=== PATIENT | female | born 1970 | race Caucasian/White ===

== ENCOUNTER 2023-04-13 11:31 | Outpatient (OUT) | payer OTHER, SELFPAY ==
[2023-04-13 12:09] LABS: Bilirubin Urine NEGATIVE (NEGATIVE); Blood Urine NEGATIVE (NEGATIVE); Clarity Urine CLEAR (CLEAR); Color Urine LT. YELLOW (YELLOW); Glucose Urine UA NEGATIVE (NEGATIVE); Ketones Urine NEGATIVE (NEGATIVE); Leukocyte Esterase Urine NEGATIVE (NEGATIVE); Nitrite Urine NEGATIVE (NEGATIVE); Protein Urine NEGATIVE (NEG/TRACE); Specific Gravity Urine 1.015 (1.005-1.025); Urobilinogen Urine 0.2 EU/dL (0.2-1.0); pH Urine 5.5 (5.0-9.0)
[2023-04-13 12:10] LABS: Basophils Absolute Auto 0.2 10^3/uL (0.0-0.1); Basophils Percent Auto 1.1 % (0.2-2.0); Eosinophils Absolute Auto 0.3 10^3/uL (0.0-0.7); Eosinophils Percent Auto 2.2 % (0.9-7.0); Hemoglobin 17.7 g/dL (12.0-16.0); Immature Granulocytes Abs Auto 0.06 10^3/uL (0.00-0.03); Immature Granulocytes Pct Auto 0.4 % (0.0-0.5); Lymphocytes Absolute Auto 4.2 10^3/uL (1.2-3.8); Mean Corpuscular HGB Conc 33.4 g/dL (29.9-35.2); Mean Corpuscular Hemoglobin 28.9 pg (26.7-34.0); Mean Corpuscular Volume 86.6 fL (81.0-99.0); Mean Platelet Volume 11.9 fL (9.5-13.5); Monocytes Absolute Auto 0.9 10^3/uL (0.3-0.8); Monocytes Percent Auto 6.5 % (1.7-12.0); Neutrophils Absolute Auto 8.3 10^3/uL (1.4-6.5); Neutrophils Percent Auto 59.8 % (43.0-75.0); Platelet Count 252 10^3/uL (150-450); Red Blood Count 6.12 10^6/uL (4.20-5.40); Red Cell Distribution Width 13.8 % (11.0-15.0); White Blood Count 13.9 10^3/uL (4.0-11.0)
[2023-04-13 12:15] LABS: Bacteria Urine NONE SEEN #/HPF (NONE SEEN); Mucus Urine NONE SEEN (NONE SEEN); RBC Urine NONE SEEN #/HPF (0-2); Squamous Epithelial Cell Urine FEW #/LPF (NONE/RARE); WBC Urine NONE SEEN #/HPF (NONE SEEN)
[2023-04-13 12:17] LABS: Cast Seen? NONE SEEN #/LPF (NONE SEEN); Crystals Seen? None Seen #/HPF (None Seen)
[2023-04-13 12:52] LABS: Estimated Average Glucose 275 mg/dL; Glycohemoglobin A1C 11.2 % (4.5-6.2)
[2023-04-13 12:59] LABS: Alanine Aminotransferase 30 U/L (14-59); Albumin Globulin Ratio 0.9; Albumin Level 3.7 g/dL (3.4-5.0); Alkaline Phosphatase 88 U/L (46-116); Anion Gap 14.4; Aspartate Amino Transferase 27 U/L (15-37); BUN Creatinine Ratio 10.1; Bilirubin Total 0.5 mg/dL (0.2-1.0); Calcium 9.8 mg/dL (8.5-10.1); Chloride 99 mmol/L (98-107); Cholesterol 175 mg/dL (<=200); Estimated GFR (African America >60 (>=60); Estimated GFR (Non-African Ame >60 (>=60); Globulin 4.2 g/dL; Glucose 131 mg/dL (74-106); HDL Cholesterol 58 mg/dL (40-60); LDL Cholesterol Calculated 97.2 mg/dL; Potassium 4.4 mmol/L (3.5-5.1); Sodium 138 mmol/L (136-145); Total Protein 7.9 g/dL (6.4-8.2); Triglycerides 99 mg/dL (<=150); VLDL CHOLESTEROL 19.8 mg/dL
[2023-04-13 13:35] LABS: Microalbumin Urine Random <1.3 mg/dL (<=30.0)
== END 2023-04-13 11:32 | disposition home or self-care (01) ==
LOC: LAB 11:34
PROVIDERS: PCP Nurse Practitioner; Visit Provider Nurse Practitioner
DX: E78.5 Hyperlipidemia, unspecified (principal); I10 Essential (primary) hypertension; E11.9 Type 2 diabetes mellitus without complications; Z79.4 Long term (current) use of insulin
CPT/HCPCS: 36415; 80053; 80061; 81001; 82043; 83036; 85025

== ENCOUNTER 2023-05-11 12:58 | Outpatient (OUT) | payer OTHER, SELFPAY ==
--- NOTE | 2023-05-11 13:02 | MM_ITS ---
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 MG MAMM SCREEN FARAZ W CAD, 02/14/2018. MG MAMM SCREEN FARAZ W CAD, 02/08/2017. MG MAMM FARAZ SCRN W CAD DIG, 05/16/2014. INDICATIONS: Z12.31 Calculator Name NCI Breast Cancer Risk Assessment Tool 5 Year Breast Cancer Risk 1.00% Lifetime Breast Cancer Risk 7.50% Personal Breast Cancer No Personal Ovarian Cancer No Treatments None Family Cancers None LOCATION: [facility] BREAST COMPOSITION: Scattered areas fibroglandular density. FINDINGS: DIAGNOSTIC CATEGORY 2--BENIGN FINDING: RIGHT BREAST: No significant suspicious finding. Scattered benign-appearing calcifications are present. No significant change has occurred. LEFT BREAST: No significant suspicious finding. Scattered benign-appearing calcifications are present. No significant change has occurred. RECOMMENDATIONS: ROUTINE MAMMOGRAM AND CLINICAL EVALUATION IN 12 MONTHS. PLEASE NOTE: A NORMAL MAMMOGRAM DOES NOT EXCLUDE THE POSSIBILITY OF BREAST CANCER. A CLINICALLY SUSPICIOUS PALPABLE LUMP SHOULD BE BIOPSIED. Dictated by: Juan Francisco Harvey M.D. on 05/13/2023 at 10:44 Approved by: Juan Francisco Harvey M.D. on 05/13/2023 at 10:47
== END 2023-05-11 12:59 | disposition home or self-care (01) ==
LOC: MAMMO 12:58
PROVIDERS: PCP Nurse Practitioner; Visit Provider Nurse Practitioner
DX: Z12.31 Encounter for screening mammogram for malignant neoplasm of breast (principal)
CPT/HCPCS: 77063; 77067

== ENCOUNTER 2024-01-01 15:50 | Emergency (ER) | payer OTHER, SELFPAY ==
[2024-01-01 15:56] VITALS: BP 170/97; PULSE 98; TEMP 36.4; O2SAT 96; BMI 71.8
--- NOTE | 2024-01-01 16:02 | XR_ITS ---
The [address] [address] Patient Name: CAROLE GUTIÉRREZ MRN: [id number] date: 1970 Sex: F Assigned Patient Location: ER Current Patient Location: Accession/Order Number: [id number] Exam Date: 01/01/2024 16:30 Report Date: 01/01/2024 17:13 At the request of: CARLOS ATWOOD Procedure: XR ankle LT min 3V EXAM: XR ankle LT min 3V HISTORY: Fall COMPARISON: None. TECHNIQUE: 3 views of the left ankle FINDINGS: No acute fracture of the left ankle is seen. Acute minimally displaced fracture of the base of the fifth metatarsal is seen. Joint alignment is normal. Ankle mortise is intact. Soft tissue swelling is seen about the lateral ankle. XR/XR ankle LT min 3V IMPRESSION: Acute minimally displaced fracture of the base of the fifth metatarsal is seen. Electronically authenticated by: MILEY MASTERS Date: 01/01/2024 17:13
--- NOTE | 2024-01-01 16:02 | XR_ITS ---
The [address] [address] Patient Name: CAROLE GUTIÉRREZ MRN: [id number] date: 1970 Sex: F Assigned Patient Location: ER Current Patient Location: Accession/Order Number: [id number] Exam Date: 01/01/2024 16:30 Report Date: 01/01/2024 17:12 At the request of: CARLOS ATWOOD Procedure: XR foot LT min 3V EXAM: XR foot LT min 3V HISTORY: fall COMPARISON: None. TECHNIQUE: 3 views of the left foot FINDINGS: Acute minimally displaced fracture of the base of the fifth metatarsal is seen. Joint alignment is normal. Joint spaces are preserved. Soft tissues appear unremarkable. XR/XR foot LT min 3V IMPRESSION: Acute fracture of the base of the fifth metatarsal. Electronically authenticated by: MILEY MASTERS Date: 01/01/2024 17:12
--- NOTE | 2024-01-01 16:02 | ED.LOWEXI1 ---
HPI HPI - Extremity Injury (Lower) General Chief Complaint: Extremity Injury, Lower Stated Complaint: FALL, LOWER EXTREMITY PAIN, LEFT Time Seen by Provider: 01/01/24 15:52 Source: patient Mode of arrival: Wheelchair Limitations: no limitations History of Present Illness HPI Narrative: Patient is a 53-year-old female who presents to the emergency department for injury to the left foot and ankle. She states she was walking about 4 hours ago when she twisted her left ankle in a hole in the ground. She complains of pain diffusely over the left lateral foot and left lateral malleolus. She had no other associated injuries. She states the pain is causing spasms to go up her leg. She took ibuprofen about 4 hours ago without improvement. Her son drove her to the ER. She states initially she was able to bear weight and was able to walk herself into the home but is no longer able to bear weight due to pain. Related Data Previous Rx's ?Medication ?Instructions ?Recorded hydrocodone 5 mg-acetaminophen 325 1 tab PO Q6H PRN pain #12 tabs 01/01/24 mg tablet methocarbamol 750 mg tablet 750 mg PO TID PRN pain #20 tabs 01/01/24 Allergies Allergy/AdvReac Type Severity Reaction Status Date / Time bupropion [From Wellbutrin] Allergy Severe Swelling Verified 01/01/24 15:56 of Lip/Tongue/Throat Opioid HPI Opioid Management Most Recent Pain and Opioid Data: Last Pain Scale 8 01/01/24 16:11 Last MAR Pain Assessment 01/01/24 16:11 Review of Systems ROS Constitutional Denies: fever or chills Ears, nose, mouth, and throat Denies: throat pain Cardiovascular Denies: chest pain Respiratory Denies: shortness of breath or cough Gastrointestinal Denies: nausea or vomiting Musculoskeletal Reports: muscle cramps Integumentary/Breast Denies: rash Hematologic/Lymphatic Denies: easy bruising or easy bleeding Exam Narrative Exam Narrative: Gen.: Awake, alert, in no distress Head: Normocephalic, atraumatic ENT: Moist mucous membranes Respiratory: No respiratory distress Extremities: Tenderness and swelling to the left fifth metatarsal and left lateral malleolus with moderate edema of the ankle. No bony tenderness of the medial or posterior left ankle. No tenderness of the left tibia. Psych: Normal mood and affect Neuro: No focal neuro deficit Skin: Warm, dry, intact Constitutional Vital Signs, click to edit/add: Last Vital Signs Temp 97.6 F 01/01/24 15:56 Pulse 98 H 01/01/24 15:56 Resp 20 01/01/24 15:56 BP 170/97 H 01/01/24 15:56 Pulse Ox 96 01/01/24 15:56 O2 Del Method Room Air 01/01/24 15:56 Course Vital Signs Vital signs: Vital Signs Temperature 97.6 F 01/01/24 15:56 Pulse Rate 98 H 01/01/24 15:56 Respiratory Rate 20 01/01/24 15:56 Blood Pressure 170/97 H 01/01/24 15:56 Pulse Oximetry 96 01/01/24 15:56 Oxygen Delivery Method Room Air 01/01/24 15:56 Temperature 97.6 F 01/01/24 15:56 Pulse Rate 98 H 01/01/24 15:56 Respiratory Rate 20 01/01/24 15:56 Blood Pressure 170/97 H 01/01/24 15:56 Pulse Oximetry 96 01/01/24 15:56 Oxygen Delivery Method Room Air 01/01/24 15:56 MDM - Extremity Injury (Lower) MDM Narrative Medical decision making narrative: X-rays show a minimally displaced fracture of the left fifth metatarsal, proximal aspect. There is also an avulsion of the left distal fibula, the edges of this fracture are smooth and appear old, the patient has no focal tenderness over the left distal fibula on reevaluation by attending physician. She is placed in an Shahab wrap and walking boot. Rest, ice, elevate. Pain medication and muscle relaxant given for home. Follow-up with podiatry and return to the ER if symptoms change or worsen Patient is neurovascularly intact pre and post hardware application. Medical Records Attestation: I reviewed the patient's medical records. Imaging Data xr foot: Attestation: I have reviewed the pertinent imaging results. Discharge Plan Discharge Stand Alone Forms: Portal Instructions Chief Complaint: Extremity Injury, Lower Clinical Impression: Fracture of fifth metatarsal bone of left foot, Left ankle sprain Patient Disposition: Home, Self-Care Time of Disposition Decision: 16:40 Condition: Good Prescriptions / Home Meds: New hydrocodone-acetaminophen 5-325 mg tablet 1 tab PO Q6H PRN (Reason: pain) Qty: 12 0RF Rx Instructions: DX: M79.672 methocarbamol 750 mg tablet 750 mg PO TID PRN (Reason: pain) Qty: 20 0RF Print Language: [place] Citizen Instructions: Foot Fracture in Adults (ED) Referrals: Renee Blount NP [Primary Care Provider] - 1 week Orville Akers DPM [Physician] - 1 week
[2024-01-01] MEDS: HYDROCODONE/ACET 5-325 MG TABLET 1 TAB PO (16:11)
[2024-01-01] MEDS: METHOCARBAMOL 500 MG TABLET PO (16:11)
[2024-01-01 16:58] VITALS: BP 124/68; PULSE 64; O2SAT 96
== END 2024-01-01 16:59 | disposition home or self-care (01) ==
PROVIDERS: Emergency Provider Emergency Medicine; PCP Nurse Practitioner
DX: S92.352A Displaced fracture of fifth metatarsal bone, left foot, initial encounter for closed fracture (principal); S93.402A Sprain of unspecified ligament of left ankle, initial encounter; X50.1XXA Overexertion from prolonged static or awkward postures, initial encounter
CPT/HCPCS: 73610; 73630; 99284

== ENCOUNTER 2024-07-18 10:18 | Outpatient (OUT) | payer OTHER, SELFPAY ==
--- NOTE | 2024-07-18 10:21 | MM_ITS ---
Patient Name: CAROLE GUTIÉRREZ MR#: [id number] : 1970 Exam Date: 07/18/2024 Ordering Doctor: SAMANTHA Blount CNP RADIOLOGY REPORT PROCEDURE: MM TOMOSYNTHESIS SCREENING BI COMPARISON: MM TOMOSYNTHESIS SCREENING BI, 05/11/2023. MG MAMM SCREEN 3D FAR[place] CAD, 04/13/2022. MG MAMM SCREEN FARAZ W CAD, 02/14/2018. MG MAMM [facility] SCRN W CAD DIG, 05/16/2014. INDICATIONS: Screening Calculator Name NCI Breast Cancer Risk Assessment Tool 5 Year Breast Cancer Risk 1.10% Lifetime Breast Cancer Risk 7.40% Personal Breast Cancer No Personal Ovarian Cancer No Treatments None Family Cancers None LOCATION: [facility] BREAST COMPOSITION: There are scattered areas of fibroglandular density. FINDINGS: DIAGNOSTIC CATEGORY 2--BENIGN FINDING: RIGHT BREAST: No significant suspicious finding. Scattered benign-appearing calcifications are present. No significant change has occurred. LEFT BREAST: No significant suspicious finding. Scattered benign-appearing calcifications are present. No significant change has occurred. RECOMMENDATIONS: ROUTINE MAMMOGRAM AND CLINICAL EVALUATION IN 12 MONTHS. PLEASE NOTE: A NORMAL MAMMOGRAM DOES NOT EXCLUDE THE POSSIBILITY OF BREAST CANCER. A CLINICALLY SUSPICIOUS PALPABLE LUMP SHOULD BE BIOPSIED. Dictated by: Juan Francisco Harvey M.D. on 07/18/2024 at 11:15 Approved by: Juan Francisco Harvey M.D. on 07/18/2024 at 11:20
--- OUTSIDE RECORDS SUMMARY | 2024-07-18 10:21 | XMS_ITS | CCD ---
Author Organization [facility] Care Team Providers Care Manager Fund Name Role Phone AICHHOLZ, FUNERAL SALES MANAGER RENEE Primary Care Unavailable DR WYATT EDOUARD V Consulting Unavailable AICHHOLZ, FUNERAL SALES MANAGER RENEE Admitting Unavailable AICHHOLZ, FUNERAL SALES MANAGER RENEE Attending Unavailable AICHHOLZ, FUNERAL SALES MANAGER RENEE Consulting Unavailable AICHHOLZ, FUNERAL SALES MANAGER RENEE Primary Care Unavailable AICHHOLZ, FUNERAL SALES MANAGER RENEE Admitting Unavailable AICHHOLZ, FUNERAL SALES MANAGER RENEE Attending Unavailable AICHHOLZ, FUNERAL SALES MANAGER RENEE Consulting Unavailable Aichholz ROTARY DRYER OPERATOR, Renee Unavailable Mg Moyer MD Primary Care Provider [phone] SHAIKH BAH Attending Unavailable Aichholz FUNERAL SALES MANAGER, Renee Primary Care Provider [phone] Aichholz ROTARY DRYER OPERATOR, Renee Unavailable Mg Moyer MD Primary Care Provider Aichholz ROTARY DRYER OPERATOR, Renee Unavailable Aichholz ROTARY DRYER OPERATOR, Renee Unavailable AICHHOLZ, RENEE Attending Unavailable AICHHOLZ, RENEE Primary Care Unavailable SELF, SELF Referring Unavailable SELF, SELF Referring Unavailable AICHHOLZ, RENEE Attending Unavailable AICHHOLZ, RENEE Primary Care Unavailable AICHHOLZ, RENEE Primary Care Unavailable SELF, SELF Referring Unavailable OLEG BRYSON Attending Unavailable AICHHOLZ, RENEE Primary Care Unavailable RIEHM, RAY L Attending Unavailable SELF, SELF Referring Unavailable RIEHM, RAY L Referring Unavailable AICHHOLZ, RENEE Primary Care Unavailable RIEHM, RAY L Attending Unavailable AICHHOLZ, RENEE Primary Care Unavailable RIEHM, RAY L Attending Unavailable RIEHM, RAY L Referring Unavailable AICHHOLZ, RENEE Primary Care Unavailable AICHHOLZ, RENEE Attending Unavailable SELF, SELF Referring Unavailable RIEHM, RAY L Attending Unavailable AICHHOLZ, RENEE Primary Care Unavailable SELF, SELF Referring Unavailable AICHHOLZ, RENEE Primary Care Unavailable AICHHOLZ, RENEE Attending Unavailable SELF, SELF Referring Unavailable RIEHM, RAY L Referring Unavailable AICHHOLZ, RENEE Primary Care Unavailable RIEHM, RAY L Attending Unavailable RIEHM, RAY L Referring Unavailable AICHHOLZ, RENEE Primary Care Unavailable RIEHM, RAY L Attending Unavailable RIEHM, RAY L Attending Unavailable AICHHOLZ, RENEE Primary Care Unavailable SELF, SELF Referring Unavailable RIEHM, RAY L Referring Unavailable RIEHM, RAY L Attending Unavailable AICHHOLZ, RENEE Primary Care Unavailable Comfort WOODWARD, Mg Primary Care Provider [phone] Allergies Allergy Classification Reported Allergen(s) Allergy Type Date of Onset Reaction(s) Facility (1 source) buPROPion Drug Allergy 04-27-2003 [facility] Repository (18 sources) buPROPion Drug Allergy 07-20-2023 [facility] Medications Current Medications Medication Drug Class(es) Dates Sig (Normalized) Sig (Original) [id number] 200 actuat albuterol 0.09 mg/actuat metered dose inhaler (20 sources) beta2-Adrenergic Agonist Start: 11-14-2023 take 2 puff(s) by inhalation every six hours for wheezing albuterol HFA 90 mcg/act inhaler Indications: Chronic obstructive pulmonary disease, unspecified COPD type ([facility]) , Asthma, unspecified asthma severity, unspecified whether complicated, unspecified whether persistent ([facility]) Inhale 2 puffs every 6 (six) hours if needed for wheezing 18 g 1 11/14/2023 Active Start: 11-14-2023 take 2 puff(s) by in halation every six hours as needed Albuterol 108 (90 Base) MCG/ACT Aero Soln inhaler Inhale 2 puffs Every 6 hours as needed. 11/14/2023 Active Start: 09-28-2023 End: 10-28-2023 albuterol HFA 90 mcg/act inh aler Indications: Chronic obstructive pulmonary disease, unspecified COPD type ([facility]) , Asthma, unspecified asthma severity, unspecified whether complicated, unspecified whether persistent ([facility]) Inhale 2 puffs in the morning and 2 puffs at noon and 2 puffs in the evening and 2 puffs before bedtime. 18 g 1 09/28/2023 10/28/2023 Active albuterol (2.5 M G/3ML) 0.083% nebulizer solution Take 2.5 mg by nebulization every 6 (six) hours if needed for wheezing. Active aspirin 81 mg chewable tablet (4 sources) Platelet Aggregation Inhibitor, Nonsteroidal Anti-inflammatory Drug Start: 07-18-2024 End: 10-16-2024 aspirin 81 MG chewable tablet Indications: Primary hypertension ([facility]) , Type 2 diabetes mellitus without complication, with long-term current use of insulin ([facility]) Chew 1 tablet (81 mg) Daily 90 tablet 3 07/18/2024 10/16/2024 Active atorvastatin 40 mg oral tablet (15 sources) HMG-CoA Reductase Inhibitor Start: 06-12-2024 End: 09-10-2024 take 1 tablet by mouth at bedtime atorvastatin (Lipitor) 40 MG tablet Indications: Mixed hyperlipidemia ([facility]) Take 1 tablet (40 mg) by mouth at bedtime 90 tablet 06/12/2024 09/10/2024 Active Blood Glucose Monitoring Suppl (Blood Glucose Monitor System) w/Device kit (8 sources) End: 07-18-2024 Blood Glucose Monitoring Suppl (Blood Glucose Monitor System) w/Device kit 1 Device in the morning and 1 Device before bedtime. 07/18/2024 Discontinued (Therapy completed) Blood Glucose Mo nitoring Suppl (Blood Glucose Monitor System) w/Device kit 1 Device in the morning and 1 Device before bedtime. Active Blood Glucose Mo nitoring Suppl (Blood Glucose Monitor System) w/Device kit 1 Device in the morning and 1 Device before bedtime. 0 Active Continuous Glucose Global Professional (Dexcom G7 Global Professional) device (8 sources) Start: 06-12-2024 End: 06-12-2025 Continuous Glucose Global Professional (Dexcom G7 Global Professional) device Indications: Type 2 diabetes mellitus without complication, with long-term current use of insulin ([facility]) 1 each Daily 1 each 06/12/2024 06/12/2025 Active End: 06-12-2024 Continuous Glucose Global Professional (Dexcom G7 Global Professional) device 1 each Daily 06/12/2024 Discontinued (Reorder) Continuous Glucose Sensor (Dexcom G7 Sensor) mis (12 sources) Start: 07-18-2024 End: 08-17-2024 Continuous Glucose Sensor (D excom G7 Sensor) mis Indications: Type 2 diabetes mellitus without complication, with long-term current use of insulin (CMS/HCC) 1 each Daily 3 each 07/18/2024 08/17/2024 Active Start: 07-10-2024 End: 07-18-2024 Continuous Glucose Sensor (D excom G7 Sensor) [facility] USE DIRECTED FOR CONTINUOUS GLUCOSE MONITORING. CHANGE SENSOR EVERY 10 DAYS 07/10/2024 07/18/2024 Discontinued (Therapy completed) Start: 06-12-2024 End: 07-18-2024 Continuous Glucose Sensor (D excom G7 Sensor) [facility] Indications: Type 2 diabetes mellitus without complication, with long-term current use of insulin (CMS/HCC) 1 each Daily 3 each 06/12/2024 07/18/2024 Discontinued (Reorder) Start: 06-12-2024 End: 07-12-2024 Continuous Glucose Sensor (D excom G7 Sensor) [facility] Indications: Type 2 diabetes mellitus without complication, with long-term current use of insulin (CMS/HCC) 1 each Daily 3 each 06/12/2024 07/12/2024 Start: 06-12-2024 End: 07-12-2024 Continuous Glucose Sensor (D excom G7 Sensor) [facility] Indications: Type 2 diabetes mellitus without complication, with long-term current use of insulin (CMS/HCC) 1 each Daily 3 each 11 06/12/2024 07/12/2024 Active End: 06-12-2024 Continuous Glucose Sensor (D excom G7 Sensor) [facility] 1 each Daily 06/12/2024 Discontinued (Reorder) dapagliflozin 10 mg oral tablet (16 sources) Sodium-Glucose Cotransporter 2 Inhibitor Start: 11-03-2023 End: 11-02-2024 take 1 tablet by mouth once daily dapagliflozin (Farxiga) 10 MG Indications: Type 2 diabetes mellitus without complication, with long-term current use of insulin (CMS/HCC) Take 1 tablet (10 mg) by mouth Daily 90 tablet 06/12/2024 09/10/2024 Active Start: 07-27-2023 End: 10-28-2023 take 1 tablet by mouth in the morning dapagliflozin (Farxiga) 5 MG Indications: Type 2 diabetes mellitus without complication, with long-term current use of insulin (CMS/HCC) Take 1 tablet (5 mg) by mouth in the morning. 30 tablet 1 09/28/2023 10/28/2023 Active FLUoxetine 20 mg oral capsule (20 sources) Serotonin Reuptake Inhibitor Start: 11-03-2023 End: 09-10-2024 take 1 capsule by mouth once daily FLUoxetine (PROzac) 20 MG capsule Indications: Episode of recurrent major depressive disorder, unspecified depression episode severity (CMS/HCC) Take 1 capsule (20 mg) by mouth Daily 90 capsule 06/12/2024 09/10/2024 Active Start: 09-28-2023 End: 10-28-2023 take 1 capsule by mouth in the morning FLUoxetine (PROzac) 20 MG capsule Indications: Episode of recurrent major depressive disorder, unspecified depression episode severity (CMS/HCC) Take 1 capsule (20 mg) by mouth in the morning. 30 capsule 1 09/28/2023 10/28/2023 Active take 1 capsule by mo [facility] once daily FLUoxetine 10 MG capsule Take 1 capsule by mouth daily. Active 60 actuat fluticasone propionate 0.25 mg/actuat / salmeterol 0.05 mg/actuat dry powder inhaler (13 sources) Corticosteroid, beta2-Adrenergic Agonist Start: 02-13-2024 End: 08-17-2024 Fluticasone-Salmeterol (Advair Diskus) 250-50 MCG/ACT aerosol powder Indications: Chronic obstructive pulmonary disease, unspecified COPD type (CMS/HCC) , Asthma, unspecified asthma severity, unspecified whether complicated, unspecified whether persistent (CMS/HCC) Inhale 1 Inhalation in the morning and 1 Inhalation before bedtime. Rinse mouth after use. 1 each 3 07/18/2024 08/17/2024 Active Fluticasone-Salm eterol (Advair Diskus) 250-50 MCG/ACT aerosol powder Inhale 1 Inhalation in the morning and 1 Inhalation before bedtime. 0 Active insulin glargine 100 unt/ml injectable solution (20 sources) Insulin Analog Start: 07-18-2024 End: 10-16-2024 inject 30 [IU] by subcutaneous injection at bedtime insulin glargine (Lantus) 100 UNIT/ML injection Indications: Type 2 diabetes mellitus without complication, with long-term current use of insulin (CMS/HCC) Inject 30 Units under the skin at bedtime 36 mL 1 07/18/2024 10/16/2024 Active Start: 06-13-2024 End: 07-18-2024 Lantus SoloStar 100 UNIT/ML pen Inject 40 Units under the skin at bedtime 06/13/2024 07/18/2024 Discontinued Start: 06-12-2024 End: 10-16-2024 inject 40 [IU] by subcutaneous injection at bedtime insulin glargine (Lantus) 100 UNIT/ML injection Indications: Type 2 diabetes mellitus without complication, with long-term current use of insulin (CMS/HCC) Inject 40 Units under the skin at bedtime 36 mL 1 07/18/2024 07/18/2024 Discontinued (Reorder) Start: 03-07-2024 End: 06-12-2024 Lantus SoloStar 100 UNIT/ML pen Inject 30 Units under the skin Daily 03/07/2024 06/12/2024 Discontinued (Therapy completed) End: 06-12-2024 inject 40 [IU] by subcutaneous injection once daily Insulin glargine 100 UNIT/ML vial Inject 40 Units under the skin daily. Active isopropyl alcohol 0.7 ml/ml medicated pad (9 sources) Alcohol Swabs pa ds 1 Pad in the morning and 1 Pad before bedtime. Active lisinopril 20 mg oral tablet (15 sources) Angiotensin Converting Enzyme Inhibitor Start: 06-12-20 End: 09-10-19 take 1 tablet by mouth once daily lisinopril 20 MG tablet Indications: Primary hypertension (CMS/HCC) Take 1 tablet (20 mg) by mouth Daily 90 tablet 06/12/2024 09/10/2024 Active meloxicam 7.5 mg oral tablet (14 sources) Nonsteroidal Anti-inflammatory Drug Start: 03-28-20 take 1 tablet by mouth in the morning meloxicam (Mobic) 7.5 MG tablet Take 7.5 mg by mouth in the morning. 03/28/2024 Active metFORMIN hydrochloride 1000 mg oral tablet (20 sources) Biguanide Start: 10-20-19 End: 09-10-19 take 1 tablet by mouth in the morning metFORMIN (Glucophage) 1000 MG tablet Indications: Type 2 diabetes mellitus without complication, with long-term current use of insulin (CMS/HCC) Take 1 tablet (1,000 mg) by mouth in the morning and 1 tablet (1,000 mg) in the evening. Take with meals. 180 tablet 06/12/2024 09/10/2024 Active End: 06-12-2024 take 1 tablet by mouth in the morning, then take 1 tablet by mouth every twenty-four hours at mealtime metFORMIN, OSM, (Fortamet) 1000 MG 24 hr tablet Take 1,000 mg by mouth in the morning and 1,000 mg in the evening. Take with meals. Do not crush, chew, or split. . 06/12/2024 Discontinued (Therapy completed) montelukast 10 mg oral tablet (11 sources) Leukotriene Receptor Antagonist Start: 06-12-2024 End: 09-10-2024 take 1 tablet by mouth at bedtime montelukast (Singulair) 10 MG tablet Indications: Chronic obstructive pulmonary disease, unspecified COPD type (CMS/HCC) Take 1 tablet (10 mg) by mouth at bedtime 90 tablet 06/12/2024 09/10/2024 Active tiZANidine 2 mg oral tablet (10 sources) Central alpha-2 Adrenergic Agonist Start: 02-08-2024 End: 04-10-2024 take 1 tablet by mouth three times daily as needed for muscle spasms Tizanidine 2 MG tablet Take 1 tablet by mouth 3 times daily as needed for Muscle spasms. 21 tablet 04/10/2024 Active traZODone hydrochloride 150 mg oral tablet (11 sources) Serotonin Reuptake Inhibitor Start: 06-12-2024 End: 09-10-2024 take 1 tablet by mouth at bedtime traZODone (Desyrel) 150 MG tablet Indications: Insomnia, unspecified type Take 1 tablet (150 mg) by mouth at bedtime 90 tablet 06/12/2024 09/10/2024 Active Completed/Discontinued Medications Medication Drug Class(es) Dates Sig (Normalized) Sig (Original) 1 ml ketorolac tromethamine 30 mg/ml cartridge (2 sources) Nonsteroidal Anti-inflammatory Drug, Cyclooxygenase Inhibitor Start: 04-10-2024 End: 04-10-2024 Ketorolac (TORADOL) injection 30 mg Start: 04-10-2024 End: 04-10-2024 inject 1 dose by intramuscular injection once 30 mg, Intramuscular, ONCE (IN CLINIC), 1 dose, On Tue04/10/24 at 1530 Problems Active Problems Problem Classification Problem Date Documented Date Episodic/Chronic Asthma (18 sources) Asthma; Translations: [Unspecified asthma, uncomplicated] Onset: 09-28-2023 09-28-2023 Chronic Chronic obstructive pulmonary disease and bronchiectasis (18 sources) Chronic obstructive lung disease; Translations: [Chronic obstructive pulmonary disease, unspecified] Onset: 09-28-2023 09-28-2023 Chronic Diabetes mellitus with complications (12 sources) Hyperglycemia due to type 2 diabetes mellitus; Translations: [Type 2 diabetes mellitus with hyperglycemia] Onset: 04-10-2024 04-10-2024 Chronic Diabetes mellitus without complication (20 sources) Type 2 diabetes mellitus without complications; Translations: [Type 2 diabetes mellitus without complication] Onset: 03-10-2022 Chronic Disorders of lipid metabolism (12 sources) Hyperlipidemia; Translations: [Hyperlipidemia, unspecified] Onset: 09-28-2023 09-28-2023 Chronic Esophageal disorders (9 sources) Gastroesophageal reflux disease; Translations: [Gastro-esophageal reflux disease without esophagitis] Onset: 09-28-2023 09-28-2023 Chronic Essential hypertension (14 sources) Hypertensive disorder; Translations: [Essential (primary) hypertension] Onset: 09-28-2023 09-28-2023 Chronic Genitourinary symptoms and ill-defined conditions (2 sources) Microalbuminuria; Translations: [Proteinuria, unspecified] Onset: 07-18-2024 07-18-2024 Episodic Immunizations and screening for infectious disease (4 sources) Needs influenza immunization; Translations: [Encounter for immunization] Onset: 06-12-2024 06-12-2024 Episodic Mood disorders (12 sources) Recurrent major depressive episodes; Translations: [Major depressive disorder, recurrent, unspecified] Onset: 09-28-2023 09-28-2023 Chronic Other connective tissue disease (5 sources) Pain in left foot; Translations: [Pain in left foot] 02-07-2024 Episodic Other connective tissue disease (1 source) Muscle spasm of cervical muscle of neck; Translations: [Other muscle spasm] 04-10-2024 Episodic Other connective tissue disease (2 sources) Pain in left foot; Translations: [Pain in left foot] Onset: 05-02-2024 Episodic Other connective tissue disease (2 sources) Other muscle spasm; Translations: [Other muscle spasm] Onset: 04-10-2024 Episodic Other nervous system disorders (1 source) Paresthesia of right upper limb; Translations: [Paresthesia of skin] 05-02-2024 Episodic Other non-traumatic joint disorders (1 source) Pain in left knee; Translations: [Pain in joint, lower leg] 06-13-2024 Episodic Other nutritional; endocrine; and metabolic disorders (5 sources) Obese class I; Translations: [Obesity, unspecified] Onset: 04-10-2024 04-10-2024 Chronic Other nutritional; endocrine; and metabolic disorders (13 sources) Body mass index 30+ - obesity; Translations: [Obesity, unspecified] Onset: 05-28-2024 05-28-2024 Chronic Other screening for suspected conditions (not mental disorders or infectious disease) (13 sources) Encounter for screening mammogram for malignant neoplasm of breast; Translations: [Patient encounter status] Onset: 04-13-2022 Episodic Residual codes; unclassified (14 sources) Tobacco user; Translations: [Tobacco use] Onset: 09-28-2023 09-28-2023 Episodic Spondylosis; intervertebral disc disorders; other back problems (1 source) Neck pain; Translations: [Cervicalgia] 05-02-2024 Episodic Unclassified (2 sources) Labs Only; Translations: [Labs Only] Onset: 06-07-2024 Past or Other Problems Problem Classification Problem Date Documented Da te Episodic/Chronic Fracture of lower limb (13 sources) Closed fracture of fifth metatarsal bone; Translations: [Nondisplaced fracture of fifth metatarsal bone, left foot, initial encounter for closed fracture] Onset: 01-09-2024 02-08-2024 Episodic Pathological fracture (8 sources) Pathological fracture due to osteoporosis; Translations: [Age-related osteoporosis with current pathological fracture, unspecified site, subsequent encounter for fracture with routine healing] Onset: 01-09-2024 01-09-2024 Episodic Residual codes; unclassified (11 sources) Insomnia; Translations: [Insomnia, unspecified] Onset: 09-28-2023 09-28-2023 Episodic Results Test Name Value Interpretation Reference Range Facility CBCon 06-07-2024 ABSOLUTE BAS 0.1 10*3/uL Normal 0.0-0.2 [facility] Comment on above: Result Comment: Test ing performed at [place] [address] Performed By: #### B MPF, FX, PHY #### [place] [address] ABSOLUTE EOS 0.4 10*3/uL Normal 0.0-0.7 [facility] Comment on above: Performed By: #### B MPF, FX, PHY #### [place] [address] ABSOLUTE NEUTROPHIL COUNT 7.0 10*3/uL High 1.4-6.[address] [facility] Comment on above: Performed By: #### B MPF, FX, PHY #### [place] [address] Basophils/100 WBC (Bld) 1.2 % Normal 0.0-2.[address] [facility] Comment on above: Performed By: #### B MPF, FX, PHY #### [place] [address] DTYPE AUTO DIFF Normal [facility] Comment on above: Performed By: #### B MPF, FX, PHY #### [place] [address] Eosinophils/100 WBC (Bld) 3.4 % Normal 0.0-11.[address] [facility] Comment on above: Performed By: #### B MPF, FX, PHY #### [place] [address] Lymphocytes (Bld) [#/Vol] 3.2 10*3/uL Normal 1.2-3.[address] [facility] Comment on above: Performed By: #### B MPF, FX, PHY #### Testing performed at [place] [id number] Lymphocytes/100 WBC (Bld) 27.6 % Normal 20.0-55.[address] [facility] Comment on above: Performed By: #### B MPF, FX, PHY #### [place] [address] Monocytes (Bld) [#/Vol] 0.9 10*3/uL High 0.0-0.[address] [facility] Comment on above: Performed By: #### B MPF, FX, PHY #### [place] [address] Monocytes/100 WBC (Bld) 8.1 % Normal 0.0-10.[address] [facility] Comment on above: Performed By: #### B MPF, FX, PHY #### [place] [address] Neutrophils/100 WBC (Bld) 59.7 % Normal 37.0-75.[address] [facility] Comment on above: Performed By: #### B MPF, FX, PHY #### [place] [address] Erythrocyte distribution width (RBC) [Ratio] 17.0 % High 11.5-14.[address] [facility] Comment on above: Performed By: #### B MPF, FX, PHY #### [place] [address] Hematocrit (Bld) [Volume fraction] 47.2 % Normal 36.0-48.[address] [facility] Comment on above: Performed By: #### B MPF, FX, PHY #### [place] [address] Hemoglobin (Bld) [Mass/Vol] 15.4 g/dL Normal 12.0-16.[address] [facility] Comment on above: Performed By: #### B MPF, FX, PHY #### [place] [address] MCH (RBC) [Entitic mass] 27.8 pg Normal 26.0-35.[address] [facility] Comment on above: Performed By: #### B MPF, FX, PHY #### [place] [address] MCHC (RBC) [Mass/Vol] 32.6 g/dL Normal 27.0-37.0 [facility] Comment on above: Performed By: #### B MPF, FX, PHY #### [place] [address] MCV (RBC) [Entitic vol] 85.4 fL Normal 80.0-100.[address] [facility] Comment on above: Performed By: #### B MPF, FX, PHY #### [place] [address] Platelet mean volume (Bld) [Entitic vol] 10.8 fL Normal 7.4-11.[address] [facility] Comment on above: Performed By: #### B MPF, FX, PHY #### [place] [address] Platelets (Bld) [#/Vol] 204 10*3/uL Normal 130-[address] [facility] Comment on above: Performed By: #### B MPF, FX, PHY #### [place] [address] RBC (Bld) [#/Vol] 5.53 10*6/uL High 4.0-5.[address] [facility] Comment on above: Performed By: #### B MPF, FX, PHY #### [place] [address] WBC (Bld) [#/Vol] 11.7 10*3/uL High 3.6-11.[address] [facility] Comment on above: Performed By: #### B MPF, FX, PHY #### [place] [address] CMP FASTINGon 06-07-2024 A:G RATIO 1.3 RATIO Normal 1.3-2.[address] [facility] Comment on above: Performed By: #### B MPF, FX, PHY #### Testing performed at [address] [address] ALBUMIN 4.1 G/dl Normal 3.5-5.[address] [facility] Comment on above: Performed By: #### B MPF, FX, PHY #### Testing performed at [place] [id number] ALP [Catalytic activity/Vol] 97 U/L Normal 38-[address] [facility] Comment on above: Performed By: #### B MPF, FX, PHY #### Testing performed at [address] [address] ALT [Catalytic activity/Vol] 29 U/L Normal <[address] [facility] Comment on above: Performed By: #### B MPF, FX, PHY #### Testing performed at [place] [id number] AST [Catalytic activity/Vol] 25 U/L Normal 14-[address] [facility] Comment on above: Performed By: #### B MPF, FX, PHY #### Testing performed at [address] [address] Bilirubin [Mass/Vol] 0.6 mg/dL Normal 0.2-1.3 [facility] Comment on above: Performed By: #### B MPF, FX, PHY #### Testing performed at [address] [address] Calcium [Mass/Vol] 9.2 mg/dL Normal 8.4-10.[address] [facility] Comment on above: Performed By: #### B MPF, FX, PHY #### Testing performed at [address] [address] Chloride [Moles/Vol] 97 mmol/L Low 98-107 [facility] Comment on above: Result Comment: Pleradha peña note: Triglyceride levels of 600mg/dL or higher may positively bias chloride results by approximately 2.1 mmol Performed By: #### B MPF, FX, PHY #### [place] [address] CO2 [Moles/Vol] 25 mmol/L Normal 22-30 [facility] Comment on above: Performed By: #### B MPF, FX, PHY #### [place] [address] Creatinine [Mass/Vol] 0.50 mg/dL Low 0.7-1.2 [facility] Comment on above: Performed By: #### B MPF, FX, PHY #### [place] [address] EST. GFR, 165 ml/min/1.73sq.m [facility] Comment on above: Performed By: #### B MPF, FX, PHY #### [place] [address] EST. GFR,Non 136 ml/min/1.73sq.m [facility] Comment on above: Performed By: #### B MPF, FX, PHY #### [place] [address] GFR Information Average GFR for 50-5 9 years old = 93. Normal [facility] Comment on above: Result Comment: Complex Human Resources Manager juan alberto Kidney disease, GFR = <60. Kidney failure, GFR = <15. The GFR estimate is not adjusted for extreme body surface area or acute process, nor has it been validated for women or ethnic groups other than and . Testing performed at [place] [address] Performed By: #### B MPF, FX, PHY #### [place] [address] Glucose [Mass/Vol] 336 mg/dL High 70-[address] [facility] Comment on above: Result Comment: NORMAL <100 mg/dL PREDIABETES 101-126 mg/dL DIABETES 126 mg/dL or higher Performed By: #### B MPF, FX, PHY #### Testing performed at [address] [address] Potassium [Moles/Vol] 4.8 mmol/L Normal 3.5-5.1 [facility] Comment on above: Performed By: #### B MPF, FX, PHY #### Testing performed at [address] [address] Protein [Mass/Vol] 7.2 g/dL Normal 6.3-8.[address] [facility] Comment on above: Performed By: #### B MPF, FX, PHY #### Testing performed at [address] [address] Sodium [Moles/Vol] 132 mmol/L Low 137-[address] [facility] Comment on above: Performed By: #### B MPF, FX, PHY #### Testing performed at [place] [id number] Urea nitrogen [Mass/Vol] 16 mg/dL Normal 7-[address] [facility] Comment on above: Performed By: #### B MPF, FX, PHY #### Testing performed at [place] [id number] FAX REQUESTon 06-07-2024 FAX TO [phone] [facility] Comment on above: Performed By: #### B MPF, FX, PHY #### Testing performed at [address] [address] FAX TO [phone] [facility] Comment on above: Performed By: #### B MPF, FX, PHY #### Testing performed at [address] [address] FAX TO [phone] [facility] Comment on above: Performed By: #### P HY, HA1CT, FX #### Testing performed at [address] [address] FAX TO [phone] [facility] Comment on above: Performed By: #### B MPF, FX, PHY #### [place] [address] FAX TO [phone] [facility] Comment on above: Performed By: #### P HY, FX, TSH2 #### [place] [address] FAX TO [phone] [facility] Comment on above: Performed By: #### A CBC, FX, LIP2, PHY, CMPF #### [place] [address] FREE T4on 06-07-2024 Free T4 [Mass/Vol] 1.07 ng/dL Normal 0.78-2.[address] [facility] Comment on above: Result Comment: Test ing performed at [place] [address] Performed By: #### B MPF, FX, PHY #### Testing performed at [address] 06-07-20 24 [facility] Comment on above: Performed By: #### B MPF, FX, PHY #### Testing performed at [address] Comment on above: Performed By: #### B MPF, FX, PHY #### Testing performed at [address] Comment on above: Performed By: #### P HY, HA1CT, FX #### Testing performed at [address] Comment on above: Performed By: #### B MPF, FX, PHY #### [place] [address] [facility] Comment on above: Performed By: #### P HY, FX, TSH2 #### Testing performed at [address] [address] GAL [facility] PH[facility] Renee Blount Normal [facility] Comment on above: Performed By: #### B MPF, FX, PHY #### Testing performed at [address] [address] HEMOGLOBIN A1Con 06-07-2024 Glucose [Mass/Vol] 260 mg/dL Normal [facility] Comment on above: Result Comment: Test ing performed at [place] [address] Performed By: #### P HY, HA1CT, FX #### [place] [address] HbA1c (Bld) [Mass fraction] 10.7 % High 0-[address] [facility] Comment on above: Result Comment: NORMAL <5.7% PREDIABETES 5.7-6.4% DIABETES 6.5% OR HIGHER Performed By: #### P HY, HA1CT, FX #### Testing performed at [address] [address] LIPID PROFILEon 06-07-2024 Cholesterol [Mass/Vol] 220 mg/dL High 107-[address] [facility] Comment on above: Performed By: #### B MPF, FX, PHY #### Testing performed at [address] [address] Cholesterol in HDL [Mass/Vol] 74 mg/dL Normal 33-[address] [facility] Comment on above: Performed By: #### B MPF, FX, PHY #### Testing performed at [address] [address] Cholesterol in LDL [Mass/Vol] 104 mg/dL High <[address] [facility] Comment on above: Performed By: #### B MPF, FX, PHY #### Testing performed at [address] [address] Cholesterol in VLDL [Mass/Vol] 42 mg/dL High 5.0-[address] [facility] Comment on above: Performed By: #### B MPF, FX, PHY #### [place] [address] Cholesterol.total/Cho lesterol in HDL [Mass ratio] 2.97 {ratio} Normal [facility] Comment on above: Result Comment: RISK TOTAL/HDL RATIO MEN WOMEN 1/2 AVERAGE 3.43 3.27 AVERAGE 4.97 4.44 2X AVERAGE 9.55 7.05 3X AVERAGE 23.99 11.04 Testing performed at [place] [address] Performed By: #### B MPF, FX, PHY #### [place] [address] Triglyceride [Mass/Vol] 209 mg/dL High 0-[address] [facility] Comment on above: Performed By: #### B MPF, FX, PHY #### [place] [address] MALB/CREAT RATIO,URINEon MALB/CREAT RATIO,URINE 29.0 mg MALB/g CREAT Normal 1.3-30.0 [facility] Comment on above: Result Comment: Test ing performed at [place] [address] Performed By: #### B MPF, FX, PHY #### [place] [address] MICROALBUMIN,RANDOM URINE 17.9 mg/L High 0-16.[address] [facility] Comment on above: Performed By: #### B MPF, FX, PHY #### [place] [address] URINE CREATININE RANDOM 61.8 MG/DL Normal [facility] Comment on above: Result Comment: NO N ORMAL VALUES ESTABLISHED FOR RANDOM SPECIMENS Performed By: #### B MPF, FX, PHY #### [place] [address] TSHon 06-07-2024 TSH 2.230 uIU/ML Normal 0.46-4.[address] [facility] Comment on above: Result Comment: Test ing performed at [place] [address] Performed By: #### P HY, FX, TSH2 #### [place] [address] URINE MACROSCOPICon 06-07-20 24 Bilirubin Ql (U) Negative Normal NEGATIVE [facility] Comment on above: Performed By: #### B MPF, FX, PHY #### [place] [address] Clarity (U) CLEAR Normal CLEAR [facility] Comment on above: Performed By: #### B MPF, FX, PHY #### [place] [address] Color (U) YELLOW Normal YELLOW [facility] Comment on above: Performed By: #### B MPF, FX, PHY #### [place] [address] Glucose Ql (U) 500 mg/dl Abnormal NEGAT[facility] Comment on above: Performed By: #### B MPF, FX, PHY #### [place] [address] pH (U) 5.5 [pH] Normal 5.0-7.[address] [facility] Comment on above: Performed By: #### B MPF, FX, PHY #### [place] [address] URINE HEMOGLOBIN Negative Normal NEGATIVE [facility] Comment on above: Performed By: #### B MPF, FX, PHY #### [place] [address] URINE KETONE TRACE Abnormal NEGATIVE [facility] Comment on above: Performed By: #### B MPF, FX, PHY #### [place] [address] URINE LEUKOTEST Negative Normal NEGATIVE [facility] Comment on above: Performed By: #### B MPF, FX, PHY #### [place] [address] URINE NITRATES Negative Normal NEGATIVE [facility] Comment on above: Performed By: #### B MPF, FX, PHY #### [place] [address] URINE SPEC GRAVITY 1.015 Normal 1.010-1.[address] [facility] Comment on above: Performed By: #### B MPF, FX, PHY #### [place] [address] URINE TOTAL PROTEIN Negative Normal NEGATIVE [facility] Comment on above: Performed By: #### B MPF, FX, PHY #### [place] [address] Urobilinogen Qn (U) 0.2 {Zuhair'U}/dL Normal 0.2-1.[address] [facility] Comment on above: Performed By: #### B MPF, FX, PHY #### [place] [address] URINE MICROSCOPICon 06-07-20 24 BACTERIA TRACE Abnormal NEGATIVE [facility] Comment on above: Performed By: #### B MPF, FX, PHY #### [place] [address] CASTS NONE Normal [facility] Comment on above: Performed By: #### B MPF, FX, PHY #### [place] [address] CRYSTAL NONE Normal NONE [facility] Comment on above: Performed By: #### B MPF, FX, PHY #### [place] [address] Epithelial cells LM Ql (Urine sed) 1 TO [address] [facility] Comment on above: Performed By: #### B MPF, FX, PHY #### [place] [address] Mucus Ql (Urine sed) Negative Normal NEGATIVE [facility] Comment on above: Performed By: #### B MPF, FX, PHY #### Testing performed at [place] [address] [place] [address] URINE COMMENT CULTURE CRITERIA NOT MET, NO CULTURE PERFORMED. Normal [facility] Comment on above: Performed By: #### B MPF, FX, PHY #### Testing performed at [facility] [address] [place] [address] URINE RBC'S Negative Normal NEGATIVE [facility] Comment on above: Performed By: #### B MPF, FX, PHY #### Testing performed at [address] [address] URINE WBC'S 1 TO [address] [facility] Comment on above: Performed By: #### B MPF, FX, PHY #### Testing performed at [place] [id number] MRI FOOT LEFT WITHOUT CONTRA STon 06-06-2024 MRI FOOT LEFT WITHOUT CONTRAST EXAM: MRI FOOT LEFT WITHOUT CONTRAST REASON FOR EXAM: Left foot pain, concerns for non-union fx at 5th MT left. TECHNIQUE: Multiplanar, multisequence imaging of the left foot was performed without contrast COMPARISON: Radiographs 05/02/2024. FINDINGS: Bone marrow signal is without acute fracture. There is a subacute incompletely healed fifth metatarsal base fracture, which appears somewhat comminuted. The margins on the T1 sequences appears somewhat corticated and likely reflect malunited fracture. The remaining bone marrow signal is without acute or aggressive osseous abnormality. The midfoot appears congruent. The Lisfranc ligament is intact. Mild midfoot osteoarthritis. The tibiotalar and subtalar joints appear congruent. Mild to moderate osteoarthritis of the posterior subtalar joint. Mildly edematous sinus tarsi. The visualized ankle tendons are grossly intact. There is mild to moderate first through third intermetatarsal web space bursitis. A discrete neuroma is not identified. Remaining soft tissues are unremarkable. IMPRESSION: 1. Comminuted incompletely healed fifth metatarsal base fracture. Fracture margins appear partially corticated and potentially reflect nonunion. 2. Mild mid and hindfoot osteoarthritis. Normal [facility] [place] [facility] FAX REQUESTon 10-18-2023 FAX TO [phone] [facility] Comment on above: Result Comment: SUSANNAH ECTED ON 10/18 AT 1456: PREVIOUSLY REPORTED UNKNOWN AT THIS TIME. LEFT VOICEMAIL AT OFFICE ASKING FOR FAX NUMBER Performed By: #### B MPF, FX, PHY #### [place] [address] FAX TO [phone] [facility] Comment on above: Result Comment: SUSANNAH ECTED ON 10/18 AT 1456: PREVIOUSLY REPORTED UNKNOWN AT THIS TIME Performed By: #### B MPF, FX, PHY #### [place] [address] BMP FASTINGon 10-17-2023 Anion gap [Moles/Vol] 8 mmol/L Normal 8-16 [facility] Comment on above: Performed By: #### B MPF, FX, PHY #### [place] [address] Calcium [Mass/Vol] 9.2 mg/dL Normal 8.4-10.[address] [facility] Comment on above: Performed By: #### B MPF, FX, PHY #### [place] [address] Chloride [Moles/Vol] 104 mmol/L Normal 98-107 [facility] Comment on above: Result Comment: Plea se note: Triglyceride levels of 600mg/dL or higher may positively bias chloride results by approximately 2.1 mmol Performed By: #### B MPF, FX, PHY #### [place] [address] CO2 [Moles/Vol] 23 mmol/L Normal 22-30 [facility] Comment on above: Performed By: #### B MPF, FX, PHY #### [place] [address] Creatinine [Mass/Vol] 0.60 mg/dL Low 0.7-1.2 [facility] Comment on above: Performed By: #### B MPF, FX, PHY #### [place] [address] EST. GFR, 134 ml/min/1.73sq.m [facility] Comment on above: Performed By: #### B MPF, FX, PHY #### [place] [address] EST. GFR,Non 110 ml/min/1.73sq.m [facility] Comment on above: Performed By: #### B MPF, FX, PHY #### [place] [address] GFR Information Average GFR for 50-5 9 years old = 93. Normal [facility] Comment on above: Result Comment: Complex Human Resources Manager juan alberto Kidney disease, GFR = <60. Kidney failure, GFR = <15. The GFR estimate is not adjusted for extreme body surface area or acute process, nor has it been validated for women or ethnic groups other than and . Testing performed at [place] [address] Performed By: #### B MPF, FX, PHY #### [place] [address] Glucose [Mass/Vol] 152 mg/dL High 70-[address] [facility] Comment on above: Result Comment: NORMAL <100 mg/dL PREDIABETES 101-126 mg/dL DIABETES 126 mg/dL or higher Performed By: #### B MPF, FX, PHY #### [place] [address] Potassium [Moles/Vol] 4.2 mmol/L Normal 3.5-5.1 [facility] Comment on above: Performed By: #### B MPF, FX, PHY #### [place] [address] Sodium [Moles/Vol] 135 mmol/L Low 137-[address] [facility] Comment on above: Performed By: #### B MPF, FX, PHY #### [place] [address] Urea nitrogen [Mass/Vol] 9 mg/dL Normal 7-[address] [facility] Comment on above: Performed By: #### B MPF, FX, PHY #### [place] [address] GAL NEW PHYSICIANon 10-17-19 [facility] PHYS[facility] RENEE BLOUNT, IMER Normal [facility] Comment on above: Performed By: #### B MPF, FX, PHY #### Testing performed at [address] PHYSICIAN RENEE BLOUNT, IMER Normal [facility] Comment on above: Performed By: #### B MPF, FX, PHY #### [place] [address] HEMOGLOBIN A1Con 10-17-2023 Glucose [Mass/Vol] 197 mg/dL Normal [facility] Comment on above: Result Comment: Test ing performed at [place] [address] Performed By: #### B MPF, FX, PHY #### [place] [address] HbA1c (Bld) [Mass fraction] 8.5 % High 0-[address] [facility] Comment on above: Result Comment: NORMAL <5.7% PREDIABETES 5.7-6.4% DIABETES 6.5% OR HIGHER Performed By: #### B MPF, FX, PHY #### [place] [address] MG MAMM SCREEN 3D FARAZ CADon 04-13-2022 MG MAMM SCREEN 3D FARAZ CAD Patient: JANICE NUGENT Exam Date: 04/13/2022 : 1970 Gender:F 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 MG MAMM SCREEN FARAZ W CAD, 02/14/2018. INDICATIONS: Screening mammography Calculator Name NCI Breast Cancer Risk Assessment Tool 5 Year Breast Cancer Risk 1.00% Lifetime Breast Cancer Risk 7.70% Personal Breast Cancer No Personal Ovarian Cancer No Treatments None Family Cancers None LOCATION: [facility] BREAST COMPOSITION: Scattered areas fibroglandular density. FINDINGS: DIAGNOSTIC CATEGORY 2--BENIGN FINDING: Scattered benign-appearing calcifications are present. Scattered benign-appearing lymph nodes are present. RIGHT BREAST: No significant suspicious finding. LEFT BREAST: No significant suspicious finding. RECOMMENDATIONS: ROUTINE MAMMOGRAM AND CLINICAL EVALUATION IN 12 MONTHS. PLEASE NOTE: A NORMAL MAMMOGRAM DOES NOT EXCLUDE THE POSSIBILITY OF BREAST CANCER. A CLINICALLY SUSPICIOUS PALPABLE LUMP SHOULD BE BIOPSIED. Dictated by: Wyatt Edouard MD on 04/13/2022 at 14:36 Approved by: Wyatt Edouard MD on 04/13/2022 at 14:38 Normal [facility] CBC AUTO DIFFon 03-10-2022 BASO # 0.1 103/ul Normal 0.0-0.1 [facility] Comment on above: Performed By: #### C BC #### [facility] [address] [place] [address] Dr. Jean Zabala Basophils/100 WBC (Bld) 1.1 % Normal 0.2-2.0 [facility] Comment on above: Performed By: #### C BC #### [facility] [address] [place] [address] Dr. Jean Zabala EO # 0.3 103/ul Normal 0.0-0.7 [facility] Comment on above: Performed By: #### C BC #### [facility] [address] [place] [address] Dr. Jean Zabala Eosinophils/100 WBC (Bld) 2.3 % Normal 0.9-7.0 [facility] Comment on above: Performed By: #### C BC #### [facility] [address] [place] [address] Dr. Jean Zabala Erythrocyte distribution width (RBC) [Ratio] 14.1 % Normal 11.0-15.0 [facility] Comment on above: Performed By: #### C BC #### [facility] [address] [place] [address] Dr. Jean Zabala Hematocrit (Bld) [Volume fraction] 53.8 % Critically high 36.0-48.0 [facility] Comment on above: Performed By: #### C BC #### [facility] [address] [place] [address] Dr. Jean Zabala Hemoglobin (Bld) [Mass/Vol] 17.7 g/dL Critically high 12.0-16.0 [facility] Comment on above: Performed By: #### C BC #### [facility] [address] [place] [address] Dr. Jean Zabala IG # 0.08 10e3/ul Critically high 0.00-0.03 [facility] Comment on above: Performed By: #### C BC #### [facility] [address] [place] [address] Dr. Jean Zabala IG % 0.7 % Critically high 0.0-0.5 [facility] Comment on above: Performed By: #### C BC #### [facility] [address] [place] [address] Dr. Jean Zabala LYMPH # 4.6 103/ul Critically high 1.2-3.8 [facility] Comment on above: Performed By: #### C BC #### [facility] [address] [place] [address] Dr. Jean Zabala Lymphocytes/100 WBC (Bld) 37.2 % Normal 20.5-60.0 [facility] Comment on above: Performed By: #### C BC #### [facility] [address] [place] [address] Dr. Jean Zabala MANUAL DIFF REQ NO Normal [facility] Comment on above: Performed By: #### C BC #### [facility] [address] [place] [address] Dr. Jean Zabala MCH (RBC) [Entitic mass] 28.4 pg Normal 26.7-34.0 [facility] Comment on above: Performed By: #### C BC #### [facility] [address] [place] [address] Dr. Jean Zabala MCHC (RBC) [Mass/Vol] 32.9 g/dL Normal 29.9-35.2 [facility] Comment on above: Performed By: #### C BC #### [facility] [address] [place] [address] [address] Jean Zabala MCV (RBC) [Entitic vol] 86.2 fL Normal 81.0-99.0 [facility] Comment on above: Performed By: #### C BC #### [facility] [address] [place] [address] [address] Jean Zabala MONO # 0.8 103/ul Normal 0.3-0.8 [facility] Comment on above: Performed By: #### C BC #### [facility] [address] [place] [address] [address] Jean Zabala Monocytes/100 WBC (Bld) 6.1 % Normal 1.7-12.0 [facility] Comment on above: Performed By: #### C BC #### [facility] [address] [place] [address] Dr. Jean Zabala NEUT # 6.5 103/ul Normal 1.4-6.5 [facility] Comment on above: Performed By: #### C BC #### [facility] [address] [place] [address] Dr. Jean Zabala Neutrophils/100 WBC (Bld) 52.6 % Normal 43.0-75.0 [facility] Comment on above: Performed By: #### C BC #### [facility] [address] [place] [address] Dr. Jean Zabala Platelet mean volume (Bld) [Entitic vol] 13.1 fL Normal 9.5-13.5 [facility] Comment on above: Performed By: #### C BC #### [facility] [address] [place] [address] Dr. Jean Zabala PLT 187 103/ul Normal 150-450 [facility] Comment on above: Performed By: #### C BC #### [facility] [address] [place] [address] Dr. Jean Zabala RBC 6.24 106/ul Critically high 4.20-5.40 [facility] Comment on above: Performed By: #### C BC #### [facility] [address] [place] [address] Dr. Jean Zabala WBC 12.2 103/ul Critically high 4.0-11.0 [facility] Comment on above: Performed By: #### C BC #### [facility] [address] [place] [address] [address] Jean Zabala GLYCOHEMOGLOBIN A1Con 2021 ADA RECOMMENDATION SEE BELOW Normal [facility] Comment on above: Result Comment: ADA RECOMMENDED LIMIT 4.0 - 6.0 ADA THERAPEUTIC TARGET < 7.0 ACTION SUGGESTED > 7.0 Performed By: #### A 1C #### [facility] [address] [place] [address] [address] Jean Zabala Glucose [Mass/Vol] 269 mg/dL Normal [facility] Comment on above: Performed By: #### A 1C #### [facility] [address] [place] [address] Dr. Jean Zabala HbA1c (Bld) [Mass fraction] 11.0 % Critically high 4.5-6.2 [facility] Comment on above: Performed By: #### A 1C #### [facility] [address] [place] [address] Dr. Jean Zabala LIPID PROFILEon 03-10-2022 CHOL-HDL RATIO NORM SEE BELOW Normal [facility] Comment on above: Result Comment: 3.3 - 4.4 LOW RISK 4.4 - 7.1 AVERAGE RISK 7.1 - 11.0 MODERATE RISK >11.0 HIGH RISK Performed By: #### L IPID, CMP #### [facility] [address] [place] [address] Dr. Jean Zabala Cholesterol [Mass/Vol] 282 mg/dL Critically high <=200 [facility] Comment on above: Performed By: #### L IPID, CMP #### [facility] [address] [place] [address] Dr. Jean Zabala Cholesterol in HDL [Mass/Vol] 58 mg/dL Normal 40-60 [facility] Comment on above: Performed By: #### L IPID, CMP #### [facility] [address] [place] [address] [address] Jean Zabala Cholesterol in LDL [Mass/Vol] 199.2 mg/dL Normal [facility] Comment on above: Performed By: #### L IPID, CMP #### [facility] [address] [place] [address] [address] Jean Zabala Cholesterol.total/Cho lesterol in HDL [Mass ratio] 4.9 {ratio} Normal [facility] Comment on above: Performed By: #### L IPID, CMP #### [facility] [address] [place] [address] [address] Jean Zabala HDL NORMAL > or = 60 mg/dl - LO W CARDIOVASCULAR RISK <40 mg/dl - HIGH CARDIOVASCULAR RISK Normal [facility] Comment on above: Performed By: #### L IPID, CMP #### [facility] [address] [place] [address] [address] Jean Zabala LDL CALC NORMAL SEE BELOW Normal [facility] Comment on above: Result Comment: <100 mg/dl OPTIMAL 100 - 129 mg/dl NEAR OR ABOVE OPTIMAL 130 - 159 mg/dl BORDERLINE HIGH 160 - 189 mg/dl HIGH >190 mg/dl VERY HIGH Performed By: #### L IPID, CMP #### [facility] [address] [place] [address] [address] Jean Zabala Triglyceride [Mass/Vol] 124 mg/dL Normal <=150 [facility] Comment on above: Performed By: #### L IPID, CMP #### [facility] [address] [place] [address] [address] Jean Zabala VLDL CALC 24.8 mg/dL Normal [facility] Comment on above: Performed By: #### L IPID, CMP #### [facility] [address] [place] [address] [address] Jean Zabala MICROALBUMIN, RAND URon 02-20 mALB 5.8 mg/L Normal <=30.0 [facility] Comment on above: Performed By: #### M ALBR #### [facility] [address] [place] [address] [address] Jean Zabala PROF 14(COMP METB)on 022 Albumin [Mass/Vol] 3.6 g/dL Normal 3.4-5.0 [facility] Comment on above: Performed By: #### L IPID, CMP #### [facility] [address] [place] [address] [address] Jean Zabala Albumin/Globulin [Mass ratio] 0.9 {ratio} Normal [facility] Comment on above: Performed By: #### L IPID, CMP #### [facility] [address] [address] [address] Jean Zabala ALP [Catalytic activity/Vol] 98 U/L Normal 46-116 [facility] Comment on above: Performed By: #### L IPID, CMP #### [facility] [address] [address] [address] Jean Zabala ALT [Catalytic activity/Vol] 25 U/L Normal 14-59 [facility] Comment on above: Performed By: #### L IPID, CMP #### [facility] [address] [address] [address] Jean Zabala Anion gap [Moles/Vol] 12.8 mmol/L Normal [facility] Comment on above: Performed By: #### L IPID, CMP #### [facility] [address] [address] [address] Jean Zabala AST [Catalytic activity/Vol] 17 U/L Normal 15-37 [facility] Comment on above: Performed By: #### L IPID, CMP #### [facility] [address] [address] [address] Jean Zabala Bilirubin [Mass/Vol] 0.4 mg/dL Normal 0.2-1.0 [facility] Comment on above: Performed By: #### L IPID, CMP #### [facility] [address] [address] [address] Jean Zabala Calcium [Mass/Vol] 9.1 mg/dL Normal 8.5-10.1 [facility] Comment on above: Performed By: #### L IPID, CMP #### [facility] [address] [address] [address] Jean Zabala Chloride [Moles/Vol] 100 mmol/L Normal 98-107 [facility] Comment on above: Performed By: #### L IPID, CMP #### [facility] [address] [place] [address] Dr. Jean Zabala CO2 [Moles/Vol] 27.2 mmol/L Normal 21.0-32.0 [facility] Comment on above: Performed By: #### L IPID, CMP #### [facility] [address] [place] [address] Dr. Jean Zabala Creatinine [Mass/Vol] 0.74 mg/dL Normal 0.55-1.02 [facility] Comment on above: Performed By: #### L IPID, CMP #### [facility] [address] [place] [address] Dr. Jean Zabala EGFR-AF BARBADIAN >60 Normal >=60 [facility] Comment on above: Performed By: #### L IPID, CMP #### [facility] [address] [place] [address] Dr. Jean Zabala EGFR-NON AF BARBADIAN >60 Normal >=60 [facility] Comment on above: Performed By: #### L IPID, CMP #### [facility] [address] [place] [address] Dr. Jean Zabala Globulin (S) [Mass/Vol] 3.8 g/dL Normal [facility] Comment on above: Performed By: #### L IPID, CMP #### [facility] [address] [place] [address] Dr. Jean Zabala Glucose [Mass/Vol] 279 mg/dL Critically high 74-106 [facility] Comment on above: Performed By: #### L IPID, CMP #### [facility] [address] [place] [address] Dr. Jean Zabala Potassium [Moles/Vol] 4.0 mmol/L Normal 3.5-5.1 [facility] Comment on above: Performed By: #### L IPID, CMP #### [facility] [address] [place] [address] Dr. Jean Zabala Protein [Mass/Vol] 7.4 g/dL Normal 6.4-8.2 [facility] Comment on above: Performed By: #### L IPID, CMP #### [facility] [address] [place] [address] Dr. Jean Zabala Sodium [Moles/Vol] 136 mmol/L Normal 136-145 [facility] Comment on above: Performed By: #### L IPID, CMP #### [facility] [address] [place] [address] Dr. Jean Zabala Urea nitrogen [Mass/Vol] 12.0 mg/dL Normal 7.0-18.0 [facility] Comment on above: Performed By: #### L IPID, CMP #### [facility] [address] [place] [address] Dr. Jean Zabala Urea nitrogen/Creatinine [Mass ratio] 16.2 mg/mg Normal [facility] Comment on above: Performed By: #### L IPID, CMP #### [facility] [address] [place] [address] Dr. Jean Zabala UA RANDOM W/MICROSCOPICon BACTERIA NONE SEEN Normal NONE SEEN [facility] Comment on above: Performed By: #### U AMIC #### [facility] [address] [place] [address] Dr. Jean Zabala Bilirubin Ql (U) Negative Normal NEGATIVE [facility] Comment on above: Performed By: #### U AMIC #### [facility] [address] [place] [address] Dr. Jean Zabala CAST NONE SEEN Normal NONE SEEN [facility] Comment on above: Performed By: #### U AMIC #### [facility] [address] [place] [address] Dr. Jean Zabala Clarity (U) SL CLOUDY Abnormal CLEAR [facility] Comment on above: Performed By: #### U AMIC #### [facility] [address] [place] [address] Dr. Jean Zabala Color (U) YELLOW Normal YELLOW [facility] Comment on above: Performed By: #### U AMIC #### [facility] [address] [address] [address] Jean Zabala Crystals LM Nom (Urine sed) NONE SEEN Normal NONE SEEN [facility] Comment on above: Performed By: #### U AMIC #### [facility] [address] [place] [address] Dr. Jean Zabala Epithelial cells LM Ql (Urine sed) FEW Abnormal NONE SEEN /RARE [facility] Comment on above: Performed By: #### U AMIC #### [facility] [address] [address] [address] Jean Zabala Glucose Ql (U) 500 mg/dl Abnormal NEGATIVE [facility] Comment on above: Performed By: #### U AMIC #### [facility] [address] [place] [address] Dr. Jean Zabala Hemoglobin Ql (U) Negative Normal NEGATIVE [facility] Comment on above: Performed By: #### U AMIC #### [facility] [address] [place] [address] Dr. Jean Zabala Ketones Ql (U) Negative Normal NEGATIVE [facility] Comment on above: Performed By: #### U AMIC #### [facility] [address] [place] [address] Dr. Jean Zabala LEUKOCYTES Negative Normal NEGATIVE [facility] Comment on above: Performed By: #### U AMIC #### [facility] [address] [place] [address] Dr. Jaen Zabala MUCOUS NONE SEEN Normal NONE SEEN [facility] Comment on above: Performed By: #### U AMIC #### [facility] [address] [place] [address] Dr. Jean Zabala Nitrite Ql (U) Negative Normal NEGATIVE [facility] Comment on above: Performed By: #### U AMIC #### [facility] [address] [place] [address] Dr. Jean Zabala pH (U) 6.0 [pH] Normal 5-9 [facility] Comment on above: Performed By: #### U AMIC #### [facility] [address] [place] [address] Dr. Jean Zabala RBC NONE SEEN Abnormal 0-2 [facility] Comment on above: Performed By: #### U AMIC #### [facility] [address] [address] [address] Jean Zabala SPEC GRAVITY 1.025 Normal 1.005-<=1.025 [facility] Comment on above: Performed By: #### U AMIC #### [facility] [address] [address] [address] Jean Zabala UA PROTEIN TRACE Normal NEGATIVE/ TRACE [facility] Comment on above: Performed By: #### U AMIC #### [facility] [address] [address] [address] Jean Zabala Urobilinogen Qn (U) 0.2 {Zuhair'U}/dL Normal 0.2 - 1. 0 [facility] Comment on above: Performed By: #### U AMIC #### [facility] [address] [address] [address] Jean Zabala WBC 0-2 Abnormal NONE SEEN [facility] Comment on above: Performed By: #### U AMIC #### [facility] [address] [address] [address] Jean Zabala Vital Signs Date Time Vital Sign Value Performing Clinician Facility 07-18-2024 09:28-0500 Body height 160 cm Renee Blount ROTARY DRYER OPERATOR Work Phone: [facility] 07-18-2024 09:28-0500 Body mass index (BMI) [Ratio] 31.14 kg/m2 Renee Blount ROTARY DRYER OPERATOR Work Phone: [facility] 07-18-2024 09:28-0500 Body temperature 98.6 [degF] Renee Blount ROTARY DRYER OPERATOR Work Phone: [facility] 07-18-2024 09:28-0500 Body weight 79.74 kg Renee Blount ROTARY DRYER OPERATOR Work Phone: [facility] 07-18-2024 09:28-0500 Diastolic blood pressure 78 mm[Hg] Renee Blount ROTARY DRYER OPERATOR Work Phone: [facility] 07-18-2024 09:28-0500 Heart rate 88 /min Renee Blount ROTARY DRYER OPERATOR Work Phone: [facility] 07-18-2024 09:28-0500 Respiratory rate 18 /min Renee Blount ROTARY DRYER OPERATOR Work Phone: [facility] 07-18-2024 09:28-0500 SaO2% (BldA) [Mass fraction] 93 % Renee Blount ROTARY DRYER OPERATOR Work Phone: [facility] 07-18-2024 09:28-0500 Systolic blood pressure 104 mm[Hg] Renee Maryz ROTARY DRYER OPERATOR Work Phone: [facility] 06-13-2024 14:19-0400 Body height 157.5 cm Ray Cedeñom DO Work Phone: [facility] 06-13-2024 14:19-0400 Body mass index (BMI) [Ratio] 34.5 kg/m2 Ray Cedeñom DO Work Phone: [facility] 06-13-2024 14:19-0400 Body temperature 97.9 [degF] Ray Cedeñom DO Work Phone: [facility] 06-13-2024 14:19-0400 Body weight 85.55 kg Ray Cedeñom DO Work Phone: [facility] 06-12-2024 14:18-0400 Body height 160 cm Renee Blount ROTARY DRYER OPERATOR Work Phone: [facility] 06-12-2024 14:18-0400 Body mass index (BMI) [Ratio] 32.91 kg/m2 Renee Maryz ROTARY DRYER OPERATOR Work Phone: [facility] 06-12-2024 14:18-0400 Body temperature 97.2 [degF] Renee Maryz ROTARY DRYER OPERATOR Work Phone: [facility] 06-12-2024 14:18-0400 Body weight 84.28 kg Renee Blount ROTARY DRYER OPERATOR Work Phone: [facility] 06-12-2024 14:18-0400 Diastolic blood pressure 76 mm[Hg] Renee Blount ROTARY DRYER OPERATOR Work Phone: [facility] 06-12-2024 14:18-0400 Heart rate 105 /min Renee Blount ROTARY DRYER OPERATOR Work Phone: [facility] 06-12-2024 14:18-0400 Respiratory rate 18 /min Renee Blount ROTARY DRYER OPERATOR Work Phone: [facility] 06-12-2024 14:18-0400 SaO2% (BldA) [Mass fraction] 93 % Renee Blount ROTARY DRYER OPERATOR Work Phone: [facility] 06-12-2024 14:18-0400 Systolic blood pressure 130 mm[Hg] Renee Blount ROTARY DRYER OPERATOR Work Phone: [facility] 05-02-2024 09:01-0400 Body height 157.5 cm Ray Mello DO Work Phone: [facility] 05-02-2024 09:01-0400 Body mass index (BMI) [Ratio] 33.87 kg/m2 Ray Mello DO Work Phone: [facility] 05-02-2024 09:01-0400 Body temperature 97.59 [degF] Ray Mello DO Work Phone: [facility] 05-02-2024 09:01-0400 Body weight 84.01 kg Ray Mello DO Work Phone: [facility] 04-10-2024 15:09-0400 Body height 157.5 cm Oleg LUNDBERG Work Phone: [facility] 04-10-2024 15:09-0400 Body mass index (BMI) [Ratio] 33.65 kg/m2 Oleg LUNDBERG Work Phone: [facility] 04-10-2024 15:09-0400 Body temperature 96.91 [degF] Oleg Matthewner PA Work Phone: [facility] 04-10-2024 15:09-0400 Body weight 83.46 kg Oleg Matthewner PA Work Phone: [facility] 04-10-2024 15:09-0400 Diastolic blood pressure 72 mm[Hg] Oleg Bryson PA Work Phone: [facility] 04-10-2024 15:09-0400 Heart rate 96 /min Oleg Bryson PA Work Phone: [facility] 04-10-2024 15:09-0400 Respiratory rate 20 /min Oleg Bryson PA Work Phone: [facility] 04-10-2024 15:09-0400 SaO2% (BldA) [Mass fraction] 96 % Oleg Bryson PA Work Phone: [facility] 04-10-2024 15:09-0400 Systolic blood pressure 144 mm[Hg] Oleg Matthewner PA Work Phone: [facility] 03-28-2024 10:31-0400 Body height 157.5 cm Ray Cedeñom DO Work Phone: [facility] 03-28-2024 10:31-0400 Body mass index (BMI) [Ratio] 34.57 kg/m2 Ray Riehm DO Work Phone: [facility] 03-28-2024 10:31-0400 Body weight 85.73 kg Ray Philehm DO Work Phone: [facility] 02-08-2024 09:52-0400 Body height 157.5 cm Ray Riehm DO Work Phone: [facility] 02-08-2024 09:52-0400 Body mass index (BMI) [Ratio] 34.57 kg/m2 Ray Riehm DO Work Phone: [facility] 02-08-2024 09:52-0400 Body temperature 97.3 [degF] Ray Mello DO Work Phone: [facility] 02-08-2024 09:52-0400 Body weight 85.73 kg Ray Mello DO Work Phone: [facility] Encounters Encounter Date Encounter Type Care Provider Facility Start: 07-18-2024 End: 07-18-2024 Bamboo flowsheet Renee Aichholz ROTARY DRYER OPERATOR Work Phone: [facility] Start: 07-18-2024 End: 07-18-2024 Bamboo flowsheet Renee Aichholz ROTARY DRYER OPERATOR Work Phone: [facility] Start: 07-18-2024 End: 07-18-2024 Office outpatient visit 25 minutes Renee Aichhoracioz ROTARY DRYER OPERATOR Work Phone: [facility] Comment on above: Type 2 diabetes ash itus without complication, with long-term current use of insulin (CMS/[facility]) (Primary Dx); Primary hypertension (CMS/[facility]); Obesity (BMI 30-39.9); Tobacco user; Chronic obstructive pulmonary disease, unspecified COPD type (CMS/HCC); Asthma, unspecified asthma severity, unspecified whether complicated, unspecified whether persistent (CMS/HCC) Start: 07-05-2024 End: 07-05-2024 Refill Renee Aichholz ROTARY DRYER OPERATOR Work Phone: [facility] Comment on above: Type 2 diabetes ash itus without complication, with long-term current use of insulin (CMS/HCC) Start: 06-13-2024 ambulatory RAY MELLO [facility] Start: 06-13-2024 End: 06-13-2024 Office outpatient visit 25 minutes Ray Mello DO Work Phone: [facility] Comment on above: Acute pain of left k nee (Primary Dx) Start: 06-12-2024 End: 06-12-2024 Bamboo flowsheet Renee Aichholz ROTARY DRYER OPERATOR Work Phone: [facility] Start: 06-12-2024 End: 06-12-2024 Bamboo flowsheet Renee Blount NP Work Phone: [facility] Start: 06-12-2024 End: 06-12-2024 Office outpatient visit 25 minutes Renee Blount NP Work Phone: [facility] Comment on above: Type 2 diabetes ash itus without complication, with long-term current use of insulin (CMS/HCC) (Primary Dx); Encounter for screening mammogram for malignant neoplasm of breast; Episode of recurrent major depressive disorder, unspecified depression episode severity (CMS/HCC); Chronic obstructive pulmonary disease, unspecified COPD type (CMS/HCC); Asthma, unspecified asthma severity, unspecified whether complicated, unspecified whether persistent (CMS/HCC); Mixed hyperlipidemia (CMS/HCC); Tobacco user; Primary hypertension (CMS/HCC); Insomnia, unspecified type; Obesity (BMI 30-39.9) Start: 06-07-2024 [facility] Start: 06-02-2024 ambulatory RENEE MINE [facility] Start: 06-02-2024 End: 06-02-2024 Subsequent hospital visit by physician Ray Mello DO Work Phone: [facility] Comment on above: Arrived Start: 05-28-2024 End: 05-28-2024 Orders Only Renee Blount NP Work Phone: [facility] Comment on above: Primary hypertension (CMS/HCC) (Primary Dx); Type 2 diabetes mellitus without complication, with long-term current use of insulin (CMS/HCC); Mixed hyperlipidemia (CMS/HCC); Tobacco user; Obesity (BMI 30-39.9) Start: 05-02-2024 End: 05-02-2024 Office outpatient visit 25 minutes Ray Mello DO Work Phone: [facility] Comment on above: Nondisplaced fractur e of fifth metatarsal bone, left foot, initial encounter for closed fracture (Primary Dx); Left foot pain; Neck pain; Arm paresthesia, right Start: 05-02-2024 End: 05-02-2024 Subsequent hospital visit by physician Ray Mello DO Work Phone: [facility] Start: 05-02-2024 ambulatory RAY Quinterosta [facility] Start: 04-10-2024 End: 04-10-2024 Office outpatient visit 15 minutes lOeg LUNDBERG Work Phone: [facility] Comment on above: Neck muscle spasm (P rimary Dx) Start: 04-10-2024 [facility] Start: 03-28-2024 ambulatory RAY Estevez [facility] Start: 03-28-2024 End: 03-28-2024 Office outpatient visit 25 minutes Ray Mello DO Work Phone: [facility] Comment on above: Left foot pain (Prim inna Dx) Start: 03-28-2024 End: 03-28-2024 Subsequent hospital visit by physician Ray Mello DO Work Phone: [facility] Start: 02-08-2024 End: 02-08-2024 Office outpatient new 45 minutes Ray Mello DO Work Phone: [facility] Comment on above: Left foot pain (Prim inna Dx); Nondisplaced fracture of fifth metatarsal bone, left foot, initial encounter for closed fracture Start: 02-08-2024 End: 02-08-2024 Subsequent hospital visit by physician Ray Mello DO Work Phone: [facility] Start: 02-08-2024 ambulatory RAY Estevez [facility] Start: 01-09-2024 End: 01-09-2024 ambulatory SHAIKH NIURKA Not Available Start: 10-17-2023 ambulatory [facility] Start: 10-17-2023 Encounter for other specified special examinations [facility] Start: 09-28-2023 Refill Renee Shannenramanakathy ROTARY DRYER OPERATOR Work Phone: [facility] Comment on above: Type 2 diabetes ash itus without complication, with long-term current use of insulin ([facility]) (Primary Dx); Episode of recurrent major depressive disorder, unspecified depression episode severity ([facility]); Chronic obstructive pulmonary disease, unspecified COPD type ([facility]); Asthma, unspecified asthma severity, unspecified whether complicated, unspecified whether persistent ([facility]) Start: 04-13-2022 End: 04-13-2022 ambulatory [employer] RENEE HURTADOKATHY Facility:[facility] Start: 03-10-2022 End: 03-11-2022 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 Start: 06-07-2025 Lipid panel LIPIDS [facility] Start: 06-07-2025 Urine screening for protein [facility] Start: 02-18-2025 Influenza vaccination Influenza Vacc ine (#1) [facility] Comment on above: Postponed from 04/22 (Patient Refused) Start: 02-17-2025 Glaucoma screening Diabetes: R etinopathy Screening [facility] Start: 12-06-2024 Hemoglobin A1c measurement HBA1C TEST [facility] Start: 09-07-2024 Hemoglobin A1c measurement Diabetes: Hemoglobin A1C [facility] Start: 08-06-2024 End: 08-06-2024 Patient encounter procedure 08/06/2024 10:30 AM EST Office Visit [facility] [address] [place], [place] [id number] Ray Mello DO [address] [place] [id number] [facility] Start: 07-18-2024 End: 07-18-2025 Basic metabolic 1998 panel - Serum or Plasma Basic metabolic panel Lab Routine Type 2 diabetes mellitus without complication, with long-term current use of insulin (CMS/HCC) Expected: 07/18/2024 (Approximate), Expires: 07/18/2025 [facility] [employer] Work Phone: Comment on above: Expected: 07/18/2024 (Approximate), Expires: 07/18/2025 Start: 07-18-2024 End: 07-18-2024 Patient encounter procedure 07/18/2024 9:20 AM EST Office Visit [facility] [address] [place] [id number] Renee Blount NP [address] [place] [id number] [facility] Start: 06-12-2024 End: 08-12-2025 MG Breast - bilateral Screening Bilateral screening mammogram Imaging Routine Encounter for screening mammogram for malignant neoplasm of breast Expected: 06/12/2024 (Approximate), Expires: 08/12/2025 [facility] [employer] Work Phone: Comment on above: Expected: 06/12/2024 (Approximate), Expires: 08/12/2025 Start: 05-28-2024 End: 05-28-2025 CBC W Auto Differential panel - Blood CBC and differential Lab Routine Tobacco user Expected: 05/28/2024 (Approximate), Expires: 05/28/2025 [facility] [employer] Work Phone: Comment on above: Expected: 05/28/2024 (Approximate), Expires: 05/28/2025 Start: 05-28-2024 End: 05-28-2025 Comprehensive metabolic 2000 panel - Serum or Plasma Comprehensive metabolic panel Lab Routine Primary hypertension (CMS/HCC) Type 2 diabetes mellitus without complication, with long-term current use of insulin (CMS/HCC) Mixed hyperlipidemia (CMS/HCC) Expected: 05/28/2024 (Approximate), Expires: 05/28/2025 [facility] Comment on above: Expected: 05/28/2024 (Approximate), Expires: 05/28/2025 Start: 05-28-2024 End: 05-28-2025 Hemoglobin A1c/Hemoglobin.total in Blood Hemoglobin A1c Lab Routine Type 2 diabetes mellitus without complication, with long-term current use of insulin ([facility]) Expected: 05/28/2024 (Approximate), Expires: 05/28/2025 [facility] Comment on above: Expected: 05/28/2024 (Approximate), Expires: 05/28/2025 Start: 05-28-2024 End: 05-28-2025 Lipid 1996 panel - Serum or Plasma Lipid panel Lab Routine Mixed hyperlipidemia ([facility]) Expected: 05/28/2024 (Approximate), Expires: 05/28/2025 [facility] Comment on above: Expected: 05/28/2024 (Approximate), Expires: 05/28/2025 Start: 05-28-2024 End: 05-28-2025 Microalbumin/Creatinine panel in random Urine Microalbumin / creatinine, urine ratio Lab Routine Primary hypertension ([facility]) Type 2 diabetes mellitus without complication, with long-term current use of insulin ([facility]) Expected: 05/28/2024 (Approximate), Expires: 05/28/2025 [facility] Comment on above: Expected: 05/28/2024 (Approximate), Expires: 05/28/2025 Start: 05-28-2024 End: 05-28-2025 Thyrotropin [Units/volume] in Serum or Plasma TSH Lab Routine Obesity (BMI 30-39.9) Expected: 05/28/2024 (Approximate), Expires: 05/28/2025 [facility] Comment on above: Expected: 05/28/2024 (Approximate), Expires: 05/28/2025 Start: 05-28-2024 End: 05-28-2025 Thyroxine (T4) free [Mass/volume] in Serum or Plasma T4, free Lab Routine Obesity (BMI 30-39.9) Expected: 05/28/2024 (Approximate), Expires: 05/28/2025 [facility] Comment on above: Expected: 05/28/2024 (Approximate), Expires: 05/28/2025 Start: 05-28-2024 End: 05-28-2025 Urinalysis complete panel - Urine Urinalysis with reflex microscopic (clean catch) Lab Routine Primary hypertension (CMS/HCC) Type 2 diabetes mellitus without complication, with long-term current use of insulin (CMS/HCC) Expected: 05/28/2024 (Approximate), Expires: 05/28/2025 [facility] Comment on above: Expected: 05/28/2024 (Approximate), Expires: 05/28/2025 Start: 05-11-2024 Screening for malign ant neoplasm of breast [facility] [facility] Start: 05-02-2024 End: 05-02-2025 MR Foot - left WO contrast MRI FOOT LEFT WITHOUT CONTRAST Imaging Routine Nondisplaced fracture of fifth metatarsal bone, left foot, initial encounter for closed fracture Expected: 05/02/2024, Expires: 05/02/2025 [facility] Comment on above: Expected: 05/02/2024 , Expires: 05/02/2025 Start: 05-02-2024 End: 05-29-2024 XR Foot - left 3 Views [facility] Comment on above: Expected: 05/02/2024 , Expires: 05/29/2024 1 Occurrences starti ng 05/02/2024 until 05/02/2024 Start: 05-02-2024 End: 05-02-2024 Patient encounter procedure [facility] Start: 04-22-2024 COVID-19 VACCINE ( season) COVID-19 VACCINE () [facility] Start: 04-22-2024 Influenza vaccination A [facility] Start: 04-16-2024 Hemoglobin A1c measurement HBA1C TEST [facility] Start: 04-14-2024 Urine screening for protein Diabetes: Urine Protein Screening [facility] Start: 03-29-2024 Lipid panel LIPIDS [facility] Start: 03-07-2024 End: 03-07-2024 Patient encounter procedure 03/07/2024 8:15 AM EDT Office Visit [facility] [address] [place] [id number] Ray Mello, DO [address] [place] [address] [facility] Start: 02-08-2024 End: 03-06-2024 XR Foot - left 3 Views [facility] Comment on above: Expected: 02/08/2024 , Expires: 03/06/2024 1 Occurrences starti ng 02/08/2024 until 02/08/2024 Start: 01-15-2024 Hemoglobin A1c measurement Diabetes: Hemoglobin A1C [facility] Start: 09-28-2023 End: 09-28-2024 Basic metabolic 1998 panel - Serum or Plasma Basic metabolic panel Lab Routine Type 2 diabetes mellitus without complication, with long-term current use of insulin (CMS/HCC) Expected: 09/28/2023 (Approximate), Expires: 09/28/2024 [facility] Work Phone: Comment on above: Expected: 09/28/2023 (Approximate), Expires: 09/28/2024 Start: 09-28-2023 End: 09-28-2024 Hemoglobin A1c measurement Hemoglobin A1c Lab Routine Type 2 diabetes mellitus without complication, with long-term current use of insulin (CMS/HCC) Expected: 09/28/2023 (Approximate), Expires: 09/28/2024 [facility] Comment on above: Expected: 09/28/2023 (Approximate), Expires: 09/28/2024 Start: 07-14-2023 Hemoglobin A1c measurement Diabetes: Hemoglobin A1C [facility] Start: 04-22-2023 COVID-19 VACCINE ( season) COVID-19 VACCINE ( season) [facility] Start: 04-22-2023 Influenza vaccination Influenza Vacc ine (#1) [facility] Start: 11-10-2018 Screening for malign ant neoplasm of cervix [facility] Start: 2018 Screening for malign ant neoplasm of lung LUNG CANCER SCREENING [facility] Start: 2018 Zoster vaccine hzv l oren for subcutaneous use ZOSTER (SHINGLES) VACCINE (1 of 2) [facility] Start: 2013 Screening for malign ant neoplasm of colon COLORECTAL CANCER SCREENING DISCUSSION [facility] Start: 2008 Screening for malign ant neoplasm of breast MAMMOGRAM SCREENING DISCUSSION [facility] Start: 1998 Screening for malign ant neoplasm of cervix HPV/Cotest [facility] Start: 1989 Screening for malign ant neoplasm of cervix CERVICAL CANCER SCREENING DISCUSSION [facility] Start: 1987 Hepatitis B vaccination HEP B VACCINE (1 of 3 - 19+ 3-dose series) [facility] Start: 1987 Third diphtheria, tetanus and acellular pertussis (DTaP) vaccination TDAP (ADULT) [facility] Start: 1983 HIV screening HIV SCREENING DISCUSSI ON [facility] Start: 1974 PNEUMOCOCCAL VACCINE SERIES (1 of 2 - PCV) PNEUMOCOCCAL VACCINE SERIES (1 of 2 - PCV) [facility] Start: 1968 Diabetic foot examination DIABETIC FOOT EXAM [facility] Start: 1968 Glaucoma screening EYE EXAM [facility] Start: 1968 Hepatitis C screening HEPATITI S C VIRUS SCREENING [facility] Start: 1968 Tetanus vaccination TETANUS [facility] Start: 1968 Urine screening for protein URINE MICROALBUMIN TEST [facility] End: 06-02-2024 MR Foot - left WO contrast [facility] Comment on above: 1 Occurrences starti ng 06/02/2024 until 06/02/2024 XR Foot - left 3 Views XR FOOT L EFT 3+ VIEWS Imaging Routine Left foot pain 03/28/2024 10:46 AM EDT [facility] Immunizations Immunization Date Immunization Notes Care Provider Smith olmstead 06-12-2024 Influenza, injectabl e, Madin [place] Canine Kidney, preservative free, quadrivalent Renee Blount ROTARY DRYER OPERATOR Work Phone: [facility] Healthcare Payers Date Payer Category Payer Medicaid [id number] 2020 Medicaid (Managed Care) [facility] MEDICAID [id number] 2020 Unknown [facility] [id number] 2020-Present [address] [place] [address] [id number] 1968 Unknown [id number] [id number]. 593 1968 Unknown [id number] 2.16.840.1.673098.3.579.2. 593 1968 Unknown [id number] 2.16.840.1.733929.3.579.2. 1259 1968 Unknown [id number] 2.16.840.1.118795.3.579.2. 983 1968 Unknown [id number] 2.16.840.1.882434.3.579.2. 983 1968 Unknown [id number] 2.16.840.1.557328.3.579.2. 983 1968 Unknown [id number] 2.16.840.1.982528.3.579.2. 983 1968 Unknown [id number] 2.16.840.1.020051.3.579.2. 983 1968 Unknown [id number] 2.16.840.1.388085.3.579.2. 983 1968 Unknown [id number] 2.16.840.1.301493.3.579.2. 983 1968 Unknown [id number] 2.16.840.1.926624.3.579.2. 983 1968 Unknown [id number] 2.16.840.1.253358.3.579.2. 983 1968 Unknown [id number] 2.16.840.1.008332.3.579.2. 983 1968 Unknown [id number] 2.16.840.1.653702.3.579.2. 983 1968 Unknown [id number] 2.16.840.1.045539.3.579.2. 983 1968 Unknown [id number] [id number]. 983 1959 Unknown [id number] Social History Date Type Detail Facility Start: 07-20-2023 End: 01-09-2024 Tobacco smoking status ARIS Smokes tobacco daily [facility] Start: 08-22-1993 History of tobacco use Cigarette Smo ker [facility] Start: 07-20-2023 End: 06-11-2024 Cigarettes smoked current (pack per day) - Reported 1 [facility] Start: 07-20-2023 End: 06-11-2024 Tobacco use panel [facility] Start: 1970 Sex Assigned At Not on file N [facility] Start: 01-09-2024 End: 02-08-2024 Tobacco use and exposure Smokeless tobacco non-user [facility] Start: 02-08-2024 End: 06-13-2024 Alcoholic beverage intake Ex-drinker (finding) [facility] History of tobacco use Passive smoker [facility] Start: 01-09-2024 End: 07-18-2024 Alcoholic beverage intake Lifetime non-drinker (finding) [facility] How often do you nee d to have someone help you when you read instructions, pamphlets, or other written material from your doctor or pharmacy [SILS] Never [facility] Do you belong to any clubs or organizations such as advent groups, unions, fraternal or athletic groups, or school groups? No [facility] Are you now , , , , never or living with a partner? [facility] How often to you hav e a drink containing alcohol? Never [facility] How hard is it for y ou to pay for the very basics like food, housing, medical care, and heating Not very hard [facility] Do you feel stress - tense, restless, nervous, or anxious, or unable to sleep at night because your mind is troubled all the time - these days [OSQ] Rather much [facility] (I/We) worried wheth er (my/our) food would run out before (I/we) got money to buy more. Sometimes true [facility] Medical Equipment Procedure Code Equipment Code Equipment Original Text Equi pment Identifier Dates [id number] 1 Lancet in the morning and 1 Lancet before bedtime. [id number] Clinical Notes 02-08-2024 to 07-18-2024 Renee Blount NP - 07/18/2024 10:01 AM Mayra Blount, IMER - 07/18/2024 9:49 AM Mayra Blount NP - 07/18/2024 9:49 AM Mayra Blount, IMER - 07/18/2024 9:20 AM ESTPatient Instructions Note Date & Type Note Facility 07-18-2024 History of Presen t illness Narrative Associated Problem(s): Microalbuminuria Tight blood sugar control Associated Problem(s): Asthma (CMS/HCC) Stable, continue current meds Quit smoking Associated Problem(s): COPD (chronic obstructive pulmonary disease) (CMS/HCC) Continue ICS/LABA Recommend quitting smoking Images from the original note were not included. Janice Nugent is a 53 y.o. female presents with chief complaint of Diabetes HPI: Dexcom reads: 30 day Average read 108, GMI 5.9% 3% high, 88% in range, 6% low, and 3% very low 14 day: average 95, 0% very high, 2 % high, 72% in range, 14% low, and 12 % very low 7 day: average is 69, 43% in range, 30% low, and 27% very low 3 day: average is 66, 37% in range, 33% low, and 30% very low Diabetes She presents for her follow-up diabetic visit. She has type 2 diabetes mellitus. Her disease course has been improving. There are no hypoglycemic associated symptoms. Pertinent negatives for hypoglycemia include no dizziness, headaches, nervousness/anxiousness, seizures or tremors. Pertinent negatives for diabetes include no blurred vision, no chest pain, no fatigue, no foot paresthesias, no polydipsia, no polyphagia, no polyuria and no visual change. There are no hypoglycemic complications. Symptoms are improving. There are no diabetic complications. Pertinent negatives for diabetic complications include no nephropathy or peripheral neuropathy. Risk factors for coronary artery disease include diabetes mellitus, dyslipidemia, hypertension, obesity, sedentary lifestyle and tobacco exposure. Current diabetic treatment includes oral agent (dual therapy) and insulin injections. She is compliant with treatment all of the time. An JORGE inhibitor/angiotensin II receptor obie is being taken. Hypertension This is a chronic problem. The current episode started more than 1 year ago. The problem has been gradually improving since onset. The problem is controlled. Pertinent negatives include no blurred vision, chest pain, headaches, neck pain, orthopnea, palpitations, peripheral edema or shortness of breath. There are no associated agents to hypertension. Risk factors for coronary artery disease include diabetes mellitus, dyslipidemia, obesity, sedentary lifestyle and smoking/tobacco exposure. Past treatments include JORGE inhibitors. The current treatment provides significant improvement. There are no compliance problems. SUBJECTIVE: MEDICATIONS: Current Outpatient Medications Medication Instructions albuterol HFA 90 mcg/act inhaler 2 puffs, Inhalation, Every 6 hours PRN albuterol 2.5 mg, Every 6 hours PRN Alcohol Swabs pads 1 Pad, Does not apply, 2 times daily aspirin 81 mg, Oral, Daily atorvastatin (LIPITOR) 40 mg, Oral, Nightly Continuous Glucose Global Professional (Dexcom G7 Global Professional) device 1 each, Does not apply, Daily Continuous Glucose Sensor (Dexcom G7 Sensor) misc 1 each, Does not apply, Daily dapagliflozin (FARXIGA) 10 mg, Oral, Daily FLUoxetine (PROZAC) 20 mg, Oral, Daily Fluticasone-Salmeterol (Advair Diskus) 250-50 MCG/ACT aerosol powder 1 Inhalation, Inhalation, 2 times daily, Rinse mouth after use insulin glargine (LANTUS) 30 Units, Subcutaneous, Nightly Insulin Pen Needle (pen needle 11/04 ) 31G x 5 mm misc 1 each, Daily Lancets 33G misc 1 Lancet, 2 times daily lisinopril 20 mg, Oral, Daily meloxicam (MOBIC) 7.5 mg, Daily RT metFORMIN (GLUCOPHAGE) 1,000 mg, Oral, 2 times daily with meals montelukast (SINGULAIR) 10 mg, Oral, Nightly traZODone (DESYREL) 150 mg, Oral, Nightly ALLERGIES: Allergies Allergen Reactions Wellbutrin [Bupropion] REVIEW OF SYMPTOMS: Review of Systems Constitutional: Negative for appetite change, chills, fatigue and fever. HENT: Negative for congestion, ear pain and sore throat. Eyes: Negative for blurred vision, pain, discharge, redness and visual disturbance. Respiratory: Positive for cough and wheezing. Negative for shortness of breath. Cardiovascular: Negative for chest pain, palpitations, orthopnea and leg swelling. Gastrointestinal: Negative for abdominal pain, blood in stool, constipation, diarrhea, nausea and vomiting. Genitourinary: Negative for difficulty urinating, dysuria and frequency. Musculoskeletal: Negative for arthralgias, back pain, joint swelling, myalgias and neck pain. Skin: Negative for rash and wound. Neurological: Negative for dizziness, tremors, seizures, syncope and headaches. Psychiatric/Behavioral: Negative for behavioral problems, self-injury and suicidal ideas. The patient is not nervous/anxious. Hematological: Does not bruise/bleed easily. Endocrine: Negative for polydipsia, polyphagia and polyuria. Allergic/Immunologic: Negative for environmental allergies and food allergies. PAST MEDICAL HISTORY Past Medical History: Diagnosis Date Asthma ([facility]) 09/28/2023 COPD (chronic obstructive pulmonary disease) ([facility]) 09/28/2023 Depression ([facility]) 09/28/2023 Gastritis GERD (gastroesophageal reflux disease) 09/28/2023 History of hernia repair HTN (hypertension) ([facility]) 09/28/2023 Hyperlipidemia ([facility]) 09/28/2023 Hyponatremia Insomnia 09/28/2023 Non compliance w medication regimen Non-compliance RUQ pain Tobacco user 09/28/2023 Type 2 diabetes mellitus without complication, with long-term current use of insulin ([facility]) 07/27/2023 Past Surgical History: Procedure Laterality Date APPENDECTOMY 1989 SECTION, LOW TRANSVERSE COLECTOMY 1990 HERNIA REPAIR OOPHORECTOMY Right family history includes Coronary artery disease in her father; Deep vein thrombosis in her mother; Diabetes in an other family member; Hypertension in an other family member. OBJECTIVE: Visit Vitals BP 104/78 (BP Location: Left arm, Patient Position: Sitting, BP Cuff Size: Adult long) Pulse 88 Temp 98.6 F (Temporal) Resp 18 Ht 5' 3 Wt 175 lb 12.8 oz SpO2 93% BMI 31.14 kg/m Smoking Status Every Day BSA 1.88 m Physical Exam Vitals and nursing note reviewed. Constitutional: General: She is not in acute distress. Appearance: Normal appearance. She is obese. HENT: Head: Normocephalic and atraumatic. Right Ear: External ear normal. Left Ear: External ear normal. Nose: Nose normal. Mouth/Throat: Mouth: Mucous membranes are moist. Eyes: Extraocular Movements: Extraocular movements intact. Conjunctiva/sclera: Conjunctivae normal. Cardiovascular: Rate and Rhythm: Normal rate and regular rhythm. Pulses: Normal pulses. Heart sounds: Normal heart sounds. Pulmonary: Effort: Pulmonary effort is normal. Breath sounds: Normal breath sounds. No wheezing or rales. Abdominal: General: Bowel sounds are normal. There is no distension. Palpations: Abdomen is soft. There is no mass. Tenderness: There is no abdominal tenderness. Musculoskeletal: General: Normal range of motion. Cervical back: Normal range of motion and neck supple. Right lower leg: No edema. Left lower leg: No edema. Skin: General: Skin is warm and dry. Capillary Refill: Capillary refill takes 2 to 3 seconds. Findings: No rash. Neurological: General: No focal deficit present. Mental Status: She is alert and oriented to person, place, and time. Psychiatric: Mood and Affect: Mood normal. Behavior: Behavior normal. Thought Content: Thought content normal. Judgment: Judgment normal. ASSESSMENT AND PLAN: Follow up in about 6 weeks (around 08/29/2024) for Recheck. Problem List Items Addressed This Visit Type 2 diabetes mellitus without complication, with long-term current use of insulin ([facility]) - Primary Restarted meds at last visit, is compliant with use of dexcom and meds A1c test was 10.7 in 06/14 Check blood sugars daily, notify if <70 or >200. Take medications (pills or insulin) as directed. Monitor for s/s of hypoglycemia (sweaty, dizziness, nausea, vomiting, or shakiness). Watch for increase in thirst, urination, or appetite. Inspect feet frequently monitoring for open wounds , and also recommend yearly eye exam. Pt should attempt to remain as physically active as chronic conditions allow, as well as trying to follow a diet low in carbohydrates, and simple sugars. Lower insulin to 30 units daily Relevant Medications Continuous Glucose Sensor (Dexcom G7 Sensor) misc insulin glargine (Lantus) 100 UNIT/ML injection aspirin 81 MG chewable tablet Other Relevant Orders Basic metabolic panel HTN (hypertension) ([facility]) Is compliant with meds now, labs are stable Please check blood pressure daily and record DASH diet Limit caffeine Take medication as directed Contact office if chest pain, pressure, dizziness, shortness of breath, swelling legs Recommend slow position changes Relevant Medications aspirin 81 MG chewable tablet COPD (chronic obstructive pulmonary disease) ([facility]) Continue ICS/LABA Recommend quitting smoking Relevant Medications Fluticasone-Salmeterol (Advair Diskus) 250-50 MCG/ACT aerosol powder Asthma ([facility]) Stable, continue current meds Quit smoking Relevant Medications Fluticasone-Salmeterol (Advair Diskus) 250-50 MCG/ACT aerosol powder Tobacco user The patient has been advised of the risks of continued smoking: stroke, [place], all forms of cancer, lung disease, and . Options for quitting smoking include: cold turkey, hypnosis, acupuncture, nicotine replacement meds (gum, lozenges, and patches), Buproprion, and Varenicline. At this time pt is encouraged to evaluate their goals for wanting to quit smoking, and reach out to provider when ready to start this process Obesity (BMI 30-39.9) Discussed with patient their BMI (actual, verses recommended). We have also discussed lifestyle modifications: attempts to perform physical activity as chronic conditions allow, also to monitor dietary intake: increasing protein/fruits/veggies and lowering carb intake (unless contraindicated). Limit sodas, juices, and sugary drinks. Also discussed oral medications that can be utilized for weight loss, as well as surgical options for weight loss. Associated Problem(s): Tobacco user The patient has been advised of the risks of continued smoking: stroke, [place], all forms of cancer, lung disease, and . Options for quitting smoking include: cold turkey, hypnosis, acupuncture, nicotine replacement meds (gum, lozenges, and patches), Buproprion, and Varenicline. At this time pt is encouraged to evaluate their goals for wanting to quit smoking, and reach out to provider when ready to start this process Associated Problem(s): Obesity (BMI 30-39.9) Discussed with patient their BMI (actual, verses recommended). We have also discussed lifestyle modifications: attempts to perform physical activity as chronic conditions allow, also to monitor dietary intake: increasing protein/fruits/veggies and lowering carb intake (unless contraindicated). Limit sodas, juices, and sugary drinks. Also discussed oral medications that can be utilized for weight loss, as well as surgical options for weight loss. Associated Problem(s): Type 2 diabetes mellitus without complication, with long-term current use of insulin ([facility]) Restarted meds at last visit, is compliant with use of dexcom and meds A1c test was 10.7 in 06/14 Check blood sugars daily, notify if <70 or >200. Take medications (pills or insulin) as directed. Monitor for s/s of hypoglycemia (sweaty, dizziness, nausea, vomiting, or shakiness). Watch for increase in thirst, urination, or appetite. Inspect feet frequently monitoring for open wounds , and also recommend yearly eye exam. Pt should attempt to remain as physically active as chronic conditions allow, as well as trying to follow a diet low in carbohydrates, and simple sugars. Lower insulin to 30 units daily Associated Problem(s): HTN (hypertension) ([facility]) Is compliant with meds now, labs are stable Please check blood pressure daily and record DASH diet Limit caffeine Take medication as directed Contact office if chest pain, pressure, dizziness, shortness of breath, swelling legs Recommend slow position changes documented in this encounter [facility] 07-18-2024 Instructions Renee Blount NP - 07/18/2024 9:20 AM EST Lower dose of insulin to 30 units daily Labs need checked Get mammogram Schedule PAP Also check with pharmacy about getting a pneumonia shot documented in this encounter [facility] 06-13-2024 History of Presen t illness Narrative Chief Complaint Patient presents with Left Foot - Pain Follow-up Pain Radiation To: none Pain Duration: 01/01/2024 Pain Frequency: constant Pain Quality: burning, stabbing Factors That Aggravate Pain: (Walking & shoes) Factors That Relieve Pain: cold Here for office visit and re-evaluation of left foot pain. Worsening symptoms at times. IMPRESSION/PLAN: Recent MRI results reviewed and findings discussed. 1. Comminuted incompletely healed fifth metatarsal base fracture. Fracture margins appear partially corticated and potentially reflect nonunion. 2. Mild mid and hindfoot osteoarthritis. Has tried and failed several conservative measures. Medication management: Continue current medications Follow up: 6-8 weeks for office visit and re-evaluation Visit Vitals Temp 97.9 F (36.6 C) (Temporal) Ht 1.575 m (5' 2 ) Wt 85.5 kg (188 lb 9.6 oz) BMI 34.50 kg/m *Time components listed in minutes below. This data may or may not be needed for insurance reimbursement purposes. Reviewing clinical note(s) from previous visit/ER/urgent care/PCP/other specialists 4 Review of medical history 4 Review of medical customer service representative or boxing trainer note 4 Independently obtain and review medical history and history of present illness with patient 4 Other counseling and coordination of care 7 Updating patient chart, documentation of clinical encounter and signing of orders 7 *Portions of this note may have been created with [employer], other software, or a scribe, which leads to grammatical and typographical errors which are not media sales representative of the intent with my spoken words. Chief Complaint Patient presents with Left Foot - Pain Follow-up Pain Radiation To: none Pain Duration: 01/01/2024 Pain Frequency: constant Pain Quality: burning, stabbing Factors That Aggravate Pain: (Walking & shoes) Factors That Relieve Pain: cold Here for office visit and re-evaluation of left foot pain. Worsening symptoms at times. Had conservative treatment including initial immobilization. Had 6+ weeks of PT/directed HEP in last 12 weeks. Pain despite several analgesics. Persistent pain at fracture site. IMPRESSION/PLAN: Recent MRI results reviewed and findings discussed. 1. Comminuted incompletely healed fifth metatarsal base fracture. Fracture margins appear partially corticated and potentially reflect nonunion. 2. Mild mid and hindfoot osteoarthritis. 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 Medication management: Continue current medications Has discussed smoking cessation with PCP Needs bone stimulator approval from insurance for high risk fracture non-union with failed conservative treatment. Will submit. Follow up: 6-8 weeks for office visit and re-evaluation, repeat xray at that time. Visit Vitals Temp 97.9 F (36.6 C) (Temporal) Ht 1.575 m (5' 2 ) Wt 85.5 kg (188 lb 9.6 oz) BMI 34.50 kg/m *Time components listed in minutes below. This data may or may not be needed for insurance reimbursement purposes. Reviewing clinical note(s) from previous visit/ER/urgent care/PCP/other specialists 4 Review of medical history 4 Review of medical customer service representative or boxing trainer note 4 Independently obtain and review medical history and history of present illness with patient 4 Other counseling and coordination of care 7 Updating patient chart, documentation of clinical encounter and signing of orders 7 *Portions of this note may have been created with [employer], other software, or a scribe, which leads to grammatical and typographical errors which are not media sales representative of the intent with my spoken words. Clinical faculty i on call medical assistant/AT/MA was acting as a scribe today for this note. I have performed all essential components of the history, and physical exam. I have confirmed the diagnosis and developed a plan of care at this visit. I have reviewed the note following the visit and have made edits as appropriate to my evaluation and plan of care. Ray Mello DO documented in this encounter [facility] 06-12-2024 History of Presen t illness Narrative Associated Problem(s): Hyperlipidemia (CMS/HCC) Restart statin Associated Problem(s): Tobacco user The patient has been advised of the risks of continued smoking: stroke, KS, all forms of cancer, lung disease, and . Options for quitting smoking include: cold turkey, hypnosis, acupuncture, nicotine replacement meds (gum, lozenges, and patches), Buproprion, and Varenicline. At this time pt is encouraged to evaluate their goals for wanting to quit smoking, and reach out to provider when ready to start this process Associated Problem(s): Type 2 diabetes mellitus without complication, with long-term current use of insulin (CMS/HCC) Will trial DEXCOM 7 system Restart meds, metformin daily for 5 days, then increase to 1 pill twice a day Associated Problem(s): HTN (hypertension) ([facility]) Stable, out of meds for some time Restart BP pill Associated Problem(s): Asthma ([facility]) Stable, continue current meds Quit smoking Associated Problem(s): COPD (chronic obstructive pulmonary disease) ([facility]) Continue ICS/LABA Recommend quitting smoking Associated Problem(s): Insomnia Continue trazodone Pt was seen in december, she was supposed to have a referral for podiatry. Pt had never received call from referral and [facility] every month with her with and without boot before moving forward with MRI- she does still have a fracture. She sees him again tomorrow and discuss with her what the treatment would be possibly surgery Pt is needing a refill on all her medication Pt is currently having possibly a common cold, headache and a swollen left foot. Pt is asking for a new rx order for a new albuteral nebulizer the machine she had broke. Images from the original note were not included. Janice Nugent is a 53 y.o. female presents with chief complaint of No chief complaint on file. HPI: Out of meds most meds for some time, insulin about a week Diabetes She presents for her follow-up diabetic visit. She has type 2 diabetes mellitus. Her disease course has been worsening. There are no hypoglycemic associated symptoms. Pertinent negatives for hypoglycemia include no dizziness, headaches, nervousness/anxiousness, seizures or tremors. Pertinent negatives for diabetes include no blurred vision, no chest pain, no fatigue, no foot paresthesias, no polydipsia, no polyphagia, no polyuria and no visual change. There are no hypoglycemic complications. Symptoms are worsening. Pertinent negatives for diabetic complications include no nephropathy or peripheral neuropathy. Risk factors for coronary artery disease include diabetes mellitus, dyslipidemia, hypertension, obesity, sedentary lifestyle and tobacco exposure. When asked about current treatments, none were reported. She never participates in exercise. Her overall blood glucose range is >200 mg/dl. Hypertension This is a chronic problem. The current episode started more than 1 year ago. The problem is unchanged. The problem is controlled. Associated symptoms include shortness of breath. Pertinent negatives include no blurred vision, chest pain, headaches, palpitations or peripheral edema. There are no associated agents to hypertension. Risk factors for coronary artery disease include diabetes mellitus, dyslipidemia, obesity, post-menopausal state, sedentary lifestyle and smoking/tobacco exposure. Past treatments include JORGE inhibitors. The current treatment provides significant improvement. Asthma She complains of cough and shortness of breath. There is no chest tightness, difficulty breathing, sputum production or wheezing. This is a chronic problem. The current episode started more than 1 year ago. The problem occurs intermittently. The problem has been unchanged. Pertinent negatives include no appetite change, chest pain, ear pain, fever, headaches, myalgias or sore throat. Relieved by: ICS/LABA. She reports significant improvement on treatment. Her past medical history is significant for asthma and COPD. SUBJECTIVE: MEDICATIONS: Current Outpatient Medications Medication Instructions albuterol HFA 90 mcg/act inhaler 2 puffs, Inhalation, Every 6 hours PRN albuterol 2.5 mg, Nebulization, Every 6 hours PRN Alcohol Swabs pads 1 Pad, Does not apply, 2 times daily atorvastatin (LIPITOR) 40 mg, Oral, Nightly Blood Glucose Monitoring Suppl (Blood Glucose Monitor System) w/Device kit 1 Device, Does not apply, 2 times daily dapagliflozin (FARXIGA) 10 mg, Oral, Daily FLUoxetine (PROZAC) 20 mg, Oral, Daily Fluticasone-Salmeterol (Advair Diskus) 250-50 MCG/ACT aerosol powder 1 Inhalation, Inhalation, 2 times daily, Rinse mouth after use insulin glargine (LANTUS) 40 Units, Subcutaneous, Daily Insulin Pen Needle (pen needle 11/04 ) 31G x 5 mm misc 1 each, Subcutaneous, Daily, Use as instructed Lancets 33G misc 1 Lancet, Does not apply, 2 times daily Lantus SoloStar 30 Units, Daily lisinopril 20 mg, Oral, Daily meloxicam (MOBIC) 7.5 mg, Daily RT metFORMIN (GLUCOPHAGE) 1,000 mg, Oral, 2 times daily with meals montelukast (SINGULAIR) 10 mg, Oral, Nightly traZODone (DESYREL) 150 mg, Oral, Nightly ALLERGIES: Allergies Allergen Reactions Wellbutrin [Bupropion] REVIEW OF SYMPTOMS: Review of Systems Constitutional: Negative for appetite change, chills, fatigue and fever. HENT: Negative for congestion, ear pain and sore throat. Eyes: Negative for blurred vision, pain, discharge, redness and visual disturbance. Respiratory: Positive for cough and shortness of breath. Negative for sputum production and wheezing. Cardiovascular: Negative for chest pain, palpitations and leg swelling. Gastrointestinal: Negative for abdominal pain, blood in stool, constipation, diarrhea, nausea and vomiting. Genitourinary: Negative for difficulty urinating, dysuria and frequency. Musculoskeletal: Negative for arthralgias, back pain, joint swelling and myalgias. Skin: Negative for rash and wound. Neurological: Negative for dizziness, tremors, seizures, syncope and headaches. Psychiatric/Behavioral: Negative for behavioral problems, self-injury and suicidal ideas. The patient is not nervous/anxious. Hematological: Does not bruise/bleed easily. Endocrine: Negative for polydipsia, polyphagia and polyuria. Allergic/Immunologic: Negative for environmental allergies and food allergies. PAST MEDICAL HISTORY Past Medical History: Diagnosis Date Asthma ([facility]) 09/28/2023 COPD (chronic obstructive pulmonary disease) ([facility]) 09/28/2023 Depression ([facility]) 09/28/2023 Gastritis GERD (gastroesophageal reflux disease) 09/28/2023 History of hernia repair HTN (hypertension) ([facility]) 09/28/2023 Hyperlipidemia ([facility]) 09/28/2023 Hyponatremia Insomnia 09/28/2023 Non compliance w medication regimen Non-compliance RUQ pain Tobacco user 09/28/2023 Type 2 diabetes mellitus without complication, with long-term current use of insulin ([facility]) 07/27/2023 Past Surgical History: Procedure Laterality Date APPENDECTOMY 1989 SECTION, LOW TRANSVERSE COLECTOMY 1990 HERNIA REPAIR OOPHORECTOMY Right family history includes Coronary artery disease in her father; Deep vein thrombosis in her mother; Diabetes in an other family member; Hypertension in an other family member. OBJECTIVE: Visit Vitals BP 130/76 (BP Location: Left arm, Patient Position: Sitting, BP Cuff Size: Adult long) Pulse 105 Temp 97.2 F (Temporal) Resp 18 Ht 5' 3 Wt 185 lb 12.8 oz SpO2 93% BMI 32.91 kg/m Smoking Status Every Day BSA 1.94 m Physical Exam Vitals and nursing note reviewed. Constitutional: General: She is not in acute distress. Appearance: Normal appearance. HENT: Head: Normocephalic and atraumatic. Right Ear: External ear normal. Left Ear: External ear normal. Nose: Nose normal. Mouth/Throat: Mouth: Mucous membranes are moist. Eyes: Extraocular Movements: Extraocular movements intact. Conjunctiva/sclera: Conjunctivae normal. Neck: Vascular: No carotid bruit. Cardiovascular: Rate and Rhythm: Normal rate and regular rhythm. Pulses: Normal pulses. Heart sounds: Normal heart sounds. Pulmonary: Effort: Pulmonary effort is normal. Breath sounds: Wheezing (exp) present. Abdominal: General: Bowel sounds are normal. There is no distension. Palpations: Abdomen is soft. There is no mass. Tenderness: There is no abdominal tenderness. Musculoskeletal: General: Normal range of motion. Cervical back: Normal range of motion and neck supple. Right lower leg: No edema. Left lower leg: No edema. Lymphadenopathy: Cervical: No cervical adenopathy. Skin: General: Skin is warm and dry. Capillary Refill: Capillary refill takes 2 to 3 seconds. Findings: No rash. Neurological: General: No focal deficit present. Mental Status: She is alert and oriented to person, place, and time. Psychiatric: Mood and Affect: Mood normal. Behavior: Behavior normal. Thought Content: Thought content normal. Judgment: Judgment normal. ASSESSMENT AND PLAN: No follow-ups on file. Problem List Items Addressed This Visit Type 2 diabetes mellitus without complication, with long-term current use of insulin ([facility]) - Primary Will trial DEXCOM 7 system Restart meds, metformin daily for 5 days, then increase to 1 pill twice a day Relevant Medications dapagliflozin (Farxiga) 10 MG metFORMIN (Glucophage) 1000 MG tablet insulin glargine (Lantus) 100 UNIT/ML injection Continuous Glucose Global Professional (Dexcom G7 Global Professional) device Continuous Glucose Sensor (Dexcom G7 Sensor) misc HTN (hypertension) ([facility]) Stable, out of meds for some time Restart BP pill Relevant Medications lisinopril 20 MG tablet COPD (chronic obstructive pulmonary disease) ([facility]) Continue ICS/LABA Recommend quitting smoking Relevant Medications Fluticasone-Salmeterol (Advair Diskus) 250-50 MCG/ACT aerosol powder montelukast (Singulair) 10 MG tablet Insomnia Continue trazodone Relevant Medications traZODone (Desyrel) 150 MG tablet Asthma ([facility]) Stable, continue current meds Quit smoking Relevant Medications Fluticasone-Salmeterol (Advair Diskus) 250-50 MCG/ACT aerosol powder Tobacco user The patient has been advised of the risks of continued smoking: stroke, KS, all forms of cancer, lung disease, and . Options for quitting smoking include: cold turkey, hypnosis, acupuncture, nicotine replacement meds (gum, lozenges, and patches), Buproprion, and Varenicline. At this time pt is encouraged to evaluate their goals for wanting to quit smoking, and reach out to provider when ready to start this process Hyperlipidemia ([facility]) Restart statin Relevant Medications atorvastatin (Lipitor) 40 MG tablet Depression ([facility]) Relevant Medications FLUoxetine (PROzac) 20 MG capsule Obesity (BMI 30-39.9) Encounter for screening mammogram for malignant neoplasm of breast Relevant Orders Bilateral screening mammogram documented in this encounter [facility] 06-12-2024 Instructions Renee Blount NP - 06/12/2024 2:00 PM EDT Restart metfromin 1000mg once a day for 5-7 days, then increase to twice a day with meals Fu in 4 weeks documented in this encounter [facility] 05-02-2024 History of Presen t illness Narrative Chief Complaint Patient presents with Left Foot - Pain Pain Radiation To: none Pain Duration: 01/01/2024 Pain Frequency: occasional Pain Quality: dull, aching Factors That Aggravate Pain: activity (walking) Factors That Relieve Pain: rest Here for office visit for re-evaluation and with worsening symptoms at times. IMPRESSION/PLAN: Ddx discussed which includes tear or other significant derangement which could require surgical intervention or change in treatment plan. MRI needed to further direct treatment plan. This has been ordered and I will see the patient back for a [id number] encounter to review results, re-evaluate as needed and guide any further treatment. Bilateral foot and ankle examined today. INSPECTION: No swelling. No ecchymosis. No deformity. GAIT: Non-antalgic. PALPATION: Arlette tenderness at 5th Metatarsal Left. No other tenderness. ROM: Full AROM in DF, PF, eversion, inversion. STRENGTH: 12/24 Visit Vitals Temp 97.6 F (36.4 C) (Temporal) Ht 1.575 m (5' 2 ) Wt 84 kg (185 lb 3.2 oz) BMI 33.87 kg/m *Time components listed in minutes below. This data may or may not be needed for insurance reimbursement purposes. Reviewing clinical note(s) from previous visit/ER/urgent care/PCP/other specialists 4 Review of medical history 4 Review of medical customer service representative or boxing trainer note 4 Independently obtain and review medical history and history of present illness with patient 4 Other counseling and coordination of care 7 Updating patient chart, documentation of clinical encounter and signing of orders 7 *Portions of this note may have been created with [employer] or other software which leads to grammatical and typographical errors which are not media sales representative of the intent with my spoken words. Chief Complaint Patient presents with Left Foot - Pain Pain Radiation To: none Pain Duration: 01/01/2024 Pain Frequency: occasional Pain Quality: dull, aching Factors That Aggravate Pain: activity (walking) Factors That Relieve Pain: rest Here for office visit for re-evaluation and with worsening symptoms at times. Treated conservatively for 5th MT base Fx. Still painful in this area. Also having new neck pain and R UE symptoms. Recent [facility] note reviewed where she was seen for this problem. IMPRESSION/PLAN: Ddx discussed which includes tear or other significant derangement which could require surgical intervention or change in treatment plan. Concern is non-union of her MT fx which may need surgery or change in management. Was initially immobilized and tried and failed several conservative measures. Several analgesics tried. Had 6+ weeks of directed HEP/ therapy and problem continues. MRI needed to further direct treatment plan. This has been ordered and I will see the patient back for a [id number] encounter to review results, re-evaluate as needed and guide any further treatment. Will refer to Dr. Thompson RE: neck pain with R UE paresthesias. Thank you for your help Dr. Martinez. I'll see her back after the foot MRI. Bilateral foot and ankle examined today. INSPECTION: No swelling. No ecchymosis. No deformity. GAIT: Non-antalgic. PALPATION: Arlette tenderness at 5th Metatarsal Left. No other tenderness. ROM: Full AROM in DF, PF, eversion, inversion. STRENGTH: 5 Visit Vitals Temp 97.6 F (36.4 C) (Temporal) Ht 1.575 m (5' 2 ) Wt 84 kg (185 lb 3.2 oz) BMI 33.87 kg/m *Time components listed in minutes below. This data may or may not be needed for insurance reimbursement purposes. Reviewing clinical note(s) from previous visit/ER/urgent care/PCP/other specialists 4 Review of medical history 4 Review of medical customer service representative or boxing trainer note 4 Independently obtain and review medical history and history of present illness with patient 4 Other counseling and coordination of care 7 Updating patient chart, documentation of clinical encounter and signing of orders 7 *Portions of this note may have been created with [employer] or other software which leads to grammatical and typographical errors which are not media sales representative of the intent with my spoken words. Clinical faculty i on call medical assistant/AT/MA was acting as a scribe today for this note. I have performed all essential components of the history, and physical exam. I have confirmed the diagnosis and developed a plan of care at this visit. I have reviewed the note following the visit and have made edits as appropriate to my evaluation and plan of care. Ray Mello DO documented in this encounter [facility] 04-10-2024 History of Presen t illness Narrative URGENT CARE eNCOUnter CHIEF COMPLAINT Shoulder Pain (NKI right shoulder pain x6days limited ROM) HPI Janice Nugent is a 53 y.o. female who presents today for complaint of right shoulder pain for the past 5-6 days. Patient denies any known injury. She does have increased pain when she moves her neck a certain way. Denies chest pain or shortness a breath. Patient states it feels like it catches sometimes. No fever or chills. No recent illness. She has tried ibuprofen and Tylenol at home with little relief. REVIEW OF SYSTEMS Review of Systems As documented in HPI. A thorough 12 point review of systems was evaluated including Constitutional and general appearance, Head, Face, Ears, Eyes, Nose, Throat, Cardiovascular, Pulmonary, GI, , Skin, and Psychiatric and was found to be negative without symptoms or signs consistent with acute pathology with the exception of that specifically documented in the HPI section of this documentation. PAST MEDICAL HISTORY Past Medical History: Diagnosis Date Asthma Depression Diabetes mellitus SURGICAL HISTORY No past surgical history on file. CURRENT MEDICATIONS Current Outpatient Medications Medication Sig Dispense Refill FLUoxetine 10 MG capsule Take 1 capsule by mouth daily. Meloxicam 7.5 MG tablet Take 1 tablet by mouth daily. 30 tablet 1 metFORMIN 1000 MG tablet Take 1 tablet by mouth 2 times daily. Tizanidine 2 MG tablet Take 1 tablet by mouth 3 times daily as needed for Muscle spasms. 21 tablet 0 No current facility-administered medications for this visit. ALLERGIES Allergies Allergen Reactions Wellbutrin [Bupropion] Swelling FAMILY HISTORY History reviewed. No pertinent family history. SOCIAL HISTORY Social History Socioeconomic History Marital status: Spouse name: Not on file Number of children: Not on file Years of education: Not on file Highest education level: Not on file Occupational History Not on file Tobacco Use Smoking status: Every Day Current packs/day: 1.00 Average packs/day: 1 pack/day for 30.6 years (30.6 ttl pk-yrs) Types: Cigarettes Start date: 08/22/1993 Smokeless tobacco: Never Vaping Use Vaping status: Never Used Substance and Sexual Activity Alcohol use: Not Currently Drug use: Never Sexual activity: Not on file Other Topics Concern Service Not Asked Blood Transfusions Not Asked Caffeine Concern Not Asked Occupational Exposure Not Asked Hobby Hazards Not Asked Sleep Concern Not Asked Stress Concern Not Asked Weight Concern Not Asked Special Diet Not Asked Back Care Not Asked Exercise Not Asked Bike Helmet Not Asked Seat Belt Not Asked Domestic Violence No Social History Narrative Not on file Social Determinants of Health Financial Resource Strain: Not on file Food Insecurity: Not on file Transportation Needs: Not on file Physical Activity: Not on file Stress: Not on file Social Connections: Not on file Intimate Partner Violence: Not on file Housing Stability: Not on file PHYSICAL EXAM BP 144/72 (BP Location: Right arm, BP Position: Sitting) Pulse 96 Temp 96.9 F (36.1 C) (Temporal) Resp 20 Ht 1.575 m (5' 2 ) Wt 83.5 kg (184 lb) SpO2 96% BMI 33.65 kg/m Smoking Status Every Day Physical Exam General exam: Patient is well-developed and well-nourished in no distress. Patient does not appear acutely ill or toxic. Eye exam: Lids and conjunctivae are normal ENT exam: head and facial exam is normal. The neck is supple without meningeal signs. No significant adenopathy. No cervical midline tenderness. + tenderness to right trapezius muscle. Pulmonary exam: No respiratory distress. Respiratory rate is normal. No stridor. Breath sounds are equal bilaterally. There are no wheezes, rales, or rhonchi noted. Cardiac exam: The cardiac rate and rhythm are normal. No significant murmurs, rubs, or gallops. Peripheral pulses are normal. Skin and soft tissue: Skin is warm and dry, without significant abnormality. Good color. Musculoskeletal exam: normal range of motion of right shoulder. There is no peripheral edema. Musculoskeletal exam of the lower extremities is normal without significant focal tenderness or spasm. Neurologic: Patient is alert and appropriate. Normal speech. Normal symmetric strength and tone in all extremities. Psychiatric: Normal adult with appropriate demeanor and interpersonal interaction. Is oriented to person, place, and time. Diagnosis, Assessment & Plan: Janice was seen today for shoulder pain. Diagnoses and all orders for this visit: Neck muscle spasm - Ketorolac (TORADOL) injection 30 mg Other orders - Tizanidine 2 MG tablet; Take 1 tablet by mouth 3 times daily as needed for Muscle spasms. 53-year-old female presents today with what appears to be a neck muscle spasm. I have low suspicion for cardiac or pulmonary etiology. Patient given injection of Toradol in the clinic and prescribed tizanidine muscle relaxer to help with the spasms. If any new or worsening symptoms go to the ER. Otherwise follow up with the primary care provider. TOÑO Palomares 04/10/2024 documented in this encounter [facility] 03-28-2024 History of Presen t illness Narrative Chief Complaint Patient presents with Left Foot - Pain Pain Radiation To: Achilles Pain Duration: 01/01/24 Pain Frequency: intermittent Pain Quality: aching, sharp Factors That Aggravate Pain: activity Factors That Relieve Pain: rest, cold, medications, over the counter (OTC) Bilateral foot and ankle examined today. INSPECTION: Mild swelling- lateral LT foot. No ecchymosis. No deformity. GAIT: Ambulation in walking boot. PALPATION: Lateral left foot tenderness, including the base of 5th metatarsal. No other tenderness. ROM: Full AROM in DF, PF, eversion, inversion. STRENGTH: 12/24 Visit Vitals Ht 1.575 m (5' 2 ) BMI 34.57 kg/m *Time components listed in minutes below. This data may or may not be needed for insurance reimbursement purposes. Reviewing clinical note(s) from previous visit/ER/urgent care/PCP/other specialists 4 Review of medical history 4 Review of medical customer service representative or boxing trainer note 4 Independently obtain and review medical history and history of present illness with patient 4 Other counseling and coordination of care 7 Updating patient chart, documentation of clinical encounter and signing of orders 7 *Portions of this note may have been created with [employer] or other software which leads to grammatical and typographical errors which are not media sales representative of the intent with my spoken words. documented in this encounter [facility] 02-08-2024 History of Presen t illness Narrative Chief Complaint Patient presents with Left Foot - Pain Pain Frequency: constant Pain Quality: throbbing, burning, dull, aching Factors That Aggravate Pain: movement, activity, positioning, exertion, physical Factors That Relieve Pain: rest, relaxation, repositioning, immobilization, cold, medications, over the counter (OTC) Bilateral foot and ankle examined today. INSPECTION: Left-Mild swelling. No ecchymosis. No deformity. GAIT: Non-antalgic. PALPATION: Tenderness (left) 5th metatarsal. No other tenderness. ROM: Full AROM in DF, PF, eversion, inversion. STRENGTH: 12/24 Visit Vitals Temp 97.3 F (36.3 C) (Temporal) Ht 1.575 m (5' 2 ) Wt 85.7 kg (189 lb) BMI 34.57 kg/m *Time components listed in minutes below. This data may or may not be needed for insurance reimbursement purposes. Reviewing clinical note(s) from previous visit/ER/urgent care/PCP/other specialists 4 Review of medical history 4 Review of medical customer service representative or boxing trainer note 4 Independently obtain and review medical history and history of present illness with patient 4 Other counseling and coordination of care 7 Updating patient chart, documentation of clinical encounter and signing of orders 7 Medication ordering and discussion of risks, benefits and alternatives 3 PT ordering and discussion of expectations including proper progression 3 Independent review of previous imaging 4 Review of pertinent labs 3 Communicating and/or referring to other specialist 2 *Portions of this note may have been created with [employer] or other software which leads to grammatical and typographical errors which are not media sales representative of the intent with my spoken words. Chief Complaint Patient presents with Left Foot - Pain Pain Frequency: constant Pain Quality: throbbing, burning, dull, aching Factors That Aggravate Pain: movement, activity, positioning, exertion, physical Factors That Relieve Pain: rest, relaxation, repositioning, immobilization, cold, medications, over the counter (OTC) Seen at [facility] and outside records reviewed. Found to have a left foot 5th metatarsal fracture. History of diabetes and is a tobacco user. She has been in the boot since being seen in the hospital and worsening symptoms at times. Trouble sleeping at night. IMPRESSION/PLAN: Three views of the left foot were ordered and interpreted by me. X-rays demonstrate calcaneal spurring as well as an avulsion fracture at the proximal left 5th metatarsal base. Space is well preserved. 1. Left 5th metatarsal avulsion. 2. Calcaneal spurring. We discussed the findings including risk for fracture nonunion, especially given her comorbid conditions. and she does have a boot that is compromised. We will place her in a new boot today and she will wear this when up and active. Continue current analgesics. We will prescribe tizanidine for nighttime pain and spasm. Followup in 3 to 4 weeks with repeat x-ray at that time. (DOC:[id number]) Bilateral foot and ankle examined today. INSPECTION: Left-Mild swelling. No ecchymosis. No deformity. GAIT: boot PALPATION: Tenderness (left) 5th metatarsal. No other tenderness. ROM: Full AROM in DF, PF, eversion, inversion. STRENGTH: 12/24 Visit Vitals Temp 97.3 F (36.3 C) (Temporal) Ht 1.575 m (5' 2 ) Wt 85.7 kg (189 lb) BMI 34.57 kg/m *Time components listed in minutes below. This data may or may not be needed for insurance reimbursement purposes. Reviewing clinical note(s) from previous visit/ER/urgent care/PCP/other specialists 4 Review of medical history 4 Review of medical customer service representative or boxing trainer note 4 Independently obtain and review medical history and history of present illness with patient 4 Other counseling and coordination of care 7 Updating patient chart, documentation of clinical encounter and signing of orders 7 *Portions of this note may have been created with [employer] or other software which leads to grammatical and typographical errors which are not media sales representative of the intent with my spoken words. Clinical faculty i on call medical assistant/AT/ANISHA was acting as a scribe today for this note. I have performed all essential components of the history, and physical exam. I have confirmed the diagnosis and developed a plan of care at this visit. I have reviewed the note following the visit and have made edits as appropriate to my evaluation and plan of care. Ray Mello DO documented in this encounter [facility] Evaluation note Diagnosis Type 2 diabetes mellitus without complication, with long-term current use of insulin ([facility]/HCC)- Primary Episode of recurrent major depressive disorder, unspecified depression episode severity (CMS/HCC) Chronic obstructive pulmonary disease, unspecified COPD type (CMS/HCC) Asthma, unspecified asthma severity, unspecified whether complicated, unspecified whether persistent ([facility]/HCC) documented in this encounter [facility]* Diagnosis Left foot pain- Primary Pain in limb Nondisplaced fracture of fifth metatarsal bone, left foot, initial encounter for closed fracture documented [facility] this [facility]* Diagnosis Left foot pain Pain in limb documented in this [facility]* Diagnosis Left foot pain- Primary Pain in limb documented [facility]* Diagnosis Neck muscle spasm- Primary Spasm of muscle documented in this [facility]* Diagnosis Nondisplaced fracture of fifth metatarsal bone, left foot, initial encounter for closed fracture- Primary Left foot pain Pain in limb Neck pain Cervicalgia Arm paresthesia, right Disturbance of skin sensation documented in this [facility]* Diagnosis Left foot pain Pain in limb documented in this [facility]* Diagnosis Primary hypertension (CMS/HCC)- Primary Unspecified essential hypertension Type 2 diabetes mellitus without complication, with long-term current use of insulin ([facility]/HCC) Mixed hyperlipidemia ([facility]/HCC) Mixed hyperlipidemia Tobacco user Tobacco use disorder Obesity (BMI 30-39.9) documented in this encounter [facility] HealthcareEvaluation note* Diagnosis Nondisplaced fracture of fifth metatarsal bone, left foot, initial encounter for closed fracture documented [facility]* Diagnosis Type 2 diabetes mellitus without complication, with long-term current use of insulin ([facility]/HCC)- Primary Encounter for screening mammogram for malignant neoplasm of breast Episode of recurrent major depressive disorder, unspecified depression episode severity (CMS/HCC) Chronic obstructive pulmonary disease, unspecified COPD type (CMS/HCC) Asthma, unspecified asthma severity, unspecified whether complicated, unspecified whether persistent (CMS/HCC) Mixed hyperlipidemia (CMS/HCC) Mixed hyperlipidemia Tobacco user Tobacco use disorder Primary hypertension (CMS/HCC) Unspecified essential hypertension Insomnia, unspecified type Obesity (BMI 30-39.9) documented in this encounter [facility] HealthcareEvaluation note* Diagnosis Acute pain of left knee- Primary [facility] Diagnosis Type 2 diabetes mellitus without complication, with long-term current use of insulin ([facility])- Primary Encounter for screening mammogram for malignant neoplasm of breast Episode of recurrent major depressive disorder, unspecified depression episode severity (CMS/HCC) Chronic obstructive pulmonary disease, unspecified COPD type (CMS/HCC) Asthma, unspecified asthma severity, unspecified whether complicated, unspecified whether persistent (CMS/HCC) Mixed hyperlipidemia (CMS/HCC) Mixed hyperlipidemia Tobacco user Tobacco use disorder Primary hypertension (CMS/HCC) Unspecified essential hypertension Insomnia, unspecified type Obesity (BMI 30-39.9) Needs flu shot Need for prophylactic vaccination and inoculation against influenza Type 2 diabetes mellitus without complication, with long-term current use of insulin ([facility]) documented in this encounter [facility] note* Diagnosis Type 2 diabetes mellitus without complication, with long-term current use of insulin ([facility]/HCC)- Primary Encounter for screening mammogram for malignant neoplasm of breast Episode of recurrent major depressive disorder, unspecified depression episode severity (CMS/HCC) Chronic obstructive pulmonary disease, unspecified COPD type (CMS/HCC) Asthma, unspecified asthma severity, unspecified whether complicated, unspecified whether persistent (CMS/HCC) Mixed hyperlipidemia (CMS/HCC) Mixed hyperlipidemia Tobacco user Tobacco use disorder Primary hypertension (CMS/HCC) Unspecified essential hypertension Insomnia, unspecified type Obesity (BMI 30-39.9) Needs flu shot Need for prophylactic vaccination and inoculation against influenza Type 2 diabetes mellitus without complication, with long-term current use of insulin ([facility])- Primary Primary hypertension (CMS/HCC) Unspecified essential hypertension Obesity (BMI 30-39.9) Tobacco user Tobacco use disorder Chronic obstructive pulmonary disease, unspecified COPD type (CMS/HCC) Asthma, unspecified asthma severity, unspecified whether complicated, unspecified whether persistent (CMS/HCC) documented in this encounter [facility] HealthcareInstructions* Attachments The following attachments cannot be sent through Care Everywhere. * Neck Spasm (Citizen Of [place]) [facility] Purpose Family History No Family History Records FoundNo Family History Records FoundNo Family History Records FoundNo Family History Records Found Advance Directives No Advanced Directives Records FoundNo Advanced Directives Records FoundNo Advanced Directives Records FoundNo Advanced Directives Records Found Reason for Referral Specialty Diagnoses / Procedures Referred By Contac t Referred To Contact Diagnoses Nondisplaced fracture of fifth metatarsal bone, left foot, initial encounter for closed fracture Procedures MRI FOOT LEFT WITHOUT CONTRAST CHG MRI LOWER EXTREM OTH/THN JT W/O CONTR MATRL Ray Mello, DO [address] [place] [address] Referral ID Status Reason Start Date Expiration Date V isits Requested Visits Authorized [id number] New Request 05/02/2024 05/27/2025 1 1 Specialty Diagnoses / Procedures Referred By Contac t Referred To Contact Neurological Surgery / Neurologic Surgery Diagnoses Neck pain Arm paresthesia, right Ray Mello, DO [address] [place] [address] Mauri Thompson MD [address] [place] [id number] Referral ID Status Reason Start Date Expiration Date V isits Requested Visits Authorized [id number] New Request 05/02/2024 05/27/2025 1 1 Referral ID Status Reason Start Date Expiration Date Visits Re quested Visits Authorized [id number] Closed 05/02/2024 05/27/2025 1 1 Additional Source Comments INFORMATION SOURCE (unrecogn ized section and content) DATE CREATED AUTHOR 04/21/2022 [facility] DATE CREATED AUTHOR AUTHOR'S ORGANIZ ATION 01/11/2024 [facility] EPIC DATE CREATED AUTHOR AUTHOR'S ORGANIZ ATION 06/09/2024 [facility] DATE CREATED AUTHOR AUTHOR'S ORGANIZ ATION 06/15/2024 [facility] sp[facility] Care Teams (unrecognized sec tion and content) Manager Fund Relationship Specialty Start Date End Date Mg Moyer MD [address] [place] [phone] PCP - General Family Medicine 07/20/23 Renee Blount NP [address] [place] [address] Nurse Practitioner Family Medicine 08/22/22 Manager Fund Relationship Specialty Start Date End Date ShannenramanahoracioRenee choudhury CNP PCP - General Certified Nurse Practitioner 06/11/20 Manager Fund Relationship Specialty Start Date End Date ShannenramanakathyRenee FUNERAL SALES MANAGER PCP - General Certified Nurse Practitioner 06/11/20 Manager Fund Relationship Specialty Start Date End Date ShannenramanaCaity chavezradha SAMANTHA PCP - General Certified Nurse Practitioner 06/11/20 Manager Fund Relationship Specialty Start Date End Date ShannenramanahoracioRenee choudhury SAMANTHA PCP - General Certified Nurse Practitioner 06/11/20 Manager Fund Relationship Specialty Start Date End Date ShannenramanahoracioRenee choudhury CNP PCP - General Certified Nurse Practitioner 06/11/20 Manager Fund Relationship Specialty Start Date End Date ShannenramanakathyRenee CNP PCP - General Certified Nurse Practitioner 06/11/20 Manager Fund Relationship Specialty Start Date End Date Mg Moyer MD [address] [place] [address] PCP - General Family Medicine 01/09/24 Renee Blount NP [address] [place] [phone] PCP - [facility] 02/20/24 Renee Blount NP [address] [place] [address] Nurse Practitioner Family Medicine 08/22/22 Renee Blount NP [address] [place] [address] Nurse Practitioner Family Medicine 01/09/24 Manager Fund Relationship Specialty Start Date End Date Renee Blount CNP PCP - General Certified Nurse Practitioner 06/11/20 Manager Fund Relationship Specialty Start Date End Date Mg Moyer MD [address] [place] [phone] PCP - General Family Medicine 01/09/24 Renee Blount NP [address] [place] [phone] PCP - [facility] 02/20/24 Renee Blount NP [address] [place] [address] Nurse Practitioner Family Medicine 08/22/22 Renee Blount NP [address] [place] [phone] Nurse Practitioner Family Medicine 01/09/24 Manager Fund Relationship Specialty Start Date End Date Mg Moyer MD [address] [place] [phone] PCP - General [facility] 01/09/24 Renee Blount NP [address] [place] [address] PCP - [facility] 02/20/24 Renee Blount NP [address] [place] [address] Nurse Practitioner Family Medicine 08/22/22 Renee Blount NP [address] [place] [address] Nurse Practitioner Family [facility] 01/09/24 Manager Fund Relationship Specialty Start Date End Date Renee Blount CNP PCP - General Certified Nurse Practitioner 06/11/20 Manager Fund Relationship Specialty Start Date End Date Renee Blount NP [address] [place] [phone] PCP - [facility] 02/20/24 Mg Moyer MD [address] [place] [phone] PCP - General Family [facility] 06/21/24 Renee Blount NP [address] [place] [address] Nurse Practitioner Family Medicine 08/22/22 Renee Blount NP [address] [place] [address] Nurse Practitioner Family Medicine 01/09/24 Manager Fund Relationship Specialty Start Date End Date Renee Blount NP [address] [place] [phone] [facility] - [facility] 02/20/24 Mg Moyer MD [address] [place] [phone] PCP - [facility] 06/21/24 Renee Blount NP [address] [place] [phone] Nurse Practitioner Family [facility] 08/22/22 Renee Blount NP [address] [place] [address] Nurse Practitioner [facility] 01/09/24 Manager Fund Relationship Specialty Start Date End Date Renee Blount NP [address] [place] [phone] PCP - [facility] 02/20/24 Mg Moyer MD [address] [place] [address] PCP - [facility] 06/21/24 Renee Blount NP [address] [place] [phone] Nurse Practitioner Family Medicine 08/22/22 Renee Blount NP [address] [place] [address] Nurse Practitioner Family Medicine 01/09/24 Reason for Visit (unrecogniz ed section and content) Reason Comments Pain Reason Comments Shoulder Pain NKI right shoulder p ain x6days limited ROM Reason Comments Pain Specialty Diagnoses / Procedures Referred By Contac t Referred To Contact Diagnoses Nondisplaced fracture of fifth metatarsal bone, left foot, initial encounter for closed fracture Procedures MRI FOOT LEFT WITHOUT CONTRAST CHG MRI LOWER EXTREM OTH/THN JT W/O CONTR Ray Carter, DO [address] [place] [address] Referral ID Status Reason Start Date Expiration Date Visits Re quested Visits Authorized [id number] Closed 05/02/2024 05/27/2025 1 1 Reason Comments Follow-up Pain Reason Comments Diabetes FOR RECORDS PERTAINING TO PATIENTS WHO ARE OR HAVE BEEN ENROLLED IN A CHEMICAL DEPENDENCY/SUBSTANCEABUSE PROGRAM, SOME INFORMATION MAY BE OMITTED. This clinical summary was aggregated from multiple sources. Caution should be exercised in using it in the provision of clinical care. This summary normalizes information from multiple sources, and as a consequence, information in this document may materially change the coding, format and clinical context of patient data. In addition, data may be omitted in some cases. CLINICAL DECISIONS SHOULD BE BASED ON THE PRIMARY CLINICAL RECORDS. [employer] provides no warranty or guarantee of the accuracy or completeness of information in this document.
== END 2024-07-18 10:19 | disposition home or self-care (01) ==
LOC: MAMMO 10:18
PROVIDERS: PCP Nurse Practitioner; Visit Provider Nurse Practitioner
DX: Z12.31 Encounter for screening mammogram for malignant neoplasm of breast (principal); E11.9 Type 2 diabetes mellitus without complications; Z79.4 Long term (current) use of insulin
CPT/HCPCS: 36415; 77063; 77067; 80048

== ENCOUNTER 2024-07-18 10:41 | Outpatient (OUT) | payer OTHER, SELFPAY ==
[2024-07-18 11:04] LABS: Anion Gap 15.5; BUN Creatinine Ratio 9.2; Calcium 9.2 mg/dL (8.5-10.1); Carbon Dioxide 24.5 mmol/L (21.0-32.0); Chloride 103 mmol/L (98-107); Estimated GFR (African America >60 (>=60 mL/min/1.73m^2); Estimated GFR (Non-African Ame 59 (>=60 mL/min/1.73m^2); Glucose 54 mg/dL (74-106); Sodium 139 mmol/L (136-145)
--- OUTSIDE RECORDS SUMMARY | 2024-07-18 11:05 | XMS_ITS | CCD ---
Author Organization [facility]ini[facility] Care Team Providers Care Fish Net Maker Name Role Phone AICHHOLZ, WEB PROGRAMMER RENEE Primary Care Unavailable DR WYATT EDOUARD V Consulting Unavailable AICHHOLZ, WEB PROGRAMMER RENEE Admitting Unavailable AICHHOLZ, WEB PROGRAMMER RENEE Attending Unavailable AICHHOLZ, WEB PROGRAMMER RENEE Consulting Unavailable AICHHOLZ, WEB PROGRAMMER RENEE Primary Care Unavailable AICHHOLZ, WEB PROGRAMMER RENEE Admitting Unavailable AICHHOLZ, WEB PROGRAMMER RENEE Attending Unavailable AICHHOLZ, WEB PROGRAMMER RENEE Consulting Unavailable Aichholz HVAC CONTROLS TECHNICIAN, Renee Unavailable Mg Moyer MD Primary Care Provider SHAIKH BAH Attending Unavailable Aichholz WEB PROGRAMMER, Renee Primary Care Provider Aichholz HVAC CONTROLS TECHNICIAN, Renee Unavailable Mg Moyer MD Primary Care Provider [phone] Aichholz HVAC CONTROLS TECHNICIAN, Renee Unavailable Aichholz HVAC CONTROLS TECHNICIAN, Renee Unavailable AICHHOLZ, RENEE Attending Unavailable AICHHOLZ, [...] Unavailable Comfort WOODWARD, Mg Primary Care Provider Allergies Allergy Classification Reported Allergen(s) Allergy Type Date of Onset Reaction(s) Facility (1 source) buPROPion Drug Allergy 04-27-2003 [facility] Repository (18 sources) buPROPion Drug Allergy 07-20-2023 [facility] Medications Current Medications Medication Drug Class(es) Dates Sig (Normalized) Sig (Original) [id number] 200 actuat albuterol 0.09 mg/actuat metered dose inhaler (20 sources) beta2-Adrenergic Agonist Start: 11-14-2023 take 2 puff(s) by inhalation every six hours for wheezing albuterol HFA 90 mcg/act inhaler Indications: Chronic obstructive pulmonary disease, unspecified COPD type ([facility]) , Asthma, unspecified asthma severity, unspecified whether complicated, unspecified whether persistent ([facility]) Inhale 2 puffs every 6 (six) hours [...] Chronic obstructive pulmonary disease, unspecified COPD type ([facility]) , Asthma, unspecified asthma severity, unspecified whether complicated, unspecified whether persistent ([facility]) Inhale 2 puffs in the morning and [...] 81 MG chewable tablet Indications: Primary hypertension ([facility]) , Type 2 diabetes mellitus without complication, with long-term current use of insulin ([facility]) Chew 1 tablet (81 mg) Daily 90 tablet 3 07/18/2024 10/16/2024 Active atorvastatin 40 mg oral tablet (15 sources) HMG-CoA Reductase Inhibitor Start: 06-12-2024 End: 09-10-2024 take 1 tablet by mouth at bedtime atorvastatin (Lipitor) 40 MG tablet Indications: Mixed hyperlipidemia ([facility]) Take 1 tablet (40 mg) by mouth [...] Device before bedtime. 0 Active Continuous Glucose Administrative Sales Assistant (Dexcom G7 Administrative Sales Assistant) device (8 sources) Start: 06-12-2024 End: 06-12-2025 Continuous Glucose Administrative Sales Assistant (Dexcom G7 Administrative Sales Assistant) device Indications: Type 2 diabetes mellitus without complication, with long-term current use of insulin ([facility]) 1 each Daily 1 each 06/12/2024 06/12/2025 Active End: 06-12-2024 Continuous Glucose Administrative Sales Assistant (Dexcom G7 Administrative Sales Assistant) device 1 each Daily 06/12/2024 Discontinued (Reorder) Continuous Glucose Sensor (Dexcom G7 Sensor) mis (12 sources) Start: 07-18-2024 End: 08-17-2024 Continuous Glucose Sensor (D excom G7 Sensor) mis Indications: Type 2 diabetes mellitus without complication, with long-term current use of insulin (CMS/HCC) 1 each Daily 3 each 07/18/2024 08/17/2024 Active Start: 07-10-2024 End: 07-18-2024 Continuous Glucose Sensor (D excom G7 Sensor) [facility] USE DIRECTED FOR CONTINUOUS GLUCOSE MONITORING. CHANGE SENSOR EVERY 10 DAYS 07/10/2024 07/18/2024 Discontinued (Therapy completed) Start: 06-12-2024 End: 07-18-2024 Continuous Glucose Sensor (D excom G7 Sensor) [facility] Indications: Type 2 diabetes mellitus without complication, with long-term current use of insulin (CMS/HCC) 1 each Daily 3 each 06/12/2024 07/18/2024 Discontinued (Reorder) Start: 06-12-2024 End: 07-12-2024 Continuous Glucose Sensor (D excom G7 Sensor) [facility] Indications: Type 2 diabetes mellitus without complication, with long-term current use of insulin (CMS/HCC) 1 each Daily 3 each 06/12/2024 07/12/2024 Start: 06-12-2024 End: 07-12-2024 Continuous Glucose Sensor (D excom G7 Sensor) [facility] Indications: Type 2 diabetes mellitus without complication, with long-term current use of insulin (CMS/HCC) 1 each Daily 3 each 11 06/12/2024 07/12/2024 Active End: 06-12-2024 Continuous Glucose Sensor (D excom G7 Sensor) [facility] 1 each Daily 06/12/2024 Discontinued (Reorder) dapagliflozin [...] 10/28/2023 Active take 1 capsule by mo [facility] once daily FLUoxetine 10 MG capsule Take [...] 06-07-2024 ABSOLUTE BAS 0.1 10*3/uL Normal 0.0-0.2 [facility] Comment on above: Result Comment: Test ing performed at [place] [address] Performed By: #### B MPF, FX, PHY #### [place] [address] ABSOLUTE EOS 0.4 10*3/uL Normal 0.0-0.7 [facility] Comment on above: Performed By: #### B MPF, FX, PHY #### [place] [address] ABSOLUTE NEUTROPHIL COUNT 7.0 10*3/uL High 1.4-6.5 [facility] Comment on above: Performed By: #### B MPF, FX, PHY #### [place] [address] Basophils/100 WBC (Bld) 1.2 % Normal 0.0-2.0 [facility] Comment on above: Performed By: #### B MPF, FX, PHY #### [place] [address] DTYPE AUTO DIFF Normal [facility] Comment on above: Performed By: #### B MPF, FX, PHY #### [place] [address] Eosinophils/100 WBC (Bld) 3.4 % Normal 0.0-11.0 [facility] Comment on above: Performed By: #### B MPF, FX, PHY #### [place] [address] Lymphocytes (Bld) [#/Vol] 3.2 10*3/uL Normal 1.2-3.4 [facility] Comment on above: Performed By: #### B MPF, FX, PHY #### Testing performed at [place] [id number] Lymphocytes/100 WBC (Bld) 27.6 % Normal 20.0-55.0 [facility] Comment on above: Performed By: #### B MPF, FX, PHY #### [place] [address] Monocytes (Bld) [#/Vol] 0.9 10*3/uL High 0.0-0.7 [facility] Comment on above: Performed By: #### B MPF, FX, PHY #### [place] [address] Monocytes/100 WBC (Bld) 8.1 % Normal 0.0-10.0 [facility] Comment on above: Performed By: #### B MPF, FX, PHY #### [place] [address] Neutrophils/100 WBC (Bld) 59.7 % Normal 37.0-75.0 [facility] Comment on above: Performed By: #### B MPF, FX, PHY #### [place] [address] Erythrocyte distribution width (RBC) [Ratio] 17.0 % High 11.5-14.5 [facility] Comment on above: Performed By: #### B MPF, FX, PHY #### [place] [address] Hematocrit (Bld) [Volume fraction] 47.2 % Normal 36.0-48.0 [facility] Comment on above: Performed By: #### B MPF, FX, PHY #### [place] [address] Hemoglobin (Bld) [Mass/Vol] 15.4 g/dL Normal 12.0-16.0 [facility] Comment on above: Performed By: #### B MPF, FX, PHY #### [place] [address] MCH (RBC) [Entitic mass] 27.8 pg Normal 26.0-35.0 [facility] Comment on above: Performed By: #### B MPF, FX, PHY #### [place] [address] MCHC (RBC) [Mass/Vol] 32.6 g/dL Normal 27.0-37.0 [facility] Comment on above: Performed By: #### B MPF, FX, PHY #### [place] [address] MCV (RBC) [Entitic vol] 85.4 fL Normal 80.0-100.0 [facility] Comment on above: Performed By: #### B MPF, FX, PHY #### [place] [address] Platelet mean volume (Bld) [Entitic vol] 10.8 fL Normal 7.4-11.0 [facility] Comment on above: Performed By: #### B MPF, FX, PHY #### [place] [address] Platelets (Bld) [#/Vol] 204 10*3/uL Normal 130-400 [facility] Comment on above: Performed By: #### B MPF, FX, PHY #### [place] [address] RBC (Bld) [#/Vol] 5.53 10*6/uL High 4.0-5.4 [facility] Comment on above: Performed By: #### B MPF, FX, PHY #### [place] [address] WBC (Bld) [#/Vol] 11.7 10*3/uL High 3.6-11.0 [facility] Comment on above: Performed By: #### B MPF, FX, PHY #### [place] [address] CMP FASTINGon 06-07-2024 A:G RATIO 1.3 RATIO Normal 1.3-2.2 [facility] Comment on above: Performed By: #### B MPF, FX, PHY #### Testing performed at [address] [address] ALBUMIN 4.1 G/dl Normal 3.5-5.0 [facility] Comment on above: Performed By: #### B MPF, FX, PHY #### Testing performed at [place] [id number] ALP [Catalytic activity/Vol] 97 U/L Normal 38-126 [facility] Comment on above: Performed By: #### B MPF, FX, PHY #### Testing performed at [address] [address] ALT [Catalytic activity/Vol] 29 U/L Normal <35 [facility] Comment on above: Performed By: #### B MPF, FX, PHY #### Testing performed at [place] [id number] AST [Catalytic activity/Vol] 25 U/L Normal 14-36 [facility] Comment on above: Performed By: #### B MPF, FX, PHY #### Testing performed at [address] [address] Bilirubin [Mass/Vol] 0.6 mg/dL Normal 0.2-1.3 [facility] Comment on above: Performed By: #### B MPF, FX, PHY #### Testing performed at [address] [address] Calcium [Mass/Vol] 9.2 mg/dL Normal 8.4-10.2 [facility] Comment on above: Performed By: #### B MPF, FX, PHY #### Testing performed at [address] [address] Chloride [Moles/Vol] 97 mmol/L Low 98-107 [facility] Comment on above: Result Comment: Pleradha peña note: Triglyceride levels of 600mg/dL or higher may positively bias chloride results by approximately 2.1 mmol Performed By: #### B MPF, FX, PHY #### [place] [address] CO2 [Moles/Vol] 25 mmol/L Normal 22-30 [facility] Comment on above: Performed By: #### B MPF, FX, PHY #### [place] [address] Creatinine [Mass/Vol] 0.50 mg/dL Low 0.7-1.2 [facility] Comment on above: Performed By: #### B MPF, FX, PHY #### [place] [address] EST. GFR, 165 ml/min/1.73sq.m [facility] Comment on above: Performed By: #### B MPF, FX, PHY #### [place] [address] EST. GFR,Non 136 ml/min/1.73sq.m [facility] Comment on above: Performed By: #### B MPF, FX, PHY #### [place] [address] GFR Information Average GFR for 50-5 9 years old = 93. Normal [facility] Comment on above: Result Comment: Network/Telecom Engineer juan alberto Kidney disease, GFR = <60. Kidney failure, GFR = <15. The GFR estimate is not adjusted for extreme body surface area or acute process, nor has it been validated for women or ethnic groups other than and . Testing performed at [place] [address] Performed By: #### B MPF, FX, PHY #### [place] [address] Glucose [Mass/Vol] 336 mg/dL High 70-100 [facility] Comment on above: Result Comment: NORMAL <100 mg/dL PREDIABETES 101-126 mg/dL DIABETES 126 mg/dL or higher Performed By: #### B MPF, FX, PHY #### Testing performed at [address] [address] Potassium [Moles/Vol] 4.8 mmol/L Normal 3.5-5.1 [facility] Comment on above: Performed By: #### B MPF, FX, PHY #### Testing performed at [address] [address] Protein [Mass/Vol] 7.2 g/dL Normal 6.3-8.2 [facility] Comment on above: Performed By: #### B MPF, FX, PHY #### Testing performed at [address] [address] Sodium [Moles/Vol] 132 mmol/L Low 137-145 [facility] Comment on above: Performed By: #### B MPF, FX, PHY #### Testing performed at [place] [id number] Urea nitrogen [Mass/Vol] 16 mg/dL Normal 7-20 [facility] Comment on above: Performed By: #### B MPF, FX, PHY #### Testing performed at [place] [id number] FAX REQUESTon 06-07-2024 FAX TO [phone] [facility] Comment on above: Performed By: #### B MPF, FX, PHY #### Testing performed at [address] [address] FAX TO [phone] [facility] Comment on above: Performed By: #### B MPF, FX, PHY #### Testing performed at [address] [address] FAX TO [phone] [facility] Comment on above: Performed By: #### P HY, HA1CT, FX #### Testing performed at [address] [address] FAX TO [phone] [facility] Comment on above: Performed By: #### B MPF, FX, PHY #### [place] [address] FAX TO [phone] [facility] Comment on above: Performed By: #### P HY, FX, TSH2 #### [place] [address] FAX TO [phone] [facility] Comment on above: Performed By: #### A CBC, FX, LIP2, PHY, CMPF #### [place] [address] FREE T4on 06-07-2024 Free T4 [Mass/Vol] 1.07 ng/dL Normal 0.78-2.19 [facility] Comment on above: Result Comment: Test ing performed at [place] [address] Performed By: #### B MPF, FX, PHY #### Testing performed at [address] 06-07-20 24 [facility] Comment on above: Performed By: #### B MPF, FX, PHY #### Testing performed at [address] Comment on above: Performed By: #### B MPF, FX, PHY #### Testing performed at [address] Comment on above: Performed By: #### P HY, HA1CT, FX #### Testing performed at [address] Comment on above: Performed By: #### B MPF, FX, PHY #### [place] [address] GAL [facility] Comment on above: Performed By: #### P HY, FX, TSH2 #### Testing performed at [address] [address] GAL [facility] PHYSICIAN Renee Blount Normal [facility] Comment on above: Performed By: #### B MPF, FX, PHY #### Testing performed at [address] [address] HEMOGLOBIN A1Con 06-07-2024 Glucose [Mass/Vol] 260 mg/dL Normal [facility] Comment on above: Result Comment: Test ing performed at [place] [address] Performed By: #### P HY, HA1CT, FX #### [place] [address] HbA1c (Bld) [Mass fraction] 10.7 % High 0-6 [facility] Comment on above: Result Comment: NORMAL <5.7% PREDIABETES 5.7-6.4% DIABETES 6.5% OR HIGHER Performed By: #### P HY, HA1CT, FX #### Testing performed at [address] [address] LIPID PROFILEon 06-07-2024 Cholesterol [Mass/Vol] 220 mg/dL High 107-217 [facility] Comment on above: Performed By: #### B MPF, FX, PHY #### Testing performed at [address] [address] Cholesterol in HDL [Mass/Vol] 74 mg/dL Normal 33-75 [facility] Comment on above: Performed By: #### B MPF, FX, PHY #### Testing performed at [address] [address] Cholesterol in LDL [Mass/Vol] 104 mg/dL High <100 [facility] Comment on above: Performed By: #### B MPF, FX, PHY #### Testing performed at [address] [address] Cholesterol in VLDL [Mass/Vol] 42 mg/dL High 5.0-25 [facility] Comment on above: Performed By: #### B MPF, FX, PHY #### [place] [address] Cholesterol.total/Cho lesterol in HDL [Mass ratio] 2.97 {ratio} Normal [facility] Comment on above: Result Comment: RISK TOTAL/HDL RATIO MEN WOMEN 1/2 AVERAGE 3.43 3.27 AVERAGE 4.97 4.44 2X AVERAGE 9.55 7.05 3X AVERAGE 23.99 11.04 Testing performed at [place] [address] Performed By: #### B MPF, FX, PHY #### [place] [address] Triglyceride [Mass/Vol] 209 mg/dL High 0-150 [facility] Comment on above: Performed By: #### B MPF, FX, PHY #### [place] [address] MALB/CREAT RATIO,URINEon MALB/CREAT RATIO,URINE 29.0 mg MALB/g CREAT Normal 1.3-30.0 [facility] Comment on above: Result Comment: Test ing performed at [place] [address] Performed By: #### B MPF, FX, PHY #### [place] [address] MICROALBUMIN,RANDOM URINE 17.9 mg/L High 0-16.7 [facility] Comment on above: Performed By: #### B MPF, FX, PHY #### [place] [address] URINE CREATININE RANDOM 61.8 MG/DL Normal [facility] Comment on above: Result Comment: NO N ORMAL VALUES ESTABLISHED FOR RANDOM SPECIMENS Performed By: #### B MPF, FX, PHY #### [place] [address] TSHon 06-07-2024 TSH 2.230 uIU/ML Normal 0.46-4.68 [facility] Comment on above: Result Comment: Test ing performed at [place] [address] Performed By: #### P HY, FX, TSH2 #### [place] [address] URINE MACROSCOPICon 06-07-20 24 Bilirubin Ql (U) Negative Normal NEGATIVE [facility] Comment on above: Performed By: #### B MPF, FX, PHY #### [place] [address] Clarity (U) CLEAR Normal CLEAR [facility] Comment on above: Performed By: #### B MPF, FX, PHY #### [place] [address] Color (U) YELLOW Normal YELLOW [facility] Comment on above: Performed By: #### B MPF, FX, PHY #### [place] [address] Glucose Ql (U) 500 mg/dl Abnormal NEGATIVE [facility] Comment on above: Performed By: #### B MPF, FX, PHY #### [place] [address] pH (U) 5.5 [pH] Normal 5.0-7.0 [facility] Comment on above: Performed By: #### B MPF, FX, PHY #### [place] [address] URINE HEMOGLOBIN Negative Normal NEGATIVE [facility] Comment on above: Performed By: #### B MPF, FX, PHY #### [place] [address] URINE KETONE TRACE Abnormal NEGATIVE [facility] Comment on above: Performed By: #### B MPF, FX, PHY #### [place] [address] URINE LEUKOTEST Negative Normal NEGATIVE [facility] Comment on above: Performed By: #### B MPF, FX, PHY #### [place] [address] URINE NITRATES Negative Normal NEGATIVE [facility] Comment on above: Performed By: #### B MPF, FX, PHY #### [place] [address] URINE SPEC GRAVITY 1.015 Normal 1.010-1.025 [facility] Comment on above: Performed By: #### B MPF, FX, PHY #### [place] [address] URINE TOTAL PROTEIN Negative Normal NEGATIVE [facility] Comment on above: Performed By: #### B MPF, FX, PHY #### [place] [address] Urobilinogen Qn (U) 0.2 {Zuhair'U}/dL Normal 0.2-1.0 [facility] Comment on above: Performed By: #### B MPF, FX, PHY #### [place] [address] URINE MICROSCOPICon 06-07-20 24 BACTERIA TRACE Abnormal NEGATIVE [facility] Comment on above: Performed By: #### B MPF, FX, PHY #### [place] [address] CASTS NONE Normal [facility] Comment on above: Performed By: #### B MPF, FX, PHY #### [place] [address] CRYSTAL NONE Normal NONE [facility] Comment on above: Performed By: #### B MPF, FX, PHY #### [place] [address] Epithelial cells LM Ql (Urine sed) 1 TO 5 Normal [facility] Comment on above: Performed By: #### B MPF, FX, PHY #### [place] [address] Mucus Ql (Urine sed) Negative Normal NEGATIVE [facility] Comment on above: Performed By: #### B MPF, FX, PHY #### Testing performed at [place] [address] [place] [address] URINE COMMENT CULTURE CRITERIA NOT MET, NO CULTURE PERFORMED. Normal [facility] Comment on above: Performed By: #### B MPF, FX, PHY #### Testing performed at [facility] [address] [place] [address] URINE RBC'S Negative Normal NEGATIVE [facility] Comment on above: Performed By: #### B MPF, FX, PHY #### Testing performed at [address] [address] URINE WBC'S 1 TO 5 Normal NEGATIVE [facility] Comment on above: Performed By: #### B MPF, FX, PHY #### Testing performed at [place] [id number] MRI FOOT LEFT WITHOUT CONTRA STon 06-06-2024 [...] 2. Mild mid and hindfoot osteoarthritis. Normal [facility] FAX REQUESTon 10-18-2023 FAX TO [phone] Normal [facility] Comment on above: Result Comment: SUSANNAH ECTED ON 10/18 AT 1456: PREVIOUSLY REPORTED UNKNOWN AT THIS TIME. LEFT VOICEMAIL AT OFFICE ASKING FOR FAX NUMBER Performed By: #### B MPF, FX, PHY #### [place] [address] FAX TO [phone] Normal [facility] Comment on above: Result Comment: SUSANNAH ECTED ON 10/18 AT 1456: PREVIOUSLY REPORTED UNKNOWN AT THIS TIME Performed By: #### B MPF, FX, PHY #### [place] [address] BMP FASTINGon 10-17-2023 Anion gap [Moles/Vol] 8 mmol/L Normal 8-16 [facility] Comment on above: Performed By: #### B MPF, FX, PHY #### [place] [address] Calcium [Mass/Vol] 9.2 mg/dL Normal 8.4-10.2 [facility] Comment on above: Performed By: #### B MPF, FX, PHY #### [place] [address] Chloride [Moles/Vol] 104 mmol/L Normal 98-107 [facility] Comment on above: Result Comment: Plea se note: Triglyceride levels of 600mg/dL or higher may positively bias chloride results by approximately 2.1 mmol Performed By: #### B MPF, FX, PHY #### [place] [address] CO2 [Moles/Vol] 23 mmol/L Normal 22-30 [facility] Comment on above: Performed By: #### B MPF, FX, PHY #### [place] [address] Creatinine [Mass/Vol] 0.60 mg/dL Low 0.7-1.2 [facility] Comment on above: Performed By: #### B MPF, FX, PHY #### [place] [address] EST. GFR, 134 ml/min/1.73sq.m [facility] Comment on above: Performed By: #### B MPF, FX, PHY #### [place] [address] EST. GFR,Non 110 ml/min/1.73sq.m [facility] Comment on above: Performed By: #### B MPF, FX, PHY #### [place] [address] GFR Information Average GFR for 50-5 9 years old = 93. Normal [facility] Comment on above: Result Comment: Network/Telecom Engineer juan alberto Kidney disease, GFR = <60. Kidney failure, GFR = <15. The GFR estimate is not adjusted for extreme body surface area or acute process, nor has it been validated for women or ethnic groups other than and . Testing performed at [place] [address] Performed By: #### B MPF, FX, PHY #### [place] [address] Glucose [Mass/Vol] 152 mg/dL High 70-100 [facility] Comment on above: Result Comment: NORMAL <100 mg/dL PREDIABETES 101-126 mg/dL DIABETES 126 mg/dL or higher Performed By: #### B MPF, FX, PHY #### [place] [address] Potassium [Moles/Vol] 4.2 mmol/L Normal 3.5-5.1 [facility] Comment on above: Performed By: #### B MPF, FX, PHY #### [place] [address] Sodium [Moles/Vol] 135 mmol/L Low 137-145 [facility] Comment on above: Performed By: #### B MPF, FX, PHY #### [place] [address] Urea nitrogen [Mass/Vol] 9 mg/dL Normal 7-20 [facility] Comment on above: Performed By: #### B MPF, FX, PHY #### [place] [address] GAL NEW PHYSICIANon 10-17-[address] [facility] PHYSICIAN RENEE BLOUNT, IMER Normal [facility] Comment on above: Performed By: #### B MPF, FX, PHY #### Testing performed at [address] PHYSICIAN RENEE BLOUNT, IMER Normal [facility] Comment on above: Performed By: #### B MPF, FX, PHY #### [place] [address] HEMOGLOBIN A1Con 10-17-2023 Glucose [Mass/Vol] 197 mg/dL Normal [facility] Comment on above: Result Comment: Test ing performed at [place] [address] Performed By: #### B MPF, FX, PHY #### [place] [address] HbA1c (Bld) [Mass fraction] 8.5 % High 0-6 [facility] Comment on above: Result Comment: NORMAL <5.7% PREDIABETES 5.7-6.4% DIABETES 6.5% OR HIGHER Performed By: #### B MPF, FX, PHY #### [place] [address] MG MAMM SCREEN 3D FARAZ CADon 04-13-2022 MG MAMM SCREEN 3D FARAZ CAD Patient: JANICE NUGENT Exam Date: 04/13/2022 : 1970 Gender:F Ordering : SAMANTHA BLOUNT WEB PROGRAMMER Admission #: [id number] Family : Order #: [id number] CLICK HERE TO VIEW EXAM RADIOLOGY REPORT [...] Treatments None Family Cancers None LOCATION: [facility] BREAST COMPOSITION: Scattered areas fibroglandular density. FINDINGS: [...] MD on 04/13/2022 at 14:38 Normal [facility] CBC AUTO DIFFon 03-10-2022 BASO # 0.1 103/ul Normal 0.0-0.1 [facility] Comment on above: Performed By: #### C BC #### [facility] [address] [place] [address] Dr. Jean Zabala Basophils/100 WBC (Bld) 1.1 % Normal 0.2-2.0 [facility] Comment on above: Performed By: #### C BC #### [facility] [address] [place] [address] Dr. Jean Zabala EO # 0.3 103/ul Normal 0.0-0.7 [facility] Comment on above: Performed By: #### C BC #### [facility] [address] [place] [address] Dr. Jean Zabala Eosinophils/100 WBC (Bld) 2.3 % Normal 0.9-7.0 [facility] Comment on above: Performed By: #### C BC #### [facility] [address] [place] [address] Dr. Jaen Zabala Erythrocyte distribution width (RBC) [Ratio] 14.1 % Normal 11.0-15.0 [facility] Comment on above: Performed By: #### C BC #### [facility] [address] [place] [address] Dr. Jean Zabala Hematocrit (Bld) [Volume fraction] 53.8 % Critically high 36.0-48.0 [facility] Comment on above: Performed By: #### C BC #### [facility] [address] [place] [address] Dr. Jean Zabala Hemoglobin (Bld) [Mass/Vol] 17.7 g/dL Critically high 12.0-16.0 [facility] Comment on above: Performed By: #### C BC #### [facility] [address] [place] [address] Dr. Jean Zabala IG # 0.08 10e3/ul Critically high 0.00-0.03 [facility] Comment on above: Performed By: #### C BC #### [facility] [address] [place] [address] Dr. Jean Zabala IG % 0.7 % Critically high 0.0-0.5 [facility] Comment on above: Performed By: #### C BC #### [facility] [address] [place] [address] Dr. Jean Zabala LYMPH # 4.6 103/ul Critically high 1.2-3.8 [facility] Comment on above: Performed By: #### C BC #### [facility] [address] [place] [address] Dr. Jean Zabala Lymphocytes/100 WBC (Bld) 37.2 % Normal 20.5-60.0 [facility] Comment on above: Performed By: #### C BC #### [facility] [address] [place] [address] Dr. Jean Zabala MANUAL DIFF REQ NO Normal [facility] Comment on above: Performed By: #### C BC #### [facility] [address] [place] [address] Dr. Jean Zabala MCH (RBC) [Entitic mass] 28.4 pg Normal 26.7-34.0 [facility] Comment on above: Performed By: #### C BC #### [facility] [address] [place] [address] Dr. Jean Zabala MCHC (RBC) [Mass/Vol] 32.9 g/dL Normal 29.9-35.2 [facility] Comment on above: Performed By: #### C BC #### [facility] [address] [place] [address] [address] Jean Zabala MCV (RBC) [Entitic vol] 86.2 fL Normal 81.0-99.0 [facility] Comment on above: Performed By: #### C BC #### [facility] [address] [place] [address] [address] Jean Zabala MONO # 0.8 103/ul Normal 0.3-0.8 [facility] Comment on above: Performed By: #### C BC #### [facility] [address] [place] [address] [address] Jean Zabala Monocytes/100 WBC (Bld) 6.1 % Normal 1.7-12.0 [facility] Comment on above: Performed By: #### C BC #### [facility] [address] [place] [address] Dr. Jean Zabala NEUT # 6.5 103/ul Normal 1.4-6.5 [facility] Comment on above: Performed By: #### C BC #### [facility] [address] [place] [address] Dr. Jean Zabala Neutrophils/100 WBC (Bld) 52.6 % Normal 43.0-75.0 [facility] Comment on above: Performed By: #### C BC #### [facility] [address] [place] [address] Dr. Jean Zabala Platelet mean volume (Bld) [Entitic vol] 13.1 fL Normal 9.5-13.5 [facility] Comment on above: Performed By: #### C BC #### [facility] [address] [place] [address] Dr. Jean Zabala PLT 187 103/ul Normal 150-450 [facility] Comment on above: Performed By: #### C BC #### [facility] [address] [place] [address] Dr. Jean Zabala RBC 6.24 106/ul Critically high 4.20-5.40 [facility] Comment on above: Performed By: #### C BC #### [facility] [address] [place] [address] Dr. Jean Zabala WBC 12.2 103/ul Critically high 4.0-11.0 [facility] Comment on above: Performed By: #### C BC #### [facility] [address] [place] [address] [address] Jean Zabala GLYCOHEMOGLOBIN A1Con 2021 ADA RECOMMENDATION SEE BELOW Normal [facility] Comment on above: Result Comment: ADA RECOMMENDED LIMIT 4.0 - 6.0 ADA THERAPEUTIC TARGET < 7.0 ACTION SUGGESTED > 7.0 Performed By: #### A 1C #### [facility] [address] [place] [address] [address] Jean Zabala Glucose [Mass/Vol] 269 mg/dL Normal [facility] Comment on above: Performed By: #### A 1C #### [facility] [address] [place] [address] Dr. Jean Zabala HbA1c (Bld) [Mass fraction] 11.0 % Critically high 4.5-6.2 [facility] Comment on above: Performed By: #### A 1C #### [facility] [address] [place] [address] Dr. Jean Zabala LIPID PROFILEon 03-10-2022 CHOL-HDL RATIO NORM SEE BELOW Normal [facility] Comment on above: Result Comment: 3.3 - 4.4 LOW RISK 4.4 - 7.1 AVERAGE RISK 7.1 - 11.0 MODERATE RISK >11.0 HIGH RISK Performed By: #### L IPID, CMP #### [facility] [address] [place] [address] Dr. Jean Zabala Cholesterol [Mass/Vol] 282 mg/dL Critically high <=200 [facility] Comment on above: Performed By: #### L IPID, CMP #### [facility] [address] [place] [address] Dr. Jean Zabala Cholesterol in HDL [Mass/Vol] 58 mg/dL Normal 40-60 [facility] Comment on above: Performed By: #### L IPID, CMP #### [facility] [address] [place] [address] [address] Jean Zabala Cholesterol in LDL [Mass/Vol] 199.2 mg/dL Normal [facility] Comment on above: Performed By: #### L IPID, CMP #### [facility] [address] [place] [address] [address] Jean Zabala Cholesterol.total/Cho lesterol in HDL [Mass ratio] 4.9 {ratio} Normal [facility] Comment on above: Performed By: #### L IPID, CMP #### [facility] [address] [place] [address] [address] Jean Zabala HDL NORMAL > or = 60 mg/dl - LO W CARDIOVASCULAR RISK <40 mg/dl - HIGH CARDIOVASCULAR RISK Normal [facility] Comment on above: Performed By: #### L IPID, CMP #### [facility] [address] [place] [address] [address] Jean aZbala LDL CALC NORMAL SEE BELOW Normal [facility] Comment on above: Result Comment: <100 mg/dl OPTIMAL 100 - 129 mg/dl NEAR OR ABOVE OPTIMAL 130 - 159 mg/dl BORDERLINE HIGH 160 - 189 mg/dl HIGH >190 mg/dl VERY HIGH Performed By: #### L IPID, CMP #### [facility] [address] [place] [address] [address] Jean Zabala Triglyceride [Mass/Vol] 124 mg/dL Normal <=150 [facility] Comment on above: Performed By: #### L IPID, CMP #### [facility] [address] [place] [address] [address] Jean Zabala VLDL CALC 24.8 mg/dL Normal [facility] Comment on above: Performed By: #### L IPID, CMP #### [facility] [address] [place] [address] [address] Jean Zabala MICROALBUMIN, RAND URon 02-20 mALB 5.8 mg/L Normal <=30.0 [facility] Comment on above: Performed By: #### M ALBR #### [facility] [address] [place] [address] [address] Jean Zabala PROF 14(COMP METB)on 022 Albumin [Mass/Vol] 3.6 g/dL Normal 3.4-5.0 [facility] Comment on above: Performed By: #### L IPID, CMP #### [facility] [address] [place] [address] [address] Jean Zabala Albumin/Globulin [Mass ratio] 0.9 {ratio} Normal [facility] Comment on above: Performed By: #### L IPID, CMP #### [facility] [address] [place] [address] [address] Jean Zabala ALP [Catalytic activity/Vol] 98 U/L Normal 46-116 [facility] Comment on above: Performed By: #### L IPID, CMP #### [facility] [address] [place] [address] [address] Jean Zabala ALT [Catalytic activity/Vol] 25 U/L Normal 14-59 [facility] Comment on above: Performed By: #### L IPID, CMP #### [facility] [address] [place] [address] [address] Jean Zabala Anion gap [Moles/Vol] 12.8 mmol/L Normal [facility] Comment on above: Performed By: #### L IPID, CMP #### [facility] [address] [place] [address] [address] Jean Zabala AST [Catalytic activity/Vol] 17 U/L Normal 15-37 [facility] Comment on above: Performed By: #### L IPID, CMP #### [facility] [address] [place] [address] [address] Jean Zabala Bilirubin [Mass/Vol] 0.4 mg/dL Normal 0.2-1.0 [facility] Comment on above: Performed By: #### L IPID, CMP #### [facility] [address] [place] [address] [address] Jean Zabala Calcium [Mass/Vol] 9.1 mg/dL Normal 8.5-10.1 [facility] Comment on above: Performed By: #### L IPID, CMP #### [facility] [address] [place] [address] [address] Jean Zabala Chloride [Moles/Vol] 100 mmol/L Normal 98-107 [facility] Comment on above: Performed By: #### L IPID, CMP #### [facility] [address] [place] [address] Dr. Jean Zabala CO2 [Moles/Vol] 27.2 mmol/L Normal 21.0-32.0 [facility] Comment on above: Performed By: #### L IPID, CMP #### [facility] [address] [place] [address] Dr. Jean Zabala Creatinine [Mass/Vol] 0.74 mg/dL Normal 0.55-1.02 [facility] Comment on above: Performed By: #### L IPID, CMP #### [facility] [address] [place] [address] Dr. Jean Zabala EGFR-AF MICRONESIAN >60 Normal >=60 [facility] Comment on above: Performed By: #### L IPID, CMP #### [facility] [address] [place] [address] Dr. Jean Zabala EGFR-NON AF MICRONESIAN >60 Normal >=60 [facility] Comment on above: Performed By: #### L IPID, CMP #### [facility] [address] [place] [address] Dr. Jean Zabala Globulin (S) [Mass/Vol] 3.8 g/dL Normal [facility] Comment on above: Performed By: #### L IPID, CMP #### [facility] [address] [place] [address] Dr. Jean Zabala Glucose [Mass/Vol] 279 mg/dL Critically high 74-106 [facility] Comment on above: Performed By: #### L IPID, CMP #### [facility] [address] [place] [address] Dr. Jean Zabala Potassium [Moles/Vol] 4.0 mmol/L Normal 3.5-5.1 [facility] Comment on above: Performed By: #### L IPID, CMP #### [facility] [address] [place] [address] Dr. Jean Zabala Protein [Mass/Vol] 7.4 g/dL Normal 6.4-8.2 [facility] Comment on above: Performed By: #### L IPID, CMP #### [facility] [address] [place] [address] Dr. Jean Zabala Sodium [Moles/Vol] 136 mmol/L Normal 136-145 [facility] Comment on above: Performed By: #### L IPID, CMP #### [facility] [address] [place] [address] Dr. Jean Zabala Urea nitrogen [Mass/Vol] 12.0 mg/dL Normal 7.0-18.0 [facility] Comment on above: Performed By: #### L IPID, CMP #### [facility] [address] [place] [address] Dr. Jean Zabala Urea nitrogen/Creatinine [Mass ratio] 16.2 mg/mg Normal [facility] Comment on above: Performed By: #### L IPID, CMP #### [facility] [address] [place] [address] Dr. Jean Zabala UA RANDOM W/MICROSCOPICon BACTERIA NONE SEEN Normal NONE SEEN [facility] Comment on above: Performed By: #### U AMIC #### [facility] [address] [place] [address] Dr. Jean Zabala Bilirubin Ql (U) Negative Normal NEGATIVE [facility] Comment on above: Performed By: #### U AMIC #### [facility] [address] [place] [address] Dr. Jean Zabala CAST NONE SEEN Normal NONE SEEN [facility] Comment on above: Performed By: #### U AMIC #### [facility] [address] [place] [address] Dr. Jean Zabala Clarity (U) SL CLOUDY Abnormal CLEAR [facility] Comment on above: Performed By: #### U AMIC #### [facility] [address] [place] [address] Dr. Jean Zabala Color (U) YELLOW Normal YELLOW [facility] Comment on above: Performed By: #### U AMIC #### [facility] [address] [place] [address] [address] Jean Zabala Crystals LM Nom (Urine sed) NONE SEEN Normal NONE SEEN [facility] Comment on above: Performed By: #### U AMIC #### [facility] [address] [place] [address] Dr. Jean Zabala Epithelial cells LM Ql (Urine sed) FEW Abnormal NONE SEEN /RARE [facility] Comment on above: Performed By: #### U AMIC #### [facility] [address] [place] [address] [address] Jean Zabala Glucose Ql (U) 500 mg/dl Abnormal NEGATIVE [facility] Comment on above: Performed By: #### U AMIC #### [facility] [address] [place] [address] Dr. Jean Zabala Hemoglobin Ql (U) Negative Normal NEGATIVE [facility] Comment on above: Performed By: #### U AMIC #### [facility] [address] [place] [address] Dr. Jean aZbala Ketones Ql (U) Negative Normal NEGATIVE [facility] Comment on above: Performed By: #### U AMIC #### [facility] [address] [place] [address] Dr. Jean Zabala LEUKOCYTES Negative Normal NEGATIVE [facility] Comment on above: Performed By: #### U AMIC #### [facility] [address] [place] [address] Dr. Jean Zabala MUCOUS NONE SEEN Normal NONE SEEN [facility] Comment on above: Performed By: #### U AMIC #### [facility] [address] [place] [address] Dr. Jean Zabala Nitrite Ql (U) Negative Normal NEGATIVE [facility] Comment on above: Performed By: #### U AMIC #### [facility] [address] [place] [address] Dr. Jean Zabala pH (U) 6.0 [pH] Normal 5-9 [facility] Comment on above: Performed By: #### U AMIC #### [facility] [address] [place] [address] Dr. Jean Zabala RBC NONE SEEN Abnormal 0-2 [facility] Comment on above: Performed By: #### U AMIC #### [facility] [address] [place] [address] [address] Jean Zabala SPEC GRAVITY 1.025 Normal 1.005-<=1.025 [facility] Comment on above: Performed By: #### U AMIC #### [facility] [address] [place] [address] [address] Jean Zabala UA PROTEIN TRACE Normal NEGATIVE/ TRACE [facility] Comment on above: Performed By: #### U AMIC #### [facility] [address] [place] [address] [address] Jean Zabala Urobilinogen Qn (U) 0.2 {Zuhair'U}/dL Normal 0.2 - 1. 0 [facility] Comment on above: Performed By: #### U AMIC #### [facility] [address] [place] [address] [address] Jean Zabala WBC 0-2 Abnormal NONE SEEN [facility] Comment on above: Performed By: #### U AMIC #### [facility] [address] [address] [address] Jean Zabala Vital Signs Date Time Vital Sign Value Performing Clinician Facility 07-18-2024 09:28-0500 Body height 160 cm Renee Blount HVAC CONTROLS TECHNICIAN Work Phone: [facility] 07-18-2024 09:28-0500 Body mass index (BMI) [Ratio] 31.14 kg/m2 Renee Blount HVAC CONTROLS TECHNICIAN Work Phone: [facility] 07-18-2024 09:28-0500 Body temperature 98.6 [degF] Renee Blount HVAC CONTROLS TECHNICIAN Work Phone: [facility] 07-18-2024 09:28-0500 Body weight 79.74 kg Renee Blount HVAC CONTROLS TECHNICIAN Work Phone: [facility] 07-18-2024 09:28-0500 Diastolic blood pressure 78 mm[Hg] Renee Blount HVAC CONTROLS TECHNICIAN Work Phone: [facility] 07-18-2024 09:28-0500 Heart rate 88 /min Renee Blount HVAC CONTROLS TECHNICIAN Work Phone: [facility] 07-18-2024 09:28-0500 Respiratory rate 18 /min Renee Blount HVAC CONTROLS TECHNICIAN Work Phone: [facility] 07-18-2024 09:28-0500 SaO2% (BldA) [Mass fraction] 93 % Renee Blount HVAC CONTROLS TECHNICIAN Work Phone: [facility] 07-18-2024 09:28-0500 Systolic blood pressure 104 mm[Hg] Renee Maryz HVAC CONTROLS TECHNICIAN Work Phone: [facility] 06-13-2024 14:19-0400 Body height 157.5 cm Ray Cedeñom DO Work Phone: [facility] 06-13-2024 14:19-0400 Body mass index (BMI) [Ratio] 34.5 kg/m2 Ray Cedeñom DO Work Phone: [facility] 06-13-2024 14:19-0400 Body temperature 97.9 [degF] Ray Cedeñom DO Work Phone: [facility] 06-13-2024 14:19-0400 Body weight 85.55 kg Ray Cedeñom DO Work Phone: [facility] 06-12-2024 14:18-0400 Body height 160 cm Renee Blount HVAC CONTROLS TECHNICIAN Work Phone: [facility] 06-12-2024 14:18-0400 Body mass index (BMI) [Ratio] 32.91 kg/m2 Renee Maryz HVAC CONTROLS TECHNICIAN Work Phone: [facility] 06-12-2024 14:18-0400 Body temperature 97.2 [degF] Renee Maryz HVAC CONTROLS TECHNICIAN Work Phone: [facility] 06-12-2024 14:18-0400 Body weight 84.28 kg Renee Blount HVAC CONTROLS TECHNICIAN Work Phone: [facility] 06-12-2024 14:18-0400 Diastolic blood pressure 76 mm[Hg] Renee Blount HVAC CONTROLS TECHNICIAN Work Phone: [facility] 06-12-2024 14:18-0400 Heart rate 105 /min Renee Blount HVAC CONTROLS TECHNICIAN Work Phone: [facility] 06-12-2024 14:18-0400 Respiratory rate 18 /min Renee Blount HVAC CONTROLS TECHNICIAN Work Phone: [facility] 06-12-2024 14:18-0400 SaO2% (BldA) [Mass fraction] 93 % Renee Blount HVAC CONTROLS TECHNICIAN Work Phone: [facility] 06-12-2024 14:18-0400 Systolic blood pressure 130 mm[Hg] Renee Blount HVAC CONTROLS TECHNICIAN Work Phone: [facility] 05-02-2024 09:01-0400 Body height 157.5 cm Ray Mello DO Work Phone: [facility] 05-02-2024 09:01-0400 Body mass index (BMI) [Ratio] 33.87 kg/m2 Ray Mello DO Work Phone: [facility] 05-02-2024 09:01-0400 Body temperature 97.59 [degF] Ray Mello DO Work Phone: [facility] 05-02-2024 09:01-0400 Body weight 84.01 kg Ray Mello DO Work Phone: [facility] 04-10-2024 15:09-0400 Body height 157.5 cm Oleg LUNDBERG Work Phone: [facility] 04-10-2024 15:09-0400 Body mass index (BMI) [Ratio] 33.65 kg/m2 Oleg LUNDBERG Work Phone: [facility] 04-10-2024 15:09-0400 Body temperature 96.91 [degF] Oleg Matthewner PA Work Phone: [facility] [employer] [facility] 04-10-2024 15:09-0400 Body weight 83.46 kg Oleg Matthewner PA Work Phone: [facility] 04-10-2024 15:09-0400 Diastolic blood pressure 72 mm[Hg] Oleg Bryson PA Work Phone: [facility] 04-10-2024 15:09-0400 Heart rate 96 /min Oleg Bryson PA Work Phone: [facility] [employer] [facility] 04-10-2024 15:09-0400 Respiratory rate 20 /min Oleg Bryson PA Work Phone: [facility] 04-10-2024 15:09-0400 SaO2% (BldA) [Mass fraction] 96 % Oleg Bryson PA Work Phone: [facility] 04-10-2024 15:09-0400 Systolic blood pressure 144 mm[Hg] Oleg Matthewner PA Work Phone: [facility] 03-28-2024 10:31-0400 Body height 157.5 cm Ray Cedeñom DO Work Phone: [facility] 03-28-2024 10:31-0400 Body mass index (BMI) [Ratio] 34.57 kg/m2 Ray Riehm DO Work Phone: [facility] 03-28-2024 10:31-0400 Body weight 85.73 kg Ray Philehm DO Work Phone: [facility] 02-08-2024 09:52-0400 Body height 157.5 cm Ray Riehm DO Work Phone: [facility] 02-08-2024 09:52-0400 Body mass index (BMI) [Ratio] 34.57 kg/m2 Ray Riehm DO Work Phone: [facility] 02-08-2024 09:52-0400 Body temperature 97.3 [degF] Ray Mello DO Work Phone: [facility] 02-08-2024 09:52-0400 Body weight 85.73 kg Ray Mello DO Work Phone: [facility] Encounters Encounter Date Encounter Type Care Provider Facility Start: 07-18-2024 End: 07-18-2024 Bamboo flowsheet Renee Aichholz HVAC CONTROLS TECHNICIAN Work Phone: [facility] Start: 07-18-2024 End: 07-18-2024 Bamboo flowsheet Renee Aichholz HVAC CONTROLS TECHNICIAN Work Phone: [facility] Start: 07-18-2024 End: 07-18-2024 Office outpatient visit 25 minutes Renee Aichhoracioz HVAC CONTROLS TECHNICIAN Work Phone: [facility] Comment on above: Type 2 diabetes ash itus without complication, with long-term current use of insulin (CMS/[facility]) (Primary Dx); Primary hypertension (CMS/[facility]); Obesity (BMI 30-39.9); Tobacco user; Chronic obstructive pulmonary disease, unspecified COPD type (CMS/HCC); Asthma, unspecified asthma severity, unspecified whether complicated, unspecified whether persistent (CMS/HCC) Start: 07-05-2024 End: 07-05-2024 Refill Renee Aichholz HVAC CONTROLS TECHNICIAN Work Phone: [facility] Comment on above: Type 2 diabetes ash itus without complication, with long-term current use of insulin (CMS/HCC) Start: 06-13-2024 ambulatory RAY MELLO [facility] Start: 06-13-2024 End: 06-13-2024 Office outpatient visit 25 minutes Ray Mello DO Work Phone: [facility] Comment on above: Acute pain of left k nee (Primary Dx) Start: 06-12-2024 End: 06-12-2024 Bamboo flowsheet Renee Aichholz HVAC CONTROLS TECHNICIAN Work Phone: [facility] Start: 06-12-2024 End: 06-12-2024 Bamboo flowsheet Renee Blount NP Work Phone: [facility] Start: 06-12-2024 End: 06-12-2024 Office outpatient visit 25 minutes Renee Blount NP Work Phone: [facility] Comment on above: Type 2 [...] (BMI 30-39.9) Start: 06-07-2024 [facility] Start: 06-02-2024 ambulatory RENEE MINE [facility] Start: 06-02-2024 End: 06-02-2024 Subsequent hospital visit by physician Ray Mello DO Work Phone: [facility] Comment on above: Arrived Start: 05-28-2024 End: 05-28-2024 Orders Only Renee Blount NP Work Phone: [facility] Comment on above: Primary hypertension (CMS/HCC) (Primary Dx); Type 2 diabetes mellitus without complication, with long-term current use of insulin (CMS/HCC); Mixed hyperlipidemia (CMS/HCC); Tobacco user; Obesity (BMI 30-39.9) Start: 05-02-2024 End: 05-02-2024 Office outpatient visit 25 minutes Ray Mello DO Work Phone: [facility] Comment on above: Nondisplaced fractur e of fifth metatarsal bone, left foot, initial encounter for closed fracture (Primary Dx); Left foot pain; Neck pain; Arm paresthesia, right Start: 05-02-2024 End: 05-02-2024 Subsequent hospital visit by physician Ray Mello DO Work Phone: [facility] Start: 05-02-2024 ambulatory RAY Quinterosta [facility] Start: 04-10-2024 End: 04-10-2024 Office outpatient visit 15 minutes Oleg LUNDBERG Work Phone: [facility] Comment on above: Neck muscle spasm (P rimary Dx) Start: 04-10-2024 [facility] Start: 03-28-2024 ambulatory RAY Estevez [facility] Start: 03-28-2024 End: 03-28-2024 Office outpatient visit 25 minutes Ray Mello DO Work Phone: [facility] Comment on above: Left foot pain (Prim inna Dx) Start: 03-28-2024 End: 03-28-2024 Subsequent hospital visit by physician Ray Mello DO Work Phone: [facility] Start: 02-08-2024 End: 02-08-2024 Office outpatient new 45 minutes Ray Mello DO Work Phone: [facility] Comment on above: Left foot pain (Prim inna Dx); Nondisplaced fracture of fifth metatarsal bone, left foot, initial encounter for closed fracture Start: 02-08-2024 End: 02-08-2024 Subsequent hospital visit by physician Ray Mello DO Work Phone: [facility] Start: 02-08-2024 ambulatory RAY Estevez [facility] Start: 01-09-2024 End: 01-09-2024 ambulatory SHAIKH NIURKA Not Available Start: 10-17-2023 ambulatory [facility] Start: 10-17-2023 Encounter for other specified special examinations [facility] Start: 09-28-2023 Refill Renee Shannenramanakathy HVAC CONTROLS TECHNICIAN Work Phone: [facility] Comment on above: Type 2 diabetes ash itus without complication, with long-term current use of insulin ([facility]) (Primary Dx); Episode of recurrent major depressive disorder, unspecified depression episode severity ([facility]); Chronic obstructive pulmonary disease, unspecified COPD type ([facility]); Asthma, unspecified asthma severity, unspecified whether complicated, unspecified whether persistent ([facility]) Start: 04-13-2022 End: 04-13-2022 ambulatory WEB PROGRAMMER RENEE HURTADOKATHY Facility:[facility] Start: 03-10-2022 End: 03-11-2022 ambulatory WEB PROGRAMMER RENEE SHANNENRamanaKATHY Facility: Procedures Date Procedure Procedure Detail Performing Clinician Start: 05-11-2023 Mammography Renee Abdullahi kim HVAC CONTROLS TECHNICIAN Work Phone: Start: 03-29-2023 Lipid 1996 panel - S leonel or Plasma Ray Mello DO Work Phone: Start: 11-11-2015 Microscopic observat ion [Identifier] in Cervix by Cyto stain Renee Mine HVAC CONTROLS TECHNICIAN Work Phone: Plan of Treatment Date Care Activity Detail Author Start: 03-29-2028 Lipid panel [facility]IPID SCREENING [facility] Start: 06-07-2025 Lipid panel LIPIDS [facility] Start: 06-07-2025 Urine screening for protein [facility] Start: 02-18-2025 Influenza vaccination Influenza Vacc ine (#1) [facility] Comment on above: Postponed from 04/22 (Patient Refused) Start: 02-17-2025 Glaucoma screening Diabetes: R etinopathy Screening [facility] Start: 12-06-2024 Hemoglobin A1c measurement HBA1C TEST [facility] Start: 09-07-2024 Hemoglobin A1c measurement Diabetes: Hemoglobin A1C [facility] Start: 08-06-2024 End: 08-06-2024 Patient encounter procedure 08/06/2024 10:30 AM EST Office Visit [facility] [address] [place], [place] [id number] Ray Mello DO [address] [place] [id number] [facility] Start: 07-18-2024 End: 07-18-2025 Basic metabolic 1998 panel - Serum or Plasma Basic metabolic panel Lab Routine Type 2 diabetes mellitus without complication, with long-term current use of insulin (CMS/HCC) Expected: 07/18/2024 (Approximate), Expires: 07/18/2025 [facility] [employer] Work Phone: Comment on above: Expected: 07/18/2024 (Approximate), Expires: 07/18/2025 Start: 07-18-2024 End: 07-18-2024 Patient encounter procedure 07/18/2024 9:20 AM EST Office Visit [facility] [address] [place] [id number] Renee Blount NP [address] [place] [id number] [facility] Start: 06-12-2024 End: 08-12-2025 MG Breast - bilateral Screening Bilateral screening mammogram Imaging Routine Encounter for screening mammogram for malignant neoplasm of breast Expected: 06/12/2024 (Approximate), Expires: 08/12/2025 [facility] [employer] Work Phone: Comment on above: Expected: 06/12/2024 (Approximate), Expires: 08/12/2025 Start: 05-28-2024 End: 05-28-2025 CBC W Auto Differential panel - Blood CBC and differential Lab Routine Tobacco user Expected: 05/28/2024 (Approximate), Expires: 05/28/2025 [facility] [employer] Work Phone: Comment on above: Expected: 05/28/2024 (Approximate), Expires: 05/28/2025 Start: 05-28-2024 End: 05-28-2025 Comprehensive metabolic 2000 panel - Serum or Plasma Comprehensive metabolic panel Lab Routine Primary hypertension (CMS/HCC) Type 2 diabetes mellitus without complication, with long-term current use of insulin (CMS/HCC) Mixed hyperlipidemia (CMS/HCC) Expected: 05/28/2024 (Approximate), Expires: 05/28/2025 [facility] Comment on above: Expected: 05/28/2024 (Approximate), Expires: 05/28/2025 Start: 05-28-2024 End: 05-28-2025 Hemoglobin A1c/Hemoglobin.total in Blood Hemoglobin A1c Lab Routine Type 2 diabetes mellitus without complication, with long-term current use of insulin ([facility]) Expected: 05/28/2024 (Approximate), Expires: 05/28/2025 [facility] Comment on above: Expected: 05/28/2024 (Approximate), Expires: 05/28/2025 Start: 05-28-2024 End: 05-28-2025 Lipid 1996 panel - Serum or Plasma Lipid panel Lab Routine Mixed hyperlipidemia ([facility]) Expected: 05/28/2024 (Approximate), Expires: 05/28/2025 [facility] Comment on above: Expected: 05/28/2024 (Approximate), Expires: 05/28/2025 Start: 05-28-2024 End: 05-28-2025 Microalbumin/Creatinine panel in random Urine Microalbumin / creatinine, urine ratio Lab Routine Primary hypertension ([facility]) Type 2 diabetes mellitus without complication, with long-term current use of insulin ([facility]) Expected: 05/28/2024 (Approximate), Expires: 05/28/2025 [facility] Comment on above: Expected: 05/28/2024 (Approximate), Expires: 05/28/2025 Start: 05-28-2024 End: 05-28-2025 Thyrotropin [Units/volume] in Serum or Plasma TSH Lab Routine Obesity (BMI 30-39.9) Expected: 05/28/2024 (Approximate), Expires: 05/28/2025 [facility] Comment on above: Expected: 05/28/2024 (Approximate), Expires: 05/28/2025 Start: 05-28-2024 End: 05-28-2025 Thyroxine (T4) free [Mass/volume] in Serum or Plasma T4, free Lab Routine Obesity (BMI 30-39.9) Expected: 05/28/2024 (Approximate), Expires: 05/28/2025 [facility] Comment on above: Expected: 05/28/2024 (Approximate), Expires: 05/28/2025 Start: 05-28-2024 End: 05-28-2025 Urinalysis complete panel - Urine Urinalysis with reflex microscopic (clean catch) Lab Routine Primary hypertension (CMS/HCC) Type 2 diabetes mellitus without complication, with long-term current use of insulin (CMS/HCC) Expected: 05/28/2024 (Approximate), Expires: 05/28/2025 [facility] Comment on above: Expected: 05/28/2024 (Approximate), Expires: 05/28/2025 Start: 05-11-2024 Screening for malign ant neoplasm of breast Mammogram [facility] Start: 05-02-2024 End: 05-02-2025 MR Foot - left WO contrast MRI FOOT LEFT WITHOUT CONTRAST Imaging Routine Nondisplaced fracture of fifth metatarsal bone, left foot, initial encounter for closed fracture Expected: 05/02/2024, Expires: 05/02/2025 [facility] Comment on above: Expected: 05/02/2024 , Expires: 05/02/2025 Start: 05-02-2024 End: 05-29-2024 XR Foot - left 3 Views [facility] Comment on above: Expected: 05/02/2024 , Expires: 05/29/2024 1 Occurrences starti ng 05/02/2024 until 05/02/2024 Start: 05-02-2024 End: 05-02-2024 Patient encounter procedure [facility] Start: 04-22-2024 COVID-19 VACCINE ( season) COVID-19 VACCINE () [facility] Start: 04-22-2024 Influenza vaccination [facility] Start: 04-16-2024 Hemoglobin A1c measurement HBA1C TEST [facility] Start: 04-14-2024 Urine screening for protein Diabetes: Urine Protein Screening [facility] Start: 03-29-2024 Lipid panel LIPIDS [facility] Start: 03-07-2024 End: 03-07-2024 Patient encounter procedure 03/07/2024 8:15 AM EDT Office Visit [facility] [address] [place] [id number] Ray Mello, DO [address] [place] [address] [facility] Start: 02-08-2024 End: 03-06-2024 XR Foot - left 3 Views [facility] Comment on above: Expected: 02/08/2024 , Expires: 03/06/2024 1 Occurrences starti ng 02/08/2024 until 02/08/2024 Start: 01-15-2024 Hemoglobin A1c measurement Diabetes: Hemoglobin A1C [facility] Start: 09-28-2023 End: 09-28-2024 Basic metabolic 1998 panel - Serum or Plasma Basic metabolic panel Lab Routine Type 2 diabetes mellitus without complication, with long-term current use of insulin (CMS/HCC) Expected: 09/28/2023 (Approximate), Expires: 09/28/2024 [facility] Work Phone: Comment on above: Expected: 09/28/2023 (Approximate), Expires: 09/28/2024 Start: 09-28-2023 End: 09-28-2024 Hemoglobin A1c measurement Hemoglobin A1c Lab Routine Type 2 diabetes mellitus without complication, with long-term current use of insulin (CMS/HCC) Expected: 09/28/2023 (Approximate), Expires: 09/28/2024 [facility] Comment on above: Expected: 09/28/2023 (Approximate), Expires: 09/28/2024 Start: 07-14-2023 Hemoglobin A1c measurement Diabetes: Hemoglobin A1C [facility] Start: 04-22-2023 COVID-19 VACCINE ( season) COVID-19 VACCINE ( season) [facility] Start: 04-22-2023 Influenza vaccination Influenza Vacc ine (#1) [facility] Start: 11-10-2018 Screening for malign ant neoplasm of cervix [facility] Start: 2018 Screening for malign ant neoplasm of lung LUNG CANCER SCREENING [facility] Start: 2018 Zoster vaccine hzv l oren for subcutaneous use ZOSTER (SHINGLES) VACCINE (1 of 2) [facility] Start: 2013 Screening for malign ant neoplasm of colon COLORECTAL CANCER SCREENING DISCUSSION [facility] Start: 2008 Screening for malign ant neoplasm of breast MAMMOGRAM SCREENING DISCUSSION [facility] Start: 1998 Screening for malign ant neoplasm of cervix HPV/Cotest [facility] Start: 1989 Screening for malign ant neoplasm of cervix CERVICAL CANCER SCREENING DISCUSSION [facility] Start: 1987 Hepatitis B vaccination HEP B VACCINE (1 of 3 - 19+ 3-dose series) [facility] Start: 1987 Third diphtheria, tetanus and acellular pertussis (DTaP) vaccination TDAP (ADULT) [facility] Start: 1983 HIV screening HIV SCREENING DISCUSSI ON [facility] Start: 1974 PNEUMOCOCCAL VACCINE SERIES (1 of 2 - PCV) PNEUMOCOCCAL VACCINE SERIES (1 of 2 - PCV) [facility] Start: 1968 Diabetic foot examination DIABETIC FOOT EXAM [facility] Start: 1968 Glaucoma screening EYE EXAM [facility] Start: 1968 Hepatitis C screening HEPATITI S C VIRUS SCREENING [facility] Start: [address] 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 2020 Medicaid (Managed Care) [facility] MEDICAID [id number] 2020 Unknown [facility] [id number] 2020-Present [address] [place] [address] [id number] 1968 Unknown [id number] [id number]. 593 1968 Unknown [id number] 2.16.840.1.225272.3.579.2. 593 1968 Unknown [id number] 2.16.840.1.519024.3.579.2. 1259 1968 Unknown [id number] 2.16.840.1.380548.3.579.2. 983 1968 Unknown [id number] 2.16.840.1.028591.3.579.2. 983 1968 Unknown [id number] 2.16.840.1.698640.3.579.2. 983 1968 Unknown [id number] 2.16.840.1.726376.3.579.2. 983 1968 Unknown [id number] 2.16.840.1.907245.3.579.2. 983 1968 Unknown [id number] 2.16.840.1.028114.3.579.2. 983 1968 Unknown [id number] 2.16.840.1.605068.3.579.2. 983 1968 Unknown [id number] 2.16.840.1.973399.3.579.2. 983 1968 Unknown [id number] 2.16.840.1.415208.3.579.2. 983 1968 Unknown [id number] 2.16.840.1.250080.3.579.2. 983 1968 Unknown [id number] 2.16.840.1.090713.3.579.2. 983 1968 Unknown [id number] 2.16.840.1.028271.3.579.2. 983 1968 Unknown [id number] [id number]. 983 1959 Unknown [id number] Social History Date Type Detail Facility Start: 07-20-2023 End: 01-09-2024 Tobacco smoking status ALIS Smokes tobacco daily [facility] Start: 08-22-1993 History of tobacco use Cigarette Smo ker [facility] Start: 07-20-2023 End: 06-11-2024 Cigarettes smoked current (pack per day) - Reported 1 [facility] Start: 07-20-2023 End: 06-11-2024 Tobacco use panel [facility] Start: 1970 Sex Assigned At Not on file [facility] Start: 01-09-2024 End: 02-08-2024 Tobacco use and exposure Smokeless tobacco non-user [facility] Start: 02-08-2024 End: 06-13-2024 Alcoholic beverage intake Ex-drinker (finding) [facility] History of tobacco use Passive smoker [facility] Start: 01-09-2024 End: 07-18-2024 Alcoholic beverage intake Lifetime non-drinker (finding) [facility] How often do you nee d to have someone help you when you read instructions, pamphlets, or other written material from your doctor or pharmacy [SILS] Never [facility] Do you belong to any clubs or organizations such as jehovah's witness groups, unions, fraternal or athletic groups, or [...] Equipment Original Text Equi pment Identifier Dates [id number] 1 Lancet in the morning and 1 Lancet before bedtime. [id number] Clinical Notes 02-08-2024 to 07-18-2024 Renee Blount [...] (LIPITOR) 40 mg, Oral, Nightly Continuous Glucose Administrative Sales Assistant (Dexcom G7 Administrative Sales Assistant) device 1 each, Does not apply, Daily [...] HISTORY Past Medical History: Diagnosis Date Asthma ([facility]) 09/28/2023 COPD (chronic obstructive pulmonary disease) ([facility]) 09/28/2023 Depression ([facility]) 09/28/2023 Gastritis GERD (gastroesophageal reflux disease) 09/28/2023 History of hernia repair HTN (hypertension) ([facility]) 09/28/2023 Hyperlipidemia ([facility]) 09/28/2023 Hyponatremia Insomnia 09/28/2023 Non compliance w medication regimen Non-compliance RUQ pain Tobacco user 09/28/2023 Type 2 diabetes mellitus without complication, with long-term current use of insulin ([facility]) 07/27/2023 Past Surgical History: Procedure Laterality Date [...] complication, with long-term current use of insulin ([facility]) - Primary Restarted meds at last visit, [...] Relevant Orders Basic metabolic panel HTN (hypertension) ([facility]) Is compliant with meds now, labs are stable Please check blood pressure daily and record DASH diet Limit caffeine Take medication as directed Contact office if chest pain, pressure, dizziness, shortness of breath, swelling legs Recommend slow position changes Relevant Medications aspirin 81 MG chewable tablet COPD (chronic obstructive pulmonary disease) ([facility]) Continue ICS/LABA Recommend quitting smoking Relevant Medications Fluticasone-Salmeterol (Advair Diskus) 250-50 MCG/ACT aerosol powder Asthma ([facility]) Stable, continue current meds Quit smoking Relevant Medications Fluticasone-Salmeterol (Advair Diskus) 250-50 MCG/ACT aerosol powder Tobacco user The patient has been advised of the risks of continued smoking: stroke, NV, all forms of cancer, lung disease, and [...] of the risks of continued smoking: stroke, NV, all forms of cancer, lung disease, and [...] complication, with long-term current use of insulin ([facility]) Restarted meds at last visit, is compliant [...] 30 units daily Associated Problem(s): HTN (hypertension) (CMS/[facility]) Is compliant with meds now, labs are stable Please check blood pressure daily and record DASH diet Limit caffeine Take medication as directed Contact office if chest pain, pressure, dizziness, shortness of breath, swelling legs Recommend slow position changes documented in this encounter [facility] 07-18-2024 Instructions Renee Blount NP - 07/18/2024 9:20 AM EST Lower dose of insulin to 30 units daily Labs need checked Get mammogram Schedule PAP Also check with pharmacy about getting a pneumonia shot documented in this encounter [facility] 06-13-2024 History of Presen t illness Narrative [...] of medical history 4 Review of medical transcription or sales trainer note 4 Independently obtain and review medical history and history of present illness with patient 4 Other counseling and coordination of care 7 Updating patient chart, documentation of clinical encounter and signing of orders 7 *Portions of this note may have been created with [email or web address], other software, or a scribe, which leads to grammatical and typographical errors which are not financial service representative of the intent with my spoken [...] of medical history 4 Review of medical transcription or sales trainer note 4 Independently obtain and review medical history and history of present illness with patient 4 Other counseling and coordination of care 7 Updating patient chart, documentation of clinical encounter and signing of orders 7 *Portions of this note may have been created with [email or web address], other software, or a scribe, which leads to grammatical and typographical errors which are not financial service representative of the intent with my spoken words. Clinical restaurant assistant/AT/MA was acting as a scribe today [...] Ray Mello DO documented in this encounter [facility] 06-12-2024 History of Presen t illness Narrative Associated Problem(s): Hyperlipidemia (CMS/HCC) Restart statin Associated Problem(s): Tobacco user The patient has been advised of the risks of continued smoking: stroke, NV, all forms of cancer, lung disease, and [...] twice a day Associated Problem(s): HTN (hypertension) ([facility] [facility]) Stable, out of meds for some time Restart BP pill Associated Problem(s): Asthma ([facility]) Stable, continue current meds Quit smoking Associated Problem(s): COPD (chronic obstructive pulmonary disease) ([facility]) Continue ICS/LABA Recommend quitting smoking Associated Problem(s): Insomnia Continue trazodone Pt was seen in december, she was supposed to have a referral for podiatry. Pt had never received call from referral and made her own appt [facility]. They performed xrays every month with [...] HISTORY Past Medical History: Diagnosis Date Asthma ([facility]) 09/28/2023 COPD (chronic obstructive pulmonary disease) ([facility]) 09/28/2023 Depression ([facility]) 09/28/2023 Gastritis GERD (gastroesophageal reflux disease) 09/28/2023 History of hernia repair HTN (hypertension) ([facility]) 09/28/2023 Hyperlipidemia ([facility]) 09/28/2023 Hyponatremia Insomnia 09/28/2023 Non compliance w medication regimen Non-compliance RUQ pain Tobacco user 09/28/2023 Type 2 diabetes mellitus without complication, with long-term current use of insulin ([facility]) 07/27/2023 Past Surgical History: Procedure Laterality Date [...] complication, with long-term current use of insulin ([facility]) - Primary Will trial DEXCOM 7 system Restart meds, metformin daily for 5 days, then increase to 1 pill twice a day Relevant Medications dapagliflozin (Farxiga) 10 MG metFORMIN (Glucophage) 1000 MG tablet insulin glargine (Lantus) 100 UNIT/ML injection Continuous Glucose Administrative Sales Assistant (Dexcom G7 Administrative Sales Assistant) device Continuous Glucose Sensor (Dexcom G7 Sensor) misc HTN (hypertension) ([facility]) Stable, out of meds for some time Restart BP pill Relevant Medications lisinopril 20 MG tablet COPD (chronic obstructive pulmonary disease) ([facility]) Continue ICS/LABA Recommend quitting smoking Relevant Medications Fluticasone-Salmeterol (Advair Diskus) 250-50 MCG/ACT aerosol powder montelukast (Singulair) 10 MG tablet Insomnia Continue trazodone Relevant Medications traZODone (Desyrel) 150 MG tablet Asthma ([facility]) Stable, continue current meds Quit smoking Relevant Medications Fluticasone-Salmeterol (Advair Diskus) 250-50 MCG/ACT aerosol powder Tobacco user The patient has been advised of the risks of continued smoking: stroke, NV, all forms of cancer, lung disease, and . Options for quitting smoking include: cold turkey, hypnosis, acupuncture, nicotine replacement meds (gum, lozenges, and patches), Buproprion, and Varenicline. At this time pt is encouraged to evaluate their goals for wanting to quit smoking, and reach out to provider when ready to start this process Hyperlipidemia ([facility]) Restart statin Relevant Medications atorvastatin (Lipitor) 40 MG tablet Depression ([facility]) Relevant Medications FLUoxetine (PROzac) 20 MG capsule Obesity (BMI 30-39.9) Encounter for screening mammogram for malignant neoplasm of breast Relevant Orders Bilateral screening mammogram documented in this encounter [facility] 06-12-2024 Instructions Renee Blount NP - 06/12/2024 2:00 PM EDT Restart metfromin 1000mg once a day for 5-7 days, then increase to twice a day with meals Fu in 4 weeks documented in this encounter [facility] 05-02-2024 History of Presen t illness Narrative [...] will see the patient back for a [id number] encounter to review results, re-evaluate as needed [...] of medical history 4 Review of medical transcription or sales trainer note 4 Independently obtain and review medical history and history of present illness with patient 4 Other counseling and coordination of care 7 Updating patient chart, documentation of clinical encounter and signing of orders 7 *Portions of this note may have been created with [email or web address] or other software which leads to grammatical and typographical errors which are not financial service representative of the intent with my spoken [...] neck pain and R UE symptoms. Recent [facility] note reviewed where she was seen for [...] will see the patient back for a [id number] encounter to review results, re-evaluate as needed [...] of medical history 4 Review of medical transcription or sales trainer note 4 Independently obtain and review medical history and history of present illness with patient 4 Other counseling and coordination of care 7 Updating patient chart, documentation of clinical encounter and signing of orders 7 *Portions of this note may have been created with [email or web address] or other software which leads to grammatical and typographical errors which are not financial service representative of the intent with my spoken words. Clinical restaurant assistant/AT/MA was acting as a scribe today [...] Ray Mello DO documented in this encounter [facility] 04-10-2024 History of Presen t illness [...] TOÑO Palomares 04/10/2024 documented in this encounter [facility] 03-28-2024 History of Presen t illness [...] of medical history 4 Review of medical transcription or sales trainer note 4 Independently obtain and review medical history and history of present illness with patient 4 Other counseling and coordination of care 7 Updating patient chart, documentation of clinical encounter and signing of orders 7 *Portions of this note may have been created with [employer] or other software which leads to grammatical and typographical errors which are not financial service representative of the intent with my spoken words. documented in this encounter [facility] 02-08-2024 History of Presen t illness [...] of medical history 4 Review of medical transcription or sales trainer note 4 Independently obtain and review [...] this note may have been created with [employer] or other software which leads to grammatical and typographical errors which are not financial service representative of the intent with my spoken words. Chief Complaint Patient presents with Left Foot - Pain Pain Frequency: constant Pain Quality: throbbing, burning, dull, aching Factors That Aggravate Pain: movement, activity, positioning, exertion, physical Factors That Relieve Pain: rest, relaxation, repositioning, immobilization, cold, medications, over the counter (OTC) Seen at [facility] and outside records reviewed. Found to have [...] weeks with repeat x-ray at that time. ([id number]) Bilateral foot and ankle examined today. INSPECTION: [...] of medical history 4 Review of medical transcription or sales trainer note 4 Independently obtain and review medical history and history of present illness with patient 4 Other counseling and coordination of care 7 Updating patient chart, documentation of clinical encounter and signing of orders 7 *Portions of this note may have been created with [employer] or other software which leads to grammatical and typographical errors which are not financial service representative of the intent with my spoken words. Clinical restaurant assistant/AT/ANISHA was acting as a scribe today [...] Ray Mello DO documented in this encounter [facility] Evaluation note Diagnosis Type 2 diabetes mellitus without complication, with long-term current use of insulin ([facility])- Primary Episode of recurrent major depressive disorder, unspecified depression episode severity (CMS/HCC) Chronic obstructive pulmonary disease, unspecified COPD type (CMS/HCC) Asthma, unspecified asthma severity, unspecified whether complicated, unspecified whether persistent ([facility]) documented in this encounter [facility] HealthcareEvaluation note* Diagnosis Left foot pain- Primary Pain in limb Nondisplaced fracture of fifth metatarsal bone, left foot, initial encounter for closed fracture [facility] Diagnosis Left foot pain Pain in limb [facility] Diagnosis Left foot pain- Primary Pain in limb [facility] Diagnosis Neck muscle spasm- Primary Spasm of muscle [facility] Diagnosis Nondisplaced fracture of fifth metatarsal bone, left foot, initial encounter for closed fracture- Primary Left foot pain Pain in limb Neck pain Cervicalgia Arm paresthesia, right Disturbance of skin sensation [facility] Diagnosis Left foot pain Pain in limb [facility] Diagnosis Primary hypertension (CMS/HCC)- Primary Unspecified essential hypertension Type 2 diabetes mellitus without complication, with long-term current use of insulin ([facility]) Mixed hyperlipidemia ([facility]) Mixed hyperlipidemia Tobacco user Tobacco use disorder Obesity (BMI 30-39.9) documented in this encounter [facility] note* Diagnosis Nondisplaced fracture of fifth metatarsal bone, left foot, initial encounter for closed fracture [facility] Diagnosis Type 2 diabetes mellitus without complication, with long-term current use of insulin ([facility])- Primary Encounter for screening mammogram for malignant [...] Obesity (BMI 30-39.9) documented in this encounter [facility]* Diagnosis Acute pain of left knee- Primary [facility] Diagnosis Type 2 diabetes mellitus without complication, with long-term current use of insulin ([facility])- Primary Encounter for screening mammogram for malignant [...] complication, with long-term current use of insulin ([facility]) documented in this encounter [facility] note* Diagnosis Type 2 diabetes mellitus without complication, with long-term current use of insulin ([facility])- Primary Encounter for screening mammogram for malignant [...] complication, with long-term current use of insulin ([facility])- Primary Primary hypertension (CMS/HCC) Unspecified essential hypertension Obesity (BMI 30-39.9) Tobacco user Tobacco use disorder Chronic obstructive pulmonary disease, unspecified COPD type (CMS/HCC) Asthma, unspecified asthma severity, unspecified whether complicated, unspecified whether persistent (CMS/HCC) documented in this encounter [facility] HealthcareInstructions* Attachments The following attachments cannot be sent through Care Everywhere. * Neck Spasm ([place]) [facility] Family History No Family [...] W/O CONTR MATRL Ray Mello, DO [address] [place] [address] Referral ID Status Reason Start Date Expiration Date V isits Requested Visits Authorized [id number] New Request 05/02/2024 05/27/2025 1 1 Specialty Diagnoses / Procedures Referred By Contac t Referred To Contact Neurological Surgery / Neurologic Surgery Diagnoses Neck pain Arm paresthesia, right Ray Mello, DO [address] [place] [address] Mauri Thompson MD [address] [place] [id number] Referral ID Status Reason Start Date Expiration Date V isits Requested Visits Authorized [id number] New Request 05/02/2024 05/27/2025 1 1 Referral ID Status Reason Start Date Expiration Date Visits Re quested Visits Authorized [id number] Closed 05/02/2024 05/27/2025 1 1 Additional Source Comments INFORMATION SOURCE (unrecogn ized section and content) DATE CREATED AUTHOR 04/21/2022 [facility] DATE CREATED AUTHOR AUTHOR'S ORGANIZ ATION 01/11/2024 [facility] EPIC DATE CREATED AUTHOR AUTHOR'S ORGANIZ ATION 06/09/2024 [facility] DATE CREATED AUTHOR AUTHOR'S ORGANIZ ATION 06/15/2024 [facility] Care Teams (unrecognized sec tion and content) Fish Net Maker Relationship Specialty Start Date End Date Mg Moyer MD [address] [place] [phone] PCP - General Family Medicine 07/20/23 Renee Blount NP [address] [place] [phone] Nurse Practitioner Family Medicine 08/22/22 Fish Net Maker Relationship Specialty Start Date End Date ShannenramanahoracioRenee choudhury CNP PCP - General Certified Nurse Practitioner 06/11/20 Fish Net Maker Relationship Specialty Start Date End Date ShannenramanakathyRenee WEB PROGRAMMER PCP - General Certified Nurse Practitioner 06/11/20 Fish Net Maker Relationship Specialty Start Date End Date ShannenramanaCaity chavezradha SAMANTHA PCP - General Certified Nurse Practitioner 06/11/20 Fish Net Maker Relationship Specialty Start Date End Date ShannenramanahoracioRenee choudhury SAMANTHA PCP - General Certified Nurse Practitioner 06/11/20 Fish Net Maker Relationship Specialty Start Date End Date ShannenramanahoracioRenee choudhury CNP PCP - General Certified Nurse Practitioner 06/11/20 Fish Net Maker Relationship Specialty Start Date End Date ShannenramanakathyRenee CNP PCP - General Certified Nurse Practitioner 06/11/20 Fish Net Maker Relationship Specialty Start Date End Date Mg Moyer MD [address] [place] [address] PCP - General Family Medicine 01/09/24 Renee Blount NP [address] [place] [phone] PCP - [facility] 02/20/24 Renee Blount NP [address] [place] [phone] Nurse Practitioner Family Medicine 08/22/22 Renee Blount NP [address] [place] [phone] Nurse Practitioner Family Medicine 01/09/24 Fish Net Maker Relationship Specialty Start Date End Date Renee Blount CNP PCP - General Certified Nurse Practitioner 06/11/20 Fish Net Maker Relationship Specialty Start Date End Date Mg Moyer MD [address] [place] [phone] PCP - General Family Medicine 01/09/24 Renee Blount NP [address] [place] [phone] PCP - [facility] 02/20/24 Renee Blount NP [address] [place] [phone] Nurse Practitioner Family Medicine 08/22/22 Renee Blount NP [address] [place] [phone] Nurse Practitioner Family Medicine 01/09/24 Fish Net Maker Relationship Specialty Start Date End Date Mg Moyer MD [address] [place] [phone] PCP - General [facility] 01/09/24 Renee Blount NP [address] [place] [phone] PCP - [facility] 02/20/24 Renee Blount NP [address] [place] [phone] Nurse Practitioner Family Medicine 08/22/22 Renee Blount NP [address] [place] [phone] Nurse Practitioner Family [facility] 01/09/24 Fish Net Maker Relationship Specialty Start Date End Date Renee Blount CNP PCP - General Certified Nurse Practitioner 06/11/20 Fish Net Maker Relationship Specialty Start Date End Date Renee Blount NP [address] [place] [phone] PCP - [facility] 02/20/24 Mg Moyer MD [address] [place] [phone] PCP - General Family [facility] 06/21/24 Renee Blount NP [address] [place] [phone] Nurse Practitioner Family Medicine 08/22/22 Renee Blount NP [address] [place] [phone] Nurse Practitioner Family Medicine 01/09/24 Fish Net Maker Relationship Specialty Start Date End Date Renee Blount NP [address] [place] [phone] [facility] - [facility] 02/20/24 Mg Moyer MD [address] [place] [phone] PCP - [facility] 06/21/24 Renee Blount NP [address] [place] [phone] Nurse Practitioner Family 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 Start Date End Date Renee Blount NP [address] [place] [phone] PCP - [facility] 02/20/24 Mg Moyer MD [address] [place] [phone] PCP - [facility] 06/21/24 Renee Blount NP [address] [place] [phone] Nurse Practitioner Family Medicine 08/22/22 Renee Blount NP [address] [place] [phone] Nurse Practitioner Family Medicine 01/09/24 Reason for [...] JT W/O CONTR Ray Carter, DO [address] [facility] [place] [address] Referral ID Status Reason Start Date Expiration Date Visits Re quested Visits Authorized [id number] Closed 05/02/2024 05/27/2025 1 1 Reason Comments [...] BE BASED ON THE PRIMARY CLINICAL RECORDS. [employer] provides no warranty or guarantee of the accuracy or completeness of information in this document.
== END 2024-07-18 10:42 | disposition home or self-care (01) ==
LOC: LAB 10:42
PROVIDERS: PCP Nurse Practitioner; Visit Provider Nurse Practitioner
DX: E11.9 Type 2 diabetes mellitus without complications (principal); Z79.4 Long term (current) use of insulin
CPT/HCPCS: 36415; 80048

== ENCOUNTER 2024-12-05 14:36 | Outpatient (OUT) | payer OTHER, SELFPAY ==
[2024-12-05 15:30] LABS: Estimated Average Glucose 143 mg/dL; Glycohemoglobin A1C 6.6 % (4.5-6.2)
[2024-12-05 15:31] LABS: Alanine Aminotransferase 14 U/L (14-59); Albumin Globulin Ratio 0.8; Albumin Level 3.2 g/dL (3.4-5.0); Alkaline Phosphatase 100 U/L (46-116); Anion Gap 13.4; Aspartate Amino Transferase 14 U/L (15-37); BUN Creatinine Ratio 11.8; Bilirubin Total 0.3 mg/dL (0.2-1.0); Calcium 8.8 mg/dL (8.5-10.1); Carbon Dioxide 24.5 mmol/L (21.0-32.0); Chloride 105 mmol/L (98-107); Chol HDL Ratio 2.7; Cholesterol 199 mg/dL (<=200); Estimated GFR (African America >60 (>=60 mL/min/1.73m^2); Estimated GFR (Non-African Ame >60 (>=60 mL/min/1.73m^2); Globulin 3.9 g/dL; Glucose 118 mg/dL (74-106); HDL Cholesterol 74 mg/dL (40-60); Potassium 3.9 mmol/L (3.5-5.1); Sodium 139 mmol/L (136-145); Total Protein 7.1 g/dL (6.4-8.2); Triglycerides 83 mg/dL (<=150); VLDL CHOLESTEROL 16.6 mg/dL
== END 2024-12-05 14:37 | disposition home or self-care (01) ==
LOC: LAB 14:38
PROVIDERS: PCP Nurse Practitioner; Visit Provider Nurse Practitioner
DX: E78.2 Mixed hyperlipidemia (principal); E11.9 Type 2 diabetes mellitus without complications; Z79.4 Long term (current) use of insulin
CPT/HCPCS: 36415; 80053; 80061; 83036